=== PATIENT | male | born 1935 | race Caucasian/White ===

== ENCOUNTER 2018-10-13 04:53 | Emergency (ER) | payer OTHER, MEDICARE ==
[2018-10-13] MEDS: HYDROmorphone 2 MG/ML SDV IM ONE (05:12)
--- NOTE | 2018-10-13 05:25 | EDM.PDOC ---
ED HPI GENERAL MEDICAL PROBLEM - General Chief Complaint: General Stated Complaint: FALL Time Seen by Provider: 10/13/18 04:55 Source of Information: Reports: Patient History Limitations: Reports: No Limitations - History of Present Illness INITIAL COMMENTS - FREE TEXT/NARRATIVE: Patient is 83 year old male with PMH of Parkinson disease, HTN and gout. Patient has severe end stage Parkinson's disease. According to son he fell of his wheelchair yesterday night, while brushing his teeth and son put him to bed. He woke up today for his Parkinson's medication and was moaning. Son taught he was moaning from pain, hence called ambulance. Also about 1 wk ago fell and hurt his left arm and has developed a large bruise of the left arm. Pt is moaning in the ER, but is moving his left arm and left hip to verbal commands. Onset Date: 10/12/18 Location: Reports: Lower Extremity, Left Quality: Reports: Ache Improves with: Reports: None Worsens with: Reports: None Associated Symptoms: Denies: Confusion, Chest Pain, Cough, Diaphoresis, Fever/ Chills, Headaches, Nausea/Vomiting, Rash, Seizure, Shortness of Breath, Syncope , Weakness - Related Data Allergies Allergy/AdvReac Type Severity Reaction Status Date / Time gabapentin Allergy Nausea and Verified 10/13/18 05:35 Vomiting ibuprofen Allergy Nausea and Verified 10/13/18 05:35 Vomiting lisinopril Allergy Cough Verified 10/13/18 05:35 morphine Allergy Respiratory Verified 10/13/18 05:35 Depression naproxen Allergy Nausea and Verified 10/13/18 05:35 Vomiting oxycodone [Oxycodone] Allergy Respiratory Verified 10/13/18 05:35 Depression Home Meds: Home Meds Acetaminophen [Tylenol] 650 mg PO Q4HR PRN 11/29/12 [History] Allopurinol [Zyloprim] 100 mg PO DAILY 11/29/12 [History] Aspirin/Calcium Carbonate/Mag [Aspirin Buffered 325 mg Tab] 325 mg PO DAILY [History] Atenolol 25 mg PO DAILY 11/29/12 [History] Carbidopa/Levodopa [Carbidopa-Levodopa 25-250] 1.5 each PO TID 11/29/12 [History ] Carbidopa/Levodopa [Sinemet Cr 50-200 Tablet] 1 each PO BEDTIME 11/29/12 [ History] Losartan [Cozaar] 50 mg PO DAILY 11/29/12 [History] Multivitamin [Multi Vitamin Daily] 1 each PO DAILY 11/29/12 [History] Fishtail-3/DHA/Epa/Fish Oil [Fish Oil 1,000 mg Softgel] 1 each PO DAILY 11/29/12 [ History] Omeprazole 20 mg PO DAILY 11/29/12 [History] amLODIPine Besylate [Norvasc] 10 mg PO DAILY 11/29/12 [History] hydroCHLOROthiazide [Hydrochlorothiazide] 12.5 mg PO DAILY 11/29/12 [History] Past Medical History Cardiovascular History: Reports: Hypertension ED ROS GENERAL - Review of Systems Review Of Systems: Unable To Obtain (due to severe end stage parkinson's disease.) Constitutional: Reports: Fever ED EXAM, GENERAL - Physical Exam Exam: See Below Exam Limited By: Other (moans, has lost ability to speak secondary to Parkinson's disease and is bedridden, needs help with ADLs) General Appearance: Alert, WD/WN, Other (moaning in the bed and drooling form his mouth. ) Eye Exam: Bilateral Eye: EOMI, PERRL Ears: Normal External Exam, Normal Canal, Hearing Grossly Normal, Normal TMs Ear Exam: Bilateral Ear: Auricle Normal, Canal Normal, TM normal Nose: Normal Inspection, Normal Mucosa, No Blood Throat/Mouth: Normal Inspection, Normal Lips, Normal Teeth, Normal Gums, Normal Oropharynx, Normal Voice, No Airway Compromise Head: Atraumatic, Normocephalic Neck: Normal Inspection, Supple, Non-Tender, Full Range of Motion Respiratory/Chest: No Respiratory Distress, Lungs Clear, Normal Breath Sounds, No Accessory Muscle Use, Chest Non-Tender Cardiovascular: Normal Peripheral Pulses, Regular Rate, Rhythm, No Edema, No Gallop, No JVD, No Murmur, No Rub GI/Abdominal: Normal Bowel Sounds, Soft, Non-Tender, No Organomegaly, No Distention, No Abnormal Bruit, No Mass Extremities: Normal Inspection, Normal Range of Motion, No Pedal Edema, Normal Capillary Refill, Other (left lower extremity:There is shortening of the left limb and the foot is laterally rotated. No obvious swelling or bruising. He is moving his left foot , knee and hip to verbal commands. Tender over the lateral aspect of hip to deep palpation.) Skin Exam: Warm, Intact, Ecchymosis (Old bruising of the left arm large area. He is able to move the arm and shoulder well. Non tender.), Other (left leg: patient has a chronic wound over the left leg which has been slowly healing. ) Course - Vital Signs Text/Narrative:: 83 year old elderly male with end stage Parkinson's disease, apparently had had a fall from his bed last night. Moaning in the emergency room. He has old skin bruising over left arm, but able to move his arm and forearm without discomfort.He does have normal range of motion at his left hip, knee and ankle. No skin bruising noted over lower extremity. He is slightly tender over the left hip laterally. X-ray left hip and pelvis shows fracture of the intertrochanteric fracture. Pt did receive Dilaudid 1mg Im on arrival. Pt's family reassured that he has left hip intertrochanteric fracture of the neck left lower extremity. I did contact [facility] and discussed patient with Dr. Eng, Orthopedic surgeon contact lens edge buffer. Dr Eng agrees to consult with patient. I did contact Dr. Kunz, Hospitalist contact lens edge buffer and discuss patient with him. CBC, CMP and PT and INR and EKG ordered for pre-op labs. Pt has Peña catheter in place. Has peripheral IV inserted. Pt appears comfortable.Will keep him NPO until evaluated at [facility]. Pt's CBC shows elevated white count of 18.4K. He was given Ancef 1gm IV. Have ordered Chest Xray portable which appear stable, no consolidation noted and UA is negative for infection. Also his CMP is stable other then slightly elevated creat of 1.32 from 1.21 which is his baseline. As he has been NPO have started him on NS 125cc/hr. PT and INR normal. His EKG in Sinus rhythm. Pt will be transferred by Ambulance to [facility].Pt is hemodynamically stable at the time of transfer. Further care per Dr. Eng/Dr. Kunz. Last Recorded V/S: Last Vital Signs Temp 99 F 10/13/18 05:48 Pulse 89 10/13/18 05:48 Resp 20 10/13/18 05:48 BP 139/61 10/13/18 05:48 Pulse Ox 94 L 10/13/18 05:48 - Orders/Labs/Meds Orders: Active Orders 24 hr Category Date Time Status EKG Documentation Completion [RC] ASDIRECTED Care 10/13/18 06:17 Active Insert Peña Catheter [Insert Urinary Catheter] [OM.PC] Care 10/13/18 06:15 Ordered Q24H Urinary Catheter Assessment [RC] ASDIRECTED Care 10/13/18 06:09 Active Chest 1V Frontal [CR] Stat Exams 10/13/18 07:52 Ordered UA W/MICROSCOPIC [URIN] Stat Lab 10/13/18 08:00 Results Sodium Chloride 0.9% @ 125 MLS/HR (1000ml) Med 10/13/18 08:00 Ordered Sodium Chloride 0.9% [Normal Saline] 1,000 ml IV ASDIRECTED Sodium Chloride 0.9% [Saline Flush] Med 10/13/18 06:10 Active 10 ml FLUSH ASDIRECTED PRN Peripheral IV Insertion Adult [OM.PC] Routine Oth 10/13/18 06:10 Ordered EKG 12 Lead [EK] Routine Ther 10/13/18 06:17 Ordered Medication Orders Sodium Chloride (Normal Saline) 1,000 mls @ 125 mls/hr IV ASDIRECTED MIRTA Last Admin: 10/13/18 08:20 Dose: 125 mls/hr Sodium Chloride (Saline Flush) 10 ml FLUSH ASDIRECTED PRN PRN Reason: Keep Vein Open Last Admin: 10/13/18 06:38 Dose: 10 ml Labs: Laboratory Tests 10/13/18 10/13/18 10/13/18 Range/Units 06:15 06:15 06:15 WBC 18.4 H D (4.0-11.0) K/uL RBC 3.15 L (4.50-6.50) M/uL Hgb 10.7 L (13.0-18.0) g/dL Hct 32.0 L (40.0-54.0) % MCV 102 H (76-96) fL MCH 34.0 H (27.0-32.0) pg MCHC 33.4 (31.0-35.0) g/dL RDW 13.4 (11.0-16.0) % Plt Count 226 (150-400) K/uL MPV 10.9 H (6.0-10.0) fL Neut % (Auto) 86.7 H (45.0-70.0) % Lymph % (Auto) 4.4 L (20.0-40.0) % [place] % (Auto) 8.6 (3.0-10.0) % Eos % (Auto) 0.1 L (1.0-5.0) % Baso % (Auto) 0.2 (0.0-0.5) % Neut # (Auto) 15.93 H (2.00-7.50) K/uL Lymph # (Auto) 0.80 L (1.50-4.00) K/uL [place] # (Auto) 1.58 H (0.20-0.80) K/uL Eos # (Auto) 0.02 L (0.04-0.40) K/uL Baso # (Auto) 0.03 (0.02-0.10) K/uL PT 9.6 (9.0-11.5) sec INR 1.0 (1.0-3.5) APTT 23.5 L (24.4-33.2) SECONDS Sodium 143 (136-145) mmol/L Potassium 5.0 (3.5-5.1) mmol/L Chloride 108 H (98-107) mmol/L Carbon Dioxide 24.1 (21.0-32.0) mmol/L Anion Gap 15.9 H (5.0-15.0) mmol/L BUN 37 H (8-26) mg/dL Creatinine 1.32 H (0.70-1.30) mg/dL Est Cr Clr Drug Dosing TNP Estimated GFR (MDRD) 52 L (>60) MLS/MIN BUN/Creatinine Ratio 28.0 H (6-25) Glucose 105 H (74-100) mg/dL Calcium 9.1 (8.5-10.1) mg/dL Total Bilirubin 1.0 D (0.0-1.0) mg/dL AST 29 (15-37) U/L ALT 13 (12-78) U/L Alkaline Phosphatase 153 H (46-116) U/L Total Protein 7.2 (6.4-8.2) g/dL Albumin 3.8 (3.4-5.0) g/dL Globulin 3.4 (2.2-4.2) g/dL Albumin/Globulin Ratio 1.1 (0.8-2.0) Urine Color Urine Appearance (CLEAR) Urine pH (5.0-8.0) Ur Specific [place] (1.003-1.030) Urine Protein (NEGATIVE) mg/dL Urine Glucose (UA) (NEGATIVE) mg/dL Urine Ketones (NEGATIVE) mg/dL Urine Occult Blood (NEGATIVE) Urine Nitrite (NEGATIVE) Urine Bilirubin (NEGATIVE) Urine Urobilinogen (0.2-1.0) E.U./dL Ur Leukocyte Esterase (NEGATIVE) 10/13/18 Range/Units 08:00 WBC (4.0-11.0) K/uL RBC (4.50-6.50) M/uL Hgb (13.0-18.0) g/dL Hct (40.0-54.0) % MCV (76-96) fL MCH (27.0-32.0) pg MCHC (31.0-35.0) g/dL RDW (11.0-16.0) % Plt Count (150-400) K/uL MPV (6.0-10.0) fL Neut % (Auto) (45.0-70.0) % Lymph % (Auto) (20.0-40.0) % [place] % (Auto) (3.0-10.0) % Eos % (Auto) (1.0-5.0) % Baso % (Auto) (0.0-0.5) % Neut # (Auto) (2.00-7.50) K/uL Lymph # (Auto) (1.50-4.00) K/uL [place] # (Auto) (0.20-0.80) K/uL Eos # (Auto) (0.04-0.40) K/uL Baso # (Auto) (0.02-0.10) K/uL PT (9.0-11.5) sec INR (1.0-3.5) APTT (24.4-33.2) SECONDS Sodium (136-145) mmol/L Potassium (3.5-5.1) mmol/L Chloride (98-107) mmol/L Carbon Dioxide (21.0-32.0) mmol/L Anion Gap (5.0-15.0) mmol/L BUN (8-26) mg/dL Creatinine (0.70-1.30) mg/dL Est Cr Clr Drug Dosing Estimated GFR (MDRD) (>60) MLS/MIN BUN/Creatinine Ratio (6-25) Glucose (74-100) mg/dL Calcium (8.5-10.1) mg/dL Total Bilirubin (0.0-1.0) mg/dL AST (15-37) U/L ALT (12-78) U/L Alkaline Phosphatase (46-116) U/L Total Protein (6.4-8.2) g/dL Albumin (3.4-5.0) g/dL Globulin (2.2-4.2) g/dL Albumin/Globulin Ratio (0.8-2.0) Urine Color Yellow Urine Appearance Clear (CLEAR) Urine pH 5.0 (5.0-8.0) Ur Specific [place] 1.020 (1.003-1.030) Urine Protein 30 H (NEGATIVE) mg/dL Urine Glucose (UA) Negative (NEGATIVE) mg/dL Urine Ketones 15 H (NEGATIVE) mg/dL Urine Occult Blood Trace-intact H (NEGATIVE) Urine Nitrite Negative (NEGATIVE) Urine Bilirubin Small H (NEGATIVE) Urine Urobilinogen 0.2 (0.2-1.0) E.U./dL Ur Leukocyte Esterase Negative (NEGATIVE) Meds: Medications Generic Name Dose Route Start Last Admin Trade Name Freq PRN Reason Stop Dose Admin Sodium Chloride 1,000 mls @ 125 mls/hr 10/13/18 08:00 10/13/18 08:20 Normal Saline IV 125 mls/hr ASDIRECTED MIRTA Administration Sodium Chloride 10 ml 10/13/18 06:10 10/13/18 06:38 Saline Flush FLUSH 10 ml ASDIRECTED PRN Administration Keep Vein Open Discontinued Medications Generic Name Dose Route Start Last Admin Trade Name Freq PRN Reason Stop Dose Admin Hydromorphone HCl 1 mg 10/13/18 05:36 10/13/18 05:12 Dilaudid IM 10/13/18 05:37 1 mg ONETIME ONE Administration Hydromorphone HCl 0.5 mg 10/13/18 06:39 10/13/18 06:38 Dilaudid IVPUSH 10/13/18 06:40 0.5 mg ONETIME ONE Administration Cefazolin Sodium 1 gm/ Sodium 50 mls @ 200 mls/hr 10/13/18 07:53 10/13/18 08: 22 Chloride IV 10/13/18 08:07 200 mls/hr ONETIME ONE Administration Departure - Departure Time of Disposition: 08:30 Disposition: DC/Tfer to Acute Hospital 02 Condition: Fair Clinical Impression: Fracture, intertrochanteric, left femur, Leucocytosis - Discharge Information *PRESCRIPTION DRUG MONITORING PROGRAM REVIEWED*: Not Applicable *COPY OF PRESCRIPTION DRUG MONITORING REPORT IN PATIENT [place]ARREN: Not Applicable Referrals: PCP,None [Primary Care Provider] - Forms: ED Department Discharge - Problem List & Annotations (1) Fracture, intertrochanteric, left femur SNOMED Code(s): 448627669 Code(s): S72.142A - DISPLACED INTERTROCHANTERIC FRACTURE OF LEFT FEMUR, INIT Status: Acute Current Visit: No Qualifiers: Encounter type: initial encounter - Problem List Review Problem List Initiated/Reviewed/Updated: Yes - My Orders Last 24 Hours: My Active Orders 10/13/18 06:09 Urinary Catheter Assessment [RC] ASDIRECTED 10/13/18 06:10 Sodium Chloride 0.9% [Saline Flush] 10 ml FLUSH ASDIRECTED PRN Peripheral IV Insertion Adult [OM.PC] Routine 10/13/18 06:15 Insert Peña Catheter [Insert Urinary Catheter] [OM.PC] Q24H 10/13/18 06:17 EKG Documentation Completion [RC] ASDIRECTED EKG 12 Lead [EK] Routine 10/13/18 07:52 Chest 1V Frontal [CR] Stat 10/13/18 08:00 UA W/MICROSCOPIC [URIN] Stat Sodium Chloride 0.9% @ 125 MLS/HR (1000ml) Sodium Chloride 0.9% [Normal Saline] 1,000 ml IV ASDIRECTED - Assessment/Plan Last 24 Hours: My Active Orders 10/13/18 06:09 Urinary Catheter Assessment [RC] ASDIRECTED 10/13/18 06:10 Sodium Chloride 0.9% [Saline Flush] 10 ml FLUSH ASDIRECTED PRN Peripheral IV Insertion Adult [OM.PC] Routine 10/13/18 06:15 Insert Peña Catheter [Insert Urinary Catheter] [OM.PC] Q24H 10/13/18 06:17 EKG Documentation Completion [RC] ASDIRECTED EKG 12 Lead [EK] Routine 10/13/18 07:52 Chest 1V Frontal [CR] Stat 10/13/18 08:00 UA W/MICROSCOPIC [URIN] Stat Sodium Chloride 0.9% @ 125 MLS/HR (1000ml) Sodium Chloride 0.9% [Normal Saline] 1,000 ml IV ASDIRECTED Assessment:: Left hip intertrochanteric fracture leucocytosis Plan: 3 year old elderly male with end stage Parkinson's disease, apparently had had a fall from his bed last night. Moaning in the emergency room. He has old skin bruising over left arm, but able to move his arm and forearm without discomfort.He does have normal range of motion at his left hip, knee and ankle. No skin bruising noted over lower extremity. He is slightly tender over the left hip laterally. X-ray left hip and pelvis shows fracture of the intertrochanteric fracture. Pt did receive Dilaudid 1mg Im on arrival. Pt's family reassured that he has left hip intertrochanteric fracture of the neck left lower extremity. I did contact [facility] and discussed patient with Dr. Eng, Orthopedic surgeon contact lens edge buffer. Dr Eng agrees to consult with patient. I did contact Dr. Kunz, Hospitalist contact lens edge buffer and discuss patient with him. CBC, CMP and PT and INR and EKG ordered for pre-op labs. Pt has Peña catheter in place. Has peripheral IV inserted. Pt appears comfortable.Will keep him NPO until evaluated at [facility]. Pt's CBC shows elevated white count of 18.4K. He was given Ancef 1gm IV. Have ordered Chest Xray portable which appear stable, no consolidation noted and UA is negative for infection. Also his CMP is stable other then slightly elevated creat of 1.32 from 1.21 which is his baseline. As he has been NPO have started him on NS 125cc/hr. PT and INR normal. His EKG in Sinus rhythm. Pt will be transferred by Ambulance to [facility].Pt is hemodynamically stable at the time of transfer. Further care per Dr. Eng/Dr. Kunz.
[2018-10-13] MEDS: Sodium Chloride 0.9% 10 ML Syringe FLUSH PRN (06:38)
[2018-10-13] MEDS: HYDROmorphone 2 MG/ML Syringe IVPUSH ONE (06:38)
[2018-10-13 06:51] VITALS: BP 139/61
--- NOTE | 2018-10-13 07:53 | CR ---
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 No other acute abnormalities. IMPRESSION: Left hip fracture. [id number] [facility]
[2018-10-13] MEDS: Sodium Chloride 0.9% 1,000 ML IV SCH (08:20)
[2018-10-13] MEDS: ceFAZolin 1 GM in Sodium Chloride 0.9% 50 ML IV ONE (08:22)
[2018-10-13] MEDS ORDERED: HYDROmorphone 2 MG/ML SDV ONE (08:34)
--- NOTE | 2018-10-13 11:21 | CR ---
DATE OF SERVICE: 10/13/18 CLINICAL DATA: elevated white count AP CHEST: Comparison is made to a prior exam dated 10/13/13. The patient has taken a very poor inspiration. The heart size is normal. The aorta is ectatic. The pulmonary vasculature appears prominent. It is probably accentuated by the poor inspiration. The lungs are clear. No pneumothorax. No pleural effusions. [id number] [facility]
== END 2018-10-13 08:40 ==
LOC: LB.ED 04:53
DX: S72.142A Displaced intertrochanteric fracture of left femur, initial encounter for closed fracture (principal); D72.829 Elevated white blood cell count, unspecified; I10 Essential (primary) hypertension; M10.9 Gout, unspecified; G20 Parkinson's disease; Z88.8 Allergy status to other drugs, medicaments and biological substances; Z88.6 Allergy status to analgesic agent; W05.0XXA Fall from non-moving wheelchair, initial encounter
CPT/HCPCS: 36415; 51702; 71045; 73502; 80053; 81001; 85025; 85610; 85730; 93005; 96365; 96372; 96375; 99284; A0425; A0429; J0690; J1170; J7030; J7050; 99285

== ENCOUNTER 2018-11-12 06:47 | Observation (INO) | payer OTHER, MEDICARE ==
--- NOTE | 2018-11-12 07:37 | EDM.PDOC ---
ED HPI GENERAL MEDICAL PROBLEM - General Chief Complaint: Lower Extremity Injury/Pain Stated Complaint: pain Time Seen by Provider: 11/12/18 07:18 Source of Information: Reports: Family, RN History Limitations: Reports: Altered Mental Status - History of Present Illness INITIAL COMMENTS - FREE TEXT/NARRATIVE: 83 yr male presents with acute pain to left hip, recent surgery to left hip and had been in a LTCF, and returned home. and son are providing care. States the pain to the left hip has become severe with transfer and wanted to have him checked. He did come by ambulance. Will get an x-ray to left hip and to abdomen, pt hasn't had a BM since Thursday. Treatments [employer]: Reports: Other (see below) Other Treatments [employer]: tramadol at 0500 - Related Data Allergies Allergy/AdvReac Type Severity Reaction Status Date / Time ibuprofen Allergy Nausea and Verified 10/13/18 05:35 Vomiting lisinopril Allergy Cough Verified 11/12/18 09:10 morphine Allergy Respiratory Verified 10/13/18 05:35 Depression naproxen Allergy Nausea and Verified 10/13/18 05:35 Vomiting oxycodone [Oxycodone] Allergy Respiratory Verified 10/13/18 05:35 Depression Home Meds: Home Meds Allopurinol [Zyloprim] 100 mg PO DAILY PRN 11/29/12 [History] Atenolol 25 mg PO DAILY 11/29/12 [History] Carbidopa/Levodopa [Carbidopa-Levodopa 25-250] 1 each PO Q2HR 11/29/12 [History] Carbidopa/Levodopa [Sinemet Cr 50-200 Tablet] 1 each PO BEDTIME 11/29/12 [ History] Losartan [Cozaar] 50 mg PO DAILY 11/29/12 [History] Omeprazole 20 mg PO DAILY 11/29/12 [History] amLODIPine Besylate [Norvasc] 10 mg PO DAILY 11/29/12 [History] hydroCHLOROthiazide [Hydrochlorothiazide] 12.5 mg PO DAILY 11/29/12 [History] Acetaminophen [Acetaminophen Extra Strength] 1,000 mg PO Q6HR PRN 11/12/18 [ History] Aspirin [Halfprin] 81 mg PO DAILY 11/12/18 [History] Gabapentin [Neurontin] 100 mg PO BID 11/12/18 [History] Latanoprost/Pf [Latanoprost 0.005% Eye Drop] 7.5 ml EYELF BEDTIME 11/12/18 [ History] Melatonin 3 mg PO BEDTIME PRN 11/12/18 [History] Polyethylene Glycol 3350 [MiraLAX] 17 gm PO DAILY PRN 11/12/18 [History] traMADol [Ultram] 50 mg PO QID PRN 11/12/18 [History] Past Medical History Cardiovascular History: Reports: Hypertension Review of Systems - Review of Systems Review Of Systems: See Below Mouth/Throat: Reports: No Symptoms Respiratory: Reports: No Symptoms GI/Abdominal: Reports: Other (No BM since Thursday) Genitourinary: Reports: Incontinence Musculoskeletal: Reports: Other (family states left hip pain with transfer today , rate pain 8/10 per visual observation at home) Skin: Reports: Other (suture line is CDI to left hip) ED EXAM, GENERAL - Physical Exam Exam: See Below Exam Limited By: No Limitations General Appearance: Alert, No Apparent Distress Throat/Mouth: No Airway Compromise Head: Atraumatic, Normocephalic Neck: Normal Inspection, Supple, Non-Tender Respiratory/Chest: No Respiratory Distress, Lungs Clear, Normal Breath Sounds Cardiovascular: Normal Peripheral Pulses, Regular Rate, Rhythm, No Edema GI/Abdominal: Soft, Non-Tender Extremities: No Pedal Edema Skin Exam: Warm, Dry, Normal Color Course - Vital Signs Last Recorded V/S: Last Vital Signs Temp 99.0 F 11/12/18 07:32 Pulse 63 11/12/18 07:32 Resp BP 154/51 H 11/12/18 07:32 Pulse Ox 93 L 11/12/18 07:32 - Orders/Labs/Meds Orders: Active Orders 24 hr Category Date Time Status CULTURE BLOOD [BC] Stat Lab 11/12/18 09:10 Received Medication Orders Non-Formulary Medication (Acetaminophen [Acetaminophen Extra Strength]) 1,000 mg PO Q6HR PRN PRN Reason: Pain Non-Formulary Medication (Amlodipine Besylate [Norvasc]) 10 mg PO DAILY [facility] Non-Formulary Medication (Aspirin [Halfprin]) 81 mg PO DAILY [facility] Non-Formulary Medication (Atenolol [Atenolol]) 25 mg PO DAILY [facility] Non-Formulary Medication (Carbidopa/Levodopa [Sinemet Cr 50-200]) 1 each PO BEDTIME [facility] Non-Formulary Medication (Gabapentin [Neurontin]) 100 mg PO BID [facility] Non-Formulary Medication (Hydrochlorothiazide [Hydrochlorothiazide]) 12.5 mg PO DAILY [facility] Non-Formulary Medication (Latanoprost/Pf [Latanoprost 0.005% Eye Drop]) 7.5 ml EYELF BEDTIME [facility] Non-Formulary Medication (Losartan [Cozaar]) 50 mg PO DAILY [facility] Non-Formulary Medication (Melatonin [Melatonin]) 3 mg PO BEDTIME PRN PRN Reason: Sleep Non-Formulary Medication (Omeprazole [Omeprazole]) 20 mg PO DAILY [facility] Non-Formulary Medication (Polyethylene Glycol 3350 [Miralax]) 17 gm PO DAILY PRN PRN Reason: Constipation Non-Formulary Medication (Tramadol [Ultram]) 50 mg PO QID PRN PRN Reason: Pain Labs: Laboratory Tests 11/12/18 11/12/18 11/12/18 Range/Units 07:35 07:35 08:25 WBC 15.8 H (4.0-11.0) K/uL RBC 3.17 L (4.50-6.50) M/uL Hgb 10.4 L (13.0-18.0) g/dL Hct 31.7 L (40.0-54.0) % MCV 100 H (76-96) fL MCH 32.8 H (27.0-32.0) pg MCHC 32.8 (31.0-35.0) g/dL RDW 14.4 (11.0-16.0) % Plt Count 250 (150-400) K/uL MPV 9.5 (6.0-10.0) fL Neut % (Auto) 75.1 H (45.0-70.0) % Lymph % (Auto) 13.7 L (20.0-40.0) % [place] % (Auto) 9.5 (3.0-10.0) % Eos % (Auto) 1.5 (1.0-5.0) % Baso % (Auto) 0.2 (0.0-0.5) % Neut # (Auto) 11.91 H (2.00-7.50) K/uL Lymph # (Auto) 2.17 (1.50-4.00) K/uL [place] # (Auto) 1.50 H (0.20-0.80) K/uL Eos # (Auto) 0.23 (0.04-0.40) K/uL Baso # (Auto) 0.03 (0.02-0.10) K/uL Sodium 137 (136-145) mmol/L Potassium 4.4 (3.5-5.1) mmol/L Chloride 100 (98-107) mmol/L Carbon Dioxide 27.0 (21.0-32.0) mmol/L Anion Gap 14.4 (5.0-15.0) mmol/L BUN 33 H (8-26) mg/dL Creatinine 0.95 D (0.70-1.30) mg/dL Est Cr Clr Drug Dosing TNP Estimated GFR (MDRD) > 60 (>60) MLS/MIN BUN/Creatinine Ratio 34.7 H (6-25) Glucose 89 (74-100) mg/dL Lactic Acid 0.78 L (0.90-1.70) mmol/L Calcium 8.7 (8.5-10.1) mg/dL Urine Color Urine Appearance (CLEAR) Urine pH (5.0-8.0) Ur Specific [place] (1.003-1.030) Urine Protein (NEGATIVE) mg/dL Urine Glucose (UA) (NEGATIVE) mg/dL Urine Ketones (NEGATIVE) mg/dL Urine Occult Blood (NEGATIVE) Urine Nitrite (NEGATIVE) Urine Bilirubin (NEGATIVE) Urine Urobilinogen (0.2-1.0) E.U./dL Ur Leukocyte Esterase (NEGATIVE) 11/12/18 Range/Units 09:00 WBC (4.0-11.0) K/uL RBC (4.50-6.50) M/uL Hgb (13.0-18.0) g/dL Hct (40.0-54.0) % MCV (76-96) fL MCH (27.0-32.0) pg MCHC (31.0-35.0) g/dL RDW (11.0-16.0) % Plt Count (150-400) K/uL MPV (6.0-10.0) fL Neut % (Auto) (45.0-70.0) % Lymph % (Auto) (20.0-40.0) % [place] % (Auto) (3.0-10.0) % Eos % (Auto) (1.0-5.0) % Baso % (Auto) (0.0-0.5) % Neut # (Auto) (2.00-7.50) K/uL Lymph # (Auto) (1.50-4.00) K/uL [place] # (Auto) (0.20-0.80) K/uL Eos # (Auto) (0.04-0.40) K/uL Baso # (Auto) (0.02-0.10) K/uL Sodium (136-145) mmol/L Potassium (3.5-5.1) mmol/L Chloride (98-107) mmol/L Carbon Dioxide (21.0-32.0) mmol/L Anion Gap (5.0-15.0) mmol/L BUN (8-26) mg/dL Creatinine (0.70-1.30) mg/dL Est Cr Clr Drug Dosing Estimated GFR (MDRD) (>60) MLS/MIN BUN/Creatinine Ratio (6-25) Glucose (74-100) mg/dL Lactic Acid (0.90-1.70) mmol/L Calcium (8.5-10.1) mg/dL Urine Color Yellow Urine Appearance Clear (CLEAR) Urine pH 6.5 (5.0-8.0) Ur Specific [place] 1.015 (1.003-1.030) Urine Protein Negative (NEGATIVE) mg/dL Urine Glucose (UA) Negative (NEGATIVE) mg/dL Urine Ketones Trace H (NEGATIVE) mg/dL Urine Occult Blood Negative (NEGATIVE) Urine Nitrite Negative (NEGATIVE) Urine Bilirubin Negative (NEGATIVE) Urine Urobilinogen 0.2 (0.2-1.0) E.U./dL Ur Leukocyte Esterase Negative (NEGATIVE) Meds: Medications Generic Name Dose Route Start Last Admin Trade Name Freq PRN Reason Stop Dose Admin Non-Formulary Medication 1,000 mg 11/12/18 10:21 Acetaminophen [Acetaminophen Extra Strength] PO Q6HR PRN Pain Non-Formulary Medication 10 mg 11/12/18 10:30 Amlodipine Besylate [Norvasc] PO DAILY [facility] Non-Formulary Medication 81 mg 11/12/18 10:30 Aspirin [Halfprin] PO DAILY [facility] Non-Formulary Medication 25 mg 11/12/18 10:30 Atenolol [Atenolol] PO DAILY [facility] Non-Formulary Medication 1 each 11/12/18 20:00 Carbidopa/Levodopa [Sinemet Cr 50-200] PO BEDTIME [facility] Non-Formulary Medication 100 mg 11/12/18 10:30 Gabapentin [Neurontin] PO BID [facility] Non-Formulary Medication 12.5 mg 11/13/18 08:00 Hydrochlorothiazide [Hydrochlorothiazide] PO DAILY [facility] Non-Formulary Medication 7.5 ml 11/12/18 20:00 Latanoprost/Pf [Latanoprost 0.005% Eye Drop] EYELF BEDTIME [facility] Non-Formulary Medication 50 mg 11/12/18 10:30 Losartan [Cozaar] PO DAILY [facility] Non-Formulary Medication 3 mg 11/12/18 10:26 Melatonin [Melatonin] PO BEDTIME PRN Sleep Non-Formulary Medication 20 mg 11/12/18 20:00 Omeprazole [Omeprazole] PO DAILY [facility] Non-Formulary Medication 17 gm 11/12/18 10:26 Polyethylene Glycol 3350 [Miralax] PO DAILY PRN Constipation Non-Formulary Medication 50 mg 11/12/18 10:26 Tramadol [Ultram] PO QID PRN Pain Discontinued Medications Generic Name Dose Route Start Last Admin Trade Name Freq PRN Reason Stop Dose Admin Sodium Biphosphate/Sodium Phosphate 133 ml 11/12/18 09:14 Fleet Enema RECTAL 11/12/18 09:15 ONETIME ONE - Re-Assessments/Exams Free Text/Narrative Re-Assessment/Exam: 11/12/18 09:17 left hip pain and abdominal pain: S/P left hip replacement, hx of parkinson's. X-ray of left hip and abdomen. Excessive BM to abdomen. Radiology read of x-rays. No free air noted. Slight elevated WBC, U/A ordered , lactic acid and blood cultures. will place on observation and administer soap suds enema. Medication as at home. VS every 4 hour 0 Departure - Departure Time of Disposition: 09:40 Disposition: Refer to Observation Condition: Fair Clinical Impression: Abdominal pain, Left hip pain, Constipation - Discharge Information *PRESCRIPTION DRUG MONITORING PROGRAM REVIEWED*: Not Applicable *COPY OF PRESCRIPTION DRUG MONITORING REPORT IN PATIENT [place]ARREN: Not Applicable - My Orders Last 24 Hours: My Active Orders 11/12/18 09:10 CULTURE BLOOD [BC] Stat - Assessment/Plan Last 24 Hours: My Active Orders 11/12/18 09:10 CULTURE BLOOD [BC] Stat Plan: Left hip pain and abdominal pain, constipation: X-ray of left hip and abdomen. Excessive BM to abdomen. Radiology read of x- rays. No free air noted. Slight elevated WBC, U/A ordered, lactic acid and blood cultures. will place on observation and administer soap suds enema. Medication as at home. VS every 4 hour
--- NOTE | 2018-11-12 08:53 | CR ---
DATE OF SERVICE: 11/12/2018 CLINICAL DATA: Pain Supine Abdomen: No priors. There is a large amount of stool present throughout the colon consistent with constipation. There is some small bowel gas. No dilated loops of small bowel. 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 There are laminectomy defects at the L4 and L5 levels. There are vascular calcifications in the pelvis. MTDD
--- NOTE | 2018-11-12 08:56 | CR ---
DATE OF SERVICE: 11/12/2018 CLINICAL DATA: Pain Left Hip: Comparison is made to a prior exam dated 05 October 2018. The patient is status post internal fixation of a left intertrochanteric fracture. No evidence of acute fracture or dislocation. 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 There are vascular calcifications in the soft tissues. MTDD
[2018-11-12] MEDS ORDERED: Sodium Phosphate,Monobasic/Sodium Phosphate,Dibasic Enema 133 ML Bottle RECTAL ONE (09:14)
[2018-11-12] MEDS ORDERED: Non-Formulary Medication 1 Each (Melatonin [Melatonin] 3 MG) PO PRN (10:26)
[2018-11-12] MEDS ORDERED: ATENOLOL 25 MG PO SCH (10:30)
[2018-11-12] MEDS ORDERED: Non-Formulary Medication 1 Each (Aspirin [Halfprin] 81 MG) PO SCH (10:30)
[2018-11-12] MEDS ORDERED: Non-Formulary Medication 1 Each (Losartan [Cozaar] 50 MG) PO SCH (10:30)
[2018-11-12] MEDS: AMLODIPINE BESYLATE 10 MG PO SCH (10:55)
[2018-11-12] MEDS ORDERED: traMADol 50 MG Tab ONE (11:02)
[2018-11-12] MEDS: CARBIDOPA PO SCH ×5 (14:34→21:48)
[2018-11-12] MEDS: [UNRECOGNIZED DRUG - OTHER] PO SCH ×5 (14:34→21:48)
[2018-11-12] MEDS ORDERED: Polyethylene Glycol 3350 Powder 17 GM Packet ONE (14:44)
[2018-11-12] MEDS: OMEPRAZOLE 20 MG PO SCH (20:20)
[2018-11-12] MEDS: Non-Formulary Medication 1 Each (Latanoprost/Pf [Latanoprost 0.005% Eye Drop] 7.5 ML) EYELF SCH (20:29)
[2018-11-13] MEDS: [UNRECOGNIZED DRUG - OTHER] PO SCH ×5 (00:07→22:41)
[2018-11-13] MEDS: CARBIDOPA PO SCH ×5 (00:07→22:41)
[2018-11-13] MEDS: ACETAMINOPHEN 1000 MG PO PRN ×2 (03:00→04:09)
[2018-11-13] MEDS ORDERED: Acetaminophen 325 MG Tab ONE (03:51)
[2018-11-13] MEDS ORDERED: Acetaminophen 500 MG Tab ONE (04:08)
[2018-11-13] MEDS ORDERED: [UNRECOGNIZED DRUG - OTHER] PO SCH (08:00)
[2018-11-13] MEDS ORDERED: CARBIDOPA PO SCH (08:00)
[2018-11-13] MEDS ORDERED: Non-Formulary Medication 1 Each (Hydrochlorothiazide [Hydrochlorothiazide] 12.5 MG) PO SCH (08:00)
[2018-11-13] MEDS: AMLODIPINE BESYLATE 10 MG PO SCH (08:39)
[2018-11-13] MEDS: HYDROCHLOROTHIAZIDE 25 MG PO SCH (08:42)
[2018-11-13] MEDS: OMEPRAZOLE 20 MG PO SCH (08:45)
[2018-11-13] MEDS: Aspirin 81 MG Tab.EC PO SCH (11:30)
--- NOTE | 2018-11-13 11:42 | PCM.PN ---
- General Info Date of Service: 11/13/18 Admission Dx/Problem (Free Text): left hip pain, abdominal pain and constipation Subjective Update: No verbal response from pt. Hx of Parkinson. Staff report pt is continuing with pain and grimace with turning. No BM since Thursday per family. Small BM yesterday with soap suds enema Functional Status: Reports: Tolerating Diet, Urinating - Review of Systems Gastrointestinal: Reports: Constipation. 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) - Patient Data Vitals - Most Recent: Last Vital Signs Temp 98.3 F 11/13/18 08:00 Pulse 71 11/13/18 08:00 Resp 20 11/13/18 08:00 BP 145/66 H 11/13/18 08:00 Pulse Ox 96 11/13/18 08:00 Weight - Most Recent: 168 lb 9 oz Faheem Results Last 24 Hours: Microbiology 11/12/18 09:10 Aerobic Blood Culture - Preliminary Blood NO GROWTH AFTER 1 DAY Anaerobic Blood Culture - Preliminary NO GROWTH AFTER 1 DAY Med Orders - Current: Current Medications Acetaminophen (Tylenol Extra Strength) 1,000 mg PO Q6H PRN PRN Reason: PAIN Aspirin (Halfprin) 81 mg PO DAILY [facility] (Amlodipine Besylate [Norvasc] 10 Mg)*Pt Own Med* 10 mg PO DAILY [facility] Last Admin: 11/13/18 08:39 Dose: 10 mg (Carbidopa/Levodopa [Sinemet Cr 50-200] 1 Each)*Pt Own Med* 1 each PO BEDTIME [facility] Last Admin: 11/12/18 20:18 Dose: 1 each (Gabapentin [ Neurontin] 100 Mg)* Pt Own Med* 100 mg PO BID [facility] Last Admin: 11/13/18 08:41 Dose: 100 mg Non-Formulary Medication (Latanoprost/Pf [Latanoprost 0.005% Eye Drop]) 7.5 ml EYELF BEDTIME [facility] Last Admin: 11/12/18 20:29 Dose: Not Given Non-Formulary Medication (Melatonin [Melatonin]) 3 mg PO BEDTIME PRN PRN Reason: Sleep (Omeprazole [ Omeprazole] 20 Mg)* Pt Own Med* 20 mg PO DAILY [facility] Last Admin: 11/13/18 08:45 Dose: 20 mg (Tramadol [Ultram] (50 Mg)*Pt Own Med*) 50 mg PO QID PRN PRN Reason: Pain Last Admin: 11/13/18 04:03 Dose: 50 mg (Atenolol [Atenolol] 50 Mg Tab)*Pt Own Med* 0 mg PO DAILY [facility] Last Admin: 11/13/18 08:40 Dose: 25 mg (Hydrochlorothiazide [ Hydrochlorothiazide] 25 Mg Tab)*Pt Own Med* 0 mg PO DAILY [facility] Last Admin: 11/13/18 08:42 Dose: 12.5 mg (Losartan [Cozaar] 100 Mg Tab)*Pt Own Med* 0 mg PO DAILY [facility] Last Admin: 11/13/18 08:44 Dose: 50 mg Carbidopa 25mg/Levodopa 250mg Tablet*Pt Own Med* 1 each PO ASDIRECTED [facility] Polyethylene Glycol (Miralax) 17 gm PO DAILY PRN PRN Reason: Constipation Discontinued Medications Acetaminophen (Tylenol) Confirm Administered Dose 650 mg .ROUTE .STK-MED ONE Stop: 11/13/18 03:52 Last Admin: 11/13/18 04:05 Dose: Not Given Acetaminophen (Tylenol Extra Strength) Confirm Administered Dose 1,000 mg .ROUTE .STK-MED ONE Stop: 11/13/18 04:09 Last Admin: 11/13/18 07:13 Dose: Not Given Non-Formulary Medication (Acetaminophen [Acetaminophen Extra Strength]) 1,000 mg PO Q6HR PRN PRN Reason: Pain Last Admin: 11/13/18 04:09 Dose: 1,000 mg Non-Formulary Medication (Aspirin [Halfprin]) 81 mg PO DAILY [facility] Last Admin: 11/12/18 10:55 Dose: Not Given Non-Formulary Medication (Atenolol [Atenolol]) 25 mg PO DAILY [facility] Last Admin: 11/12/18 10:56 Dose: Not Given Non-Formulary Medication (Hydrochlorothiazide [Hydrochlorothiazide]) 12.5 mg PO DAILY [facility] Non-Formulary Medication (Losartan [Cozaar]) 50 mg PO DAILY [facility] Last Admin: 11/12/18 10:56 Dose: Not Given Non-Formulary Medication (Polyethylene Glycol 3350 [Miralax]) 17 gm PO DAILY PRN PRN Reason: Constipation Carbidopa 25mg/Levodopa 250mg Tablet*Pt Own Med* 1 each PO Q2H [facility] Last Admin: 11/13/18 06:17 Dose: 1 each Polyethylene Glycol (Miralax) Confirm Administered Dose 17 gm .ROUTE .STK-MED ONE Stop: 11/12/18 14:45 Last Admin: 11/12/18 14:51 Dose: 17 gm Sodium Biphosphate/Sodium Phosphate (Fleet Enema) 133 ml RECTAL ONETIME ONE Stop: 11/12/18 09:15 Last Admin: 11/12/18 09:50 Dose: 133 ml Tramadol HCl (Ultram) Confirm Administered Dose 50 mg .ROUTE .STK-MED ONE Stop: 11/12/18 11:03 Last Admin: 11/12/18 11:18 Dose: Not Given - Exam General: Cooperative, No Acute Distress, Other (Awakens for medications and meals) HEENT: Mucous Membr. Moist/[place] Neck: Supple, Trachea Midline, No JVD Lungs: Clear to Auscultation, Normal Respiratory Effort, Other (decreased to bases) Cardiovascular: Regular Rate, Regular Rhythm, No Murmurs GI/Abdominal Exam: Normal Bowel Sounds, Soft, Non-Tender, No Distention Extremities: No Pedal Edema, Normal Capillary Refill, Other (No pain during exam. Staff medicating with tramadol and tylenol, crushing medications, giving in soft foods and ensure or juice.) Skin: Other (chronic wound to left dixon, Allevyn to dixon changed daily. Family states before hip surgery, PT had assisted with wound care, much improved.) Psy/Mental Status: Other (Pt is nodes occasional, mostly nonverbal.) - Problem List & Annotations (1) Abdominal pain SNOMED Code(s): 82839775 Code(s): R10.9 - UNSPECIFIED ABDOMINAL PAIN Status: Acute Current Visit: Yes (2) Constipation SNOMED Code(s): 68131327 Code(s): K59.00 - CONSTIPATION, UNSPECIFIED Status: Acute Current Visit: Yes (3) Left hip pain SNOMED Code(s): 65597158 Code(s): M25.552 - PAIN IN LEFT HIP Status: Acute Current Visit: Yes - Problem List Review Problem List Initiated/Reviewed/Updated: Yes - My Orders Last 24 Hours: My Active Orders 11/12/18 14:50 Polyethylene Glycol 3350 [MiraLAX] 17 gm PO DAILY PRN 11/12/18 15:49 CULTURE MRSA SURVEY [RM] Routine 11/12/18 20:00 Carbidopa/Levodopa [Sinemet CR 50-200] 1 each PO BEDTIME Latanoprost/Pf [Latanoprost 0.005% Eye Drop] 7.5 ml EYELF BEDTIME Omeprazole [Omeprazole] 20 mg PO DAILY 11/12/18 Lunch Soft Diet [DIET] 11/13/18 08:00 Acetaminophen [Tylenol Extra Strength] 1,000 mg PO Q6H PRN Aspirin [Halfprin] 81 mg PO DAILY Atenolol [Atenolol] 0 mg PO DAILY Hydrochlorothiazide [Hydrochlorothiazide] 0 mg PO DAILY Losartan [Cozaar] 0 mg PO DAILY Non-Formulary Medication [NF Drug] 1 each PO ASDIRECTED - Plan Plan:: Pain: Continue to position change every 2 hour and prn. Medicate with Tylenol or Tramadol as needed. X-ray yesterday and no fracture and no displacement. Surgical scars intact. Constipation: Continue with miralax daily and prune juice with meals as tolerated. Leukocytosis: U/A without infection, lactic acid level low 0.78 and no acute respiratory concerns. Pt may have acute elevation of WBC with pain, constipation, and stress. Continue to monitor for any infections. Discharge planning: Will discharge tomorrow to family care. Son is staying with pt and his mom to assist with total cares of this pt at home. Family requesting another day of pain medication before pt discharge.
[2018-11-13] MEDS: Acetaminophen 500 MG Tab PO PRN ×2 (11:50→22:44)
[2018-11-13] MEDS: Carbidopa/Levodopa 25-100 MG Tab PO SCH ×5 (12:00→23:05)
[2018-11-13] MEDS: Polyethylene Glycol 3350 Powder 17 GM Packet PO PRN (12:07)
[2018-11-13] MEDS: Non-Formulary Medication 1 Each (Latanoprost/Pf [Latanoprost 0.005% Eye Drop] 7.5 ML) EYELF SCH (20:27)
[2018-11-14] MEDS: [UNRECOGNIZED DRUG - OTHER] PO SCH ×4 (06:10→12:15)
[2018-11-14] MEDS: CARBIDOPA PO SCH ×4 (06:10→12:15)
[2018-11-14] MEDS: AMLODIPINE BESYLATE 10 MG PO SCH (08:00)
[2018-11-14] MEDS: Aspirin 81 MG Tab.EC PO SCH (08:01)
[2018-11-14] MEDS: OMEPRAZOLE 20 MG PO SCH (08:02)
[2018-11-14] MEDS: HYDROCHLOROTHIAZIDE 25 MG PO SCH (08:03)
[2018-11-14] MEDS: Polyethylene Glycol 3350 Powder 17 GM Packet PO PRN (10:18)
[2018-11-14 11:20] VITALS: BP 146/63; PULSE 72
--- NOTE | 2018-11-14 13:09 | PCM.DCSUM1 ---
Discharge Summary - Hospital Course HPI Initial Comments: This 83 yr male presented to ER via ambulance with severe pain to left hip, abdomen and constipation. X-rays completed of hip and abdomen. No acute findings. Left hip placement is intact, from 10-13-18 fracture per radiology read of x-rays. Pt has history of hypertension, parkinsonism, unequal leg length, arthropathy, paralysis agitans, chronic wound of left dixon, S/P left intertrochanteris fracture and surgery with intramedullary nailing on 10-14-18. Leukocytosis noted in ER and has improved 11.5 today, no UTI noted, afebrile, no cough noted. Pt was admitted for observation for pain control and constipation. Pain has been controlled with Tramadol and Tylenol Constipation noted, enema given and Miralax and pt did have a moderate formed BM today. Will discharge today to family care with continuing home medications. Daily Miralax for regular BM Diagnosis: Stroke: No - Discharge Data Discharge Date: 11/14/18 Discharge Disposition: Home, Self-Care 01 Condition: Good - Referral to Home Health Date of Face to Face Encounter: 11/14/18 (No acute changes, parkinsons and s/p left hip surgery) Primary Care Physician: PCP None - Discharge Diagnosis/Problem(s) (1) Abdominal pain SNOMED Code(s): 43078257 ICD Code: R10.9 - UNSPECIFIED ABDOMINAL PAIN Status: Acute Current Visit : Yes (2) Constipation SNOMED Code(s): 31494894 ICD Code: K59.00 - CONSTIPATION, UNSPECIFIED Status: Acute Current Visit : Yes (3) Left hip pain SNOMED Code(s): 58773870 ICD Code: M25.552 - PAIN IN LEFT HIP Status: Acute Current Visit: Yes - Patient Instructions Diet: Mechanical Soft Activity: Partial Weight Bearing Notify Provider of: Increased Pain, Nausea and/or Vomiting - Discharge Plan *PRESCRIPTION DRUG MONITORING PROGRAM REVIEWED*: Not Applicable *COPY OF PRESCRIPTION DRUG MONITORING REPORT IN PATIENT WARREN: Not Applicable Home Medications: Home Meds Allopurinol [Zyloprim] 100 mg PO DAILY PRN 11/29/12 [History] Atenolol 25 mg PO DAILY 11/29/12 [History] Carbidopa/Levodopa [Carbidopa-Levodopa 25-250] 1 each PO Q2HR 11/29/12 [History] Carbidopa/Levodopa [Sinemet CR 50-200] 1 each PO BEDTIME 11/29/12 [History] Losartan [Cozaar] 50 mg PO DAILY 11/29/12 [History] Omeprazole 20 mg PO DAILY 11/29/12 [History] amLODIPine Besylate [Norvasc] 10 mg PO DAILY 11/29/12 [History] hydroCHLOROthiazide [Hydrochlorothiazide] 12.5 mg PO DAILY 11/29/12 [History] Acetaminophen [Acetaminophen Extra Strength] 1,000 mg PO Q6HR PRN 11/12/18 [ History] Aspirin [Halfprin] 81 mg PO DAILY 11/12/18 [History] Gabapentin [Neurontin] 100 mg PO BID 11/12/18 [History] Latanoprost/Pf [Latanoprost 0.005% Eye Drop] 7.5 ml EYELF BEDTIME 11/12/18 [ History] Melatonin 3 mg PO BEDTIME PRN 11/12/18 [History] Polyethylene Glycol 3350 [MiraLAX] 17 gm PO DAILY PRN 11/12/18 [History] traMADol [Ultram] 50 mg PO QID PRN 11/12/18 [History] Non-Formulary Medication [NF Drug] 1 each PO Q2HR each 11/14/18 [Rx] Patient Handouts: Constipation, Adult, [id number] Forms: ED Department Discharge Referrals: PCP,Unknown [Ordering Only Provider] - - Discharge Summary/Plan Comment DC Time >30 min.: No (No change in cares, Tramadol and Tylenol prn) Discharge Summary/Plan Comment: Discharge to home to care of family. Assist needed to get pt into home. Tramadol and Tylenol prn for relief of pain. Miralax daily to prevent constipation. May hold prn if diarrhea. F/U in clinic is prn. - General Info Date of Service: 11/14/18 Admission Dx/Problem (Free Text: left hip pain, abdominal pain and constipation Subjective Update: Pt is nonverbal. He is alert and moving arms well today and responding to nurse. RN reports pt had moderate stool today and pain has been controlled. Symptoms as noted per staff. Functional Status: Reports: Pain Controlled, Tolerating Diet, Urinating - Review of Systems General: Reports: No Symptoms. Denies: Fever Gastrointestinal: Reports: Other (constipation resolved). Denies: Vomiting Genitourinary: Reports: Other (voided on toilet today, wears attends) - Patient Data Vitals - Most Recent: Last Vital Signs Temp 98.1 F 11/14/18 11:19 Pulse 72 11/14/18 11:19 Resp 20 11/14/18 11:19 BP 146/63 H 11/14/18 11:19 Pulse Ox 97 11/14/18 11:19 Weight - Most Recent: 168 lb 9 oz Lab Results - Last 24 hrs: Laboratory Results - last 24 hr 11/14/18 Range/Units 12:25 WBC 11.5 H D (4.0-11.0) K/uL RBC 3.58 L (4.50-6.50) M/uL Hgb 11.7 L (13.0-18.0) g/dL Hct 35.2 L (40.0-54.0) % MCV 98 H (76-96) fL MCH 32.7 H (27.0-32.0) pg MCHC 33.2 (31.0-35.0) g/dL RDW 14.0 (11.0-16.0) % Plt Count 370 D (150-400) K/uL MPV 9.1 (6.0-10.0) fL Neut % (Auto) 76.6 H (45.0-70.0) % Lymph % (Auto) 11.9 L (20.0-40.0) % [place] % (Auto) 10.5 H (3.0-10.0) % Eos % (Auto) 0.7 L (1.0-5.0) % Baso % (Auto) 0.3 (0.0-0.5) % Neut # (Auto) 8.83 H (2.00-7.50) K/uL Lymph # (Auto) 1.37 L (1.50-4.00) K/uL [place] # (Auto) 1.21 H (0.20-0.80) K/uL Eos # (Auto) 0.08 (0.04-0.40) K/uL Baso # (Auto) 0.03 (0.02-0.10) K/uL ALIX Results - Last 24 hrs: Microbiology 11/12/18 09:10 Aerobic Blood Culture - Preliminary Blood NO GROWTH AFTER 2 DAYS Anaerobic Blood Culture - Preliminary NO GROWTH AFTER 2 DAYS Med Orders - Current: Current Medications Acetaminophen (Tylenol Extra Strength) 1,000 mg PO Q6H PRN PRN Reason: PAIN Last Admin: 11/13/18 22:44 Dose: 1,000 mg Aspirin (Halfprin) 81 mg PO DAILY [facility] Last Admin: 11/14/18 08:01 Dose: 81 mg (Amlodipine Besylate [Norvasc] 10 Mg)*Pt Own Med* 10 mg PO DAILY [facility] Last Admin: 11/14/18 08:00 Dose: 10 mg (Carbidopa/Levodopa [Sinemet Cr 50-200] 1 Each)*Pt Own Med* 1 each PO BEDTIME [facility] Last Admin: 11/13/18 20:27 Dose: 1 each (Gabapentin [ Neurontin] 100 Mg)* Pt Own Med* 100 mg PO BID [facility] Last Admin: 11/14/18 08:02 Dose: 100 mg Non-Formulary Medication (Latanoprost/Pf [Latanoprost 0.005% Eye Drop]) 7.5 ml EYELF BEDTIME [facility] Last Admin: 11/13/18 20:27 Dose: Not Given Non-Formulary Medication (Melatonin [Melatonin]) 3 mg PO BEDTIME PRN PRN Reason: Sleep (Omeprazole [ Omeprazole] 20 Mg)* Pt Own Med* 20 mg PO DAILY [facility] Last Admin: 11/14/18 08:02 Dose: 20 mg (Tramadol [Ultram] (50 Mg)*Pt Own Med*) 50 mg PO QID PRN PRN Reason: Pain Last Admin: 11/14/18 11:00 Dose: 50 mg (Atenolol [Atenolol] 50 Mg Tab)*Pt Own Med* 0 mg PO DAILY [facility] Last Admin: 11/14/18 08:02 Dose: 25 mg (Hydrochlorothiazide [ Hydrochlorothiazide] 25 Mg Tab)*Pt Own Med* 0 mg PO DAILY [facility] Last Admin: 11/14/18 08:03 Dose: 12.5 mg (Losartan [Cozaar] 100 Mg Tab)*Pt Own Med* 0 mg PO DAILY [facility] Last Admin: 11/14/18 08:03 Dose: 50 mg Carbidopa 25mg/Levodopa 250mg Tablet*Pt Own Med* 1 each PO Q2HR [facility] Last Admin: 11/14/18 12:15 Dose: 1 each Polyethylene Glycol (Miralax) 17 gm PO DAILY PRN PRN Reason: Constipation Last Admin: 11/14/18 10:18 Dose: 17 gm Discontinued Medications Acetaminophen (Tylenol) Confirm Administered Dose 650 mg .ROUTE .STK-MED ONE Stop: 11/13/18 03:52 Last Admin: 11/13/18 04:05 Dose: Not Given Acetaminophen (Tylenol Extra Strength) Confirm Administered Dose 1,000 mg .ROUTE .STK-MED ONE Stop: 11/13/18 04:09 Last Admin: 11/13/18 07:13 Dose: Not Given Carbidopa/Levodopa (Sinemet 25-100 Mg) 1 tab PO Q2HR [facility] Last Admin: 11/13/18 23:05 Dose: Not Given Non-Formulary Medication (Acetaminophen [Acetaminophen Extra Strength]) 1,000 mg PO Q6HR PRN PRN Reason: Pain Last Admin: 11/13/18 04:09 Dose: 1,000 mg Non-Formulary Medication (Aspirin [Halfprin]) 81 mg PO DAILY [facility] Last Admin: 11/12/18 10:55 Dose: Not Given Non-Formulary Medication (Atenolol [Atenolol]) 25 mg PO DAILY [facility] Last Admin: 11/12/18 10:56 Dose: Not Given Non-Formulary Medication (Hydrochlorothiazide [Hydrochlorothiazide]) 12.5 mg PO DAILY [facility] Non-Formulary Medication (Losartan [Cozaar]) 50 mg PO DAILY [facility] Last Admin: 11/12/18 10:56 Dose: Not Given Non-Formulary Medication (Polyethylene Glycol 3350 [Miralax]) 17 gm PO DAILY PRN PRN Reason: Constipation Carbidopa 25mg/Levodopa 250mg Tablet*Pt Own Med* 1 each PO Q2H [facility] Last Admin: 11/13/18 06:17 Dose: 1 each Carbidopa 25mg/Levodopa 250mg Tablet*Pt Own Med* 1 each PO ASDIRECTED [facility] Polyethylene Glycol (Miralax) Confirm Administered Dose 17 gm .ROUTE .STK-MED ONE Stop: 11/12/18 14:45 Last Admin: 11/12/18 14:51 Dose: 17 gm Sodium Biphosphate/Sodium Phosphate (Fleet Enema) 133 ml RECTAL ONETIME ONE Stop: 11/12/18 09:15 Last Admin: 11/12/18 09:50 Dose: 133 ml Tramadol HCl (Ultram) Confirm Administered Dose 50 mg .ROUTE .STK-MED ONE Stop: 11/12/18 11:03 Last Admin: 11/12/18 11:18 Dose: Not Given - Exam Quality Assessment: Denies: Supplemental Oxygen, Urine Catheter General: Reports: Alert, Cooperative, No Acute Distress HEENT: Reports: Pupils Equal, Mucous Membr. Moist/[place] Neck: Reports: Supple, Trachea Midline Lungs: Reports: Clear to Auscultation, Normal Respiratory Effort. Denies: Crackles, Wheezing Cardiovascular: Reports: Regular Rate, Regular Rhythm GI/Abdominal Exam: Normal Bowel Sounds, Soft, No Distention Extremities: No Pedal Edema, Normal Capillary Refill Skin: Reports: Warm, Dry Wound/Incisions: Reports: Healing Well (left dixon wound is dry and healing well. Allevy dressing to area and change daily) Neurological: Reports: No New Focal Deficit
== END 2018-11-14 13:26 | disposition home or self-care (01) ==
LOC: LB.ED 06:47 → LB.MS 09:12
PROVIDERS: ADMIT Nurse Practitioner Family; ATTEND Nurse Practitioner Family
DX: R10.9 Unspecified abdominal pain (principal); M25.552 Pain in left hip; K59.00 Constipation, unspecified; I10 Essential (primary) hypertension; G20 Parkinson's disease; M12.9 Arthropathy, unspecified; D72.829 Elevated white blood cell count, unspecified; Z88.6 Allergy status to analgesic agent; Z88.8 Allergy status to other drugs, medicaments and biological substances; Z88.5 Allergy status to narcotic agent; Z79.899 Other long term (current) drug therapy; Z96.642 Presence of left artificial hip joint
CPT/HCPCS: 36415; 73502-LT; 74018; 80048; 81003; 83605; 85025; 87040; 99284-25; A0425; A0429; A9270-GY; G0378

== ENCOUNTER → 2019-01-01 | Outpatient (CLI) | payer OTHER, MEDICARE ==
[~2019-01-01] MED LIST: cefTRIAXone 1 GM Vial IM ONE
[2019-01-01 18:11] VITALS: BP 134/59; PULSE 84
== END | disposition home or self-care (01) ==
LOC: LB.ACU 16:44
PROVIDERS: ATTEND Nurse Practitioner Family
DX: L97.921 Non-pressure chronic ulcer of unspecified part of left lower leg limited to breakdown of skin (principal)
CPT/HCPCS: 96372; J0696

== ENCOUNTER → 2019-01-02 | Outpatient (CLI) | payer OTHER, MEDICARE ==
[2019-01-02 16:43] VITALS: BP 129/58; PULSE 64
== END ==
LOC: LB.ACU 15:07
PROVIDERS: ATTEND Nurse Practitioner Family
DX: L97.921 Non-pressure chronic ulcer of unspecified part of left lower leg limited to breakdown of skin (principal)
CPT/HCPCS: 96372; J0696

== ENCOUNTER 2019-01-03 14:43 | Outpatient (CLI) | payer OTHER, MEDICARE ==
[2019-01-03] MEDS ORDERED: cefTRIAXone 1 GM Vial IM ONE (14:51)
[2019-01-03 19:46] VITALS: BP 118/51; PULSE 62
== END 2019-01-03 15:06 | disposition home or self-care (01) ==
LOC: LB.ACU 14:43
PROVIDERS: ATTEND Nurse Practitioner Family
DX: L97.921 Non-pressure chronic ulcer of unspecified part of left lower leg limited to breakdown of skin (principal)
CPT/HCPCS: 96372; J0696

== ENCOUNTER 2019-01-04 16:19 | Outpatient (CLI) | payer OTHER, MEDICARE ==
[2019-01-04] MEDS ORDERED: cefTRIAXone 1 GM Vial IM ONE (16:24)
[2019-01-04 16:47] VITALS: BP 160/66; PULSE 74
== END 2019-01-04 16:37 | disposition home or self-care (01) ==
LOC: LB.ACU 16:19
PROVIDERS: ATTEND Nurse Practitioner Family
DX: L97.921 Non-pressure chronic ulcer of unspecified part of left lower leg limited to breakdown of skin (principal)
CPT/HCPCS: 96372; J0696

== ENCOUNTER 2019-08-24 10:55 | Emergency (ER) | payer MEDICARE, OTHER | END 2019-08-24 11:10 | disposition other institution (70) | LOC: LB.ED 10:55 | DX: Z53.21 Procedure and treatment not carried out due to patient leaving prior to being seen by health care provider (principal) ==

== ENCOUNTER 2019-09-20 13:57 | Inpatient (IN) | payer MEDICARE, OTHER ==
[2019-09-20] MEDS ORDERED: Sodium Chloride 0.9% 10 ML Syringe FLUSH PRN (14:17)
[2019-09-20] MEDS ORDERED: Sodium Chloride 0.9% 1,000 ML IV ONE (14:19)
[2019-09-20] MEDS ORDERED: cefTRIAXone 1 GM in Sodium Chloride 0.9% 50 ML IV ONE (14:50)
--- NOTE | 2019-09-20 14:52 | CT ---
DATE OF SERVICE: 09/20/2019. CLINICAL DATA: Pain AP chest: Comparison is made to a prior exam dated 13 October 2018. There is breathing motion artifact. Heart size is normal. There is calcification of the aortic arch. There is increased density in the lower right lung base consistent with basilar atelectasis or infiltrate. There is also poorly defined infiltrates in the left perihilar region and left lower lobe. Pneumonia should be considered. There is mild soft tissue fullness in the region of the left hilum. This may be a prominent pulmonary artery. I cannot completely exclude a mass or adenopathy. No other significant findings. No pneumothorax. No pleural effusions. No displaced fractures. MTDD
[2019-09-20] MEDS ORDERED: cefTRIAXone 1 GM Vial ONE (15:00)
[2019-09-20] MEDS ORDERED: Sodium Chloride 0.9% 1,000 ML IV SCH (15:15)
--- NOTE | 2019-09-20 16:15 | EDM.PDOC ---
ED HPI GENERAL MEDICAL PROBLEM - General Chief Complaint: General Stated Complaint: FALL AT HOME 08/31/19 PAIN Time Seen by Provider: 09/20/19 14:45 - History of Present Illness Location: Reports: Chest - Related Data Allergies Allergy/AdvReac Type Severity Reaction Status Date / Time ibuprofen Allergy Nausea and Verified 09/20/19 14:29 Vomiting lisinopril Allergy Cough Verified 09/20/19 14:29 morphine Allergy Respiratory Verified 09/20/19 14:29 Depression naproxen Allergy Nausea and Verified 09/20/19 14:29 Vomiting oxycodone [Oxycodone] Allergy Respiratory Verified 09/20/19 14:29 Depression Home Meds: Home Meds Carbidopa/Levodopa [Carbidopa-Levodopa 25-250] 1 each PO Q2HR 11/29/12 [History] Carbidopa/Levodopa [Sinemet CR 50-200] 1 each PO BEDTIME 11/29/12 [History] Losartan [Cozaar] 50 mg PO DAILY 11/29/12 [History] Omeprazole 20 mg PO DAILY 11/29/12 [History] allopurinoL [Zyloprim] 100 mg PO DAILY PRN 11/29/12 [History] amLODIPine Besylate [Norvasc] 10 mg PO DAILY 11/29/12 [History] atenoloL [Atenolol] 25 mg PO DAILY 11/29/12 [History] hydroCHLOROthiazide [Hydrochlorothiazide] 12.5 mg PO DAILY 11/29/12 [History] Acetaminophen [Acetaminophen Extra Strength] 1,000 mg PO Q6HR PRN 11/12/18 [History] Aspirin [Halfprin] 81 mg PO DAILY 11/12/18 [History] Gabapentin [Neurontin] 100 mg PO BID 11/12/18 [History] Latanoprost/Pf [Latanoprost 0.005% Eye Drop] 7.5 ml EYELF BEDTIME 11/12/18 [History] Melatonin 3 mg PO BEDTIME PRN 11/12/18 [History] polyethylene glycoL 3350 [MiraLAX] 17 gm PO DAILY PRN 11/12/18 [History] traMADol [Ultram] 50 mg PO QID PRN 11/12/18 [History] Past Medical History HEENT History: Reports: Other (See Below) 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 ED EXAM, SEPSIS - Physical Exam Exam: See Below Exam Limited By: Altered Mental Status General Appearance: Obtunded Head: Atraumatic, Normocephalic Neck: Normal Inspection Respiratory/Chest: Decreased Breath Sounds, Crackles, Rales Cardiovascular: Normal Peripheral Pulses GI/Abdominal Exam: Normal Bowel Sounds (Male) Exam: Normal Inspection Back: Normal Inspection Extremities: Normal Inspection Neurological: Slow to Respond (Pt presented with weakness, non-communitive (Parkinson's hx) hypotensive, tachypneic O2 sat 84% on RA. After two liters of fluids given he had a remarkable improvement in VS and mentation. Will admit to the floor.) Course - Vital Signs Last Recorded V/S: Last Vital Signs Temp 97 F 09/21/19 06:00 Pulse 63 09/21/19 06:00 Resp 18 09/21/19 06:00 BP 107/67 09/21/19 06:00 Pulse Ox 96 09/21/19 06:00 - Orders/Labs/Meds Orders: Active Orders 24 hr Category Date Time Status EKG Documentation Completion [RC] ASDIRECTED Care 09/20/19 14:19 Active CULTURE BLOOD [BC] Stat Lab 09/20/19 14:58 Received CULTURE BLOOD [BC] Stat Lab 09/20/19 15:30 Received CULTURE URINE [RM] Stat Lab 09/20/19 15:00 Received Sodium Chloride 0.9% [Saline Flush] Med 09/20/19 14:17 Active 10 ml FLUSH ASDIRECTED PRN Peripheral IV Insertion Adult [OM.PC] Routine Oth 09/20/19 14:17 Ordered Medication Orders Acetaminophen (Tylenol) 650 mg PO Q4H PRN PRN Reason: Pain (Mild 1-3)/fever Albuterol/Ipratropium (Duoneb 3.0-0.5 Mg/3 Ml) 3 ml NEB Q4H PRN PRN Reason: sob Allopurinol (Zyloprim) 100 mg PO DAILY PRN PRN Reason: pain Aspirin (Halfprin) 81 mg PO DAILY [facility] Last Admin: 09/21/19 08:29 Dose: 81 mg Documented by: JOYCE Carbidopa/Levodopa (Sinemet Cr 50-200 Mg) 1 tab PO DAILY@2200 [facility] Last Admin: 09/20/19 22:57 Dose: 1 tab Documented by: ZONIA Ceftriaxone Sodium 1 gm/ (Sodium Chloride) 50 mls @ 100 mls/hr IV Q24H [facility] Azithromycin 250 mg/ Sodium (Chloride) 250 mls @ 250 mls/hr IV Q24H [facility] Dextrose/Sodium Chloride (Dextrose 5%-1/2 Ns) 1,000 mls @ 75 mls/hr IV ASDIRECTED [facility] Latanoprost (Xalatan 0.005% Ophth Soln) 0 ml EYELF BEDTIME [facility] Last Admin: 09/20/19 23:11 Dose: Not Given Documented by: ZONIA [Carbidopa-Levodopa (25-250] *Pt Own Med*) 1 each PO Q2HR [facility] Last Admin: 09/21/19 08:29 Dose: 1 each Documented by: Admin: 09/21/19 06:18 Dose: 1 each Documented by: Admin: 09/20/19 22:57 Dose: 1 each Documented by: Admin: 09/20/19 20:55 Dose: 1 each Documented by: ZONIA Omeprazole (Omeprazole) 20 mg PO ACBREAKFAST [facility] Last Admin: 09/21/19 06:20 Dose: 20 mg Documented by: ZONIA Polyethylene Glycol (Miralax) 17 gm PO DAILY PRN PRN Reason: Constipation Sodium Chloride (Saline Flush) 10 ml FLUSH ASDIRECTED PRN PRN Reason: Keep Vein Open Labs: Laboratory Tests 09/20/19 09/20/19 09/20/19 Range/Units 14:17 14:17 15:26 WBC 14.1 H D (4.0-11.0) K/uL RBC 3.03 L (4.50-6.50) M/uL Hgb 10.3 L (13.0-18.0) g/dL Hct 30.6 L (40.0-54.0) % MCV 101 H (76-96) fL MCH 34.0 H (27.0-32.0) pg MCHC 33.7 (31.0-35.0) g/dL RDW 13.5 (11.0-16.0) % Plt Count 368 (150-400) K/uL MPV 9.6 (6.0-10.0) fL Neut % (Auto) 87.8 H (45.0-70.0) % Lymph % (Auto) 2.6 L (20.0-40.0) % [place] % (Auto) 9.6 (3.0-10.0) % Eos % (Auto) 0.0 L (1.0-5.0) % Baso % (Auto) 0.0 (0.0-0.5) % Neut # (Auto) 12.34 H (2.00-7.50) K/uL Lymph # (Auto) 0.37 L (1.50-4.00) K/uL [place] # (Auto) 1.35 H (0.20-0.80) K/uL Eos # (Auto) 0.00 L (0.04-0.40) K/uL Baso # (Auto) 0.00 L (0.02-0.10) K/uL Sodium 140 (136-145) mmol/L Potassium 4.6 (3.5-5.1) mmol/L Chloride 104 (98-107) mmol/L Carbon Dioxide 19.5 L D (21.0-32.0) mmol/L Anion Gap 21.1 H (5.0-15.0) mmol/L BUN 61 H* D (8-26) mg/dL Creatinine 2.47 H D (0.70-1.30) mg/dL Est Cr Clr Drug Dosing TNP Estimated GFR (MDRD) 25 L (>60) MLS/MIN BUN/Creatinine Ratio 24.7 (6-25) Glucose 115 H (74-100) mg/dL Lactic Acid (0.4-2.0) mmol/L Calcium 8.9 (8.5-10.1) mg/dL Total Bilirubin 0.8 (0.0-1.0) mg/dL AST 18 (15-37) U/L ALT 10 L (12-78) U/L Alkaline Phosphatase 88 (46-116) U/L Total Protein 6.9 (6.4-8.2) g/dL Albumin 2.7 L (3.4-5.0) g/dL Globulin 4.2 (2.2-4.2) g/dL Albumin/Globulin Ratio 0.6 L (0.8-2.0) Urine Color Yellow Urine Appearance Cloudy (CLEAR) Urine pH 5.0 (5.0-8.0) Ur Specific [place] 1.020 (1.003-1.030) Urine Protein Negative (NEGATIVE) mg/dL Urine Glucose (UA) Negative (NEGATIVE) mg/dL Urine Ketones Trace H (NEGATIVE) mg/dL Urine Occult Blood Negative (NEGATIVE) Urine Nitrite Negative (NEGATIVE) Urine Bilirubin Negative (NEGATIVE) Urine Urobilinogen 0.2 (0.2-1.0) E.U./dL Ur Leukocyte Esterase Negative (NEGATIVE) COVID-19 (ETHAN) 09/20/19 09/20/19 Range/Units 15:30 15:35 WBC (4.0-11.0) K/uL RBC (4.50-6.50) M/uL Hgb (13.0-18.0) g/dL Hct (40.0-54.0) % MCV (76-96) fL MCH (27.0-32.0) pg MCHC (31.0-35.0) g/dL RDW (11.0-16.0) % Plt Count (150-400) K/uL MPV (6.0-10.0) fL Neut % (Auto) (45.0-70.0) % Lymph % (Auto) (20.0-40.0) % [place] % (Auto) (3.0-10.0) % Eos % (Auto) (1.0-5.0) % Baso % (Auto) (0.0-0.5) % Neut # (Auto) (2.00-7.50) K/uL Lymph # (Auto) (1.50-4.00) K/uL [place] # (Auto) (0.20-0.80) K/uL Eos # (Auto) (0.04-0.40) K/uL Baso # (Auto) (0.02-0.10) K/uL Sodium (136-145) mmol/L Potassium (3.5-5.1) mmol/L Chloride (98-107) mmol/L Carbon Dioxide (21.0-32.0) mmol/L Anion Gap (5.0-15.0) mmol/L BUN (8-26) mg/dL Creatinine (0.70-1.30) mg/dL Est Cr Clr Drug Dosing Estimated GFR (MDRD) (>60) MLS/MIN BUN/Creatinine Ratio (6-25) Glucose (74-100) mg/dL Lactic Acid 1.8 (0.4-2.0) mmol/L Calcium (8.5-10.1) mg/dL Total Bilirubin (0.0-1.0) mg/dL AST (15-37) U/L ALT (12-78) U/L Alkaline Phosphatase (46-116) U/L Total Protein (6.4-8.2) g/dL Albumin (3.4-5.0) g/dL Globulin (2.2-4.2) g/dL Albumin/Globulin Ratio (0.8-2.0) Urine Color Urine Appearance (CLEAR) Urine pH (5.0-8.0) Ur Specific [place] (1.003-1.030) Urine Protein (NEGATIVE) mg/dL Urine Glucose (UA) (NEGATIVE) mg/dL Urine Ketones (NEGATIVE) mg/dL Urine Occult Blood (NEGATIVE) Urine Nitrite (NEGATIVE) Urine Bilirubin (NEGATIVE) Urine Urobilinogen (0.2-1.0) E.U./dL Ur Leukocyte Esterase (NEGATIVE) COVID-19 (ETHAN) Negative Meds: Medications Generic Name Dose Route Start Last Admin Trade Name Freq PRN Reason Stop Dose Admin Acetaminophen 650 mg 09/20/19 18:51 Tylenol PO Q4H PRN Pain (Mild 1-3)/fever Albuterol/Ipratropium 3 ml 09/20/19 18:57 Duoneb 3.0-0.5 Mg/3 Ml NEB Q4H PRN sob Allopurinol 100 mg 09/20/19 19:00 Zyloprim PO DAILY PRN pain Aspirin 81 mg 09/21/19 08:00 09/21/19 08:29 Halfprin PO 81 mg DAILY [facility] Administration Carbidopa/Levodopa 1 tab 09/20/19 22:00 09/20/19 22:57 Sinemet Cr 50-200 Mg PO 1 tab DAILY@2200 [facility] Administration Ceftriaxone Sodium 1 gm/ 50 mls @ 100 mls/hr 09/21/19 15:00 Sodium Chloride IV Q24H [facility] Azithromycin 250 mg/ Sodium 250 mls @ 250 mls/hr 09/21/19 18:00 Chloride IV Q24H [facility] Dextrose/Sodium Chloride 1,000 mls @ 75 mls/hr 09/21/19 08:45 Dextrose 5%-1/2 Ns IV ASDIRECTED [facility] Latanoprost 0 ml 09/20/19 20:00 09/20/19 23:11 Xalatan 0.005% Ophth Soln EYELF Not Given BEDTIME [facility] [Carbidopa-Levodopa 1 each 09/20/19 20:00 09/21/19 08:29 25-250] *Pt Own Med* PO 1 each Q2HR [facility] Administration Omeprazole 20 mg 09/21/19 07:00 09/21/19 06:20 Omeprazole PO 20 mg ACBREAKFAST [facility] Administration Polyethylene Glycol 17 gm 09/20/19 19:00 Miralax PO DAILY PRN Constipation Sodium Chloride 10 ml 09/20/19 14:17 Saline Flush FLUSH ASDIRECTED PRN Keep Vein Open Discontinued Medications Generic Name Dose Route Start Last Admin Trade Name Freq PRN Reason Stop Dose Admin Carbidopa/Levodopa 1 tab 09/20/19 20:00 Sinemet Cr 50-200 Mg PO BEDTIME [facility] Ceftriaxone Sodium Confirm 09/20/19 15:00 09/20/19 14:54 Rocephin Administered 09/20/19 15:01 Not Given Dose 1 gm .ROUTE .STK-MED ONE Gabapentin 100 mg 09/20/19 20:00 Neurontin PO BID MRITA Sodium Chloride 1,000 mls @ 999 mls/hr 09/20/19 14:19 09/20/19 14:20 Normal Saline IV 09/20/19 15:19 999 mls/hr .BOLUS ONE Administration Ceftriaxone Sodium 1 gm/ 50 mls @ 100 mls/hr 09/20/19 14:50 09/20/19 15:15 Sodium Chloride IV 09/20/19 15:19 100 mls/hr ONETIME ONE Administration Sodium Chloride 1,000 mls @ 75 mls/hr 09/20/19 15:15 09/20/19 15:24 Normal Saline IV 999 mls/hr ASDIRECTED [facility] Administration Azithromycin 500 mg/ Sodium 250 mls @ 250 mls/hr 09/20/19 18:08 09/20/19 18:25 Chloride IV 09/20/19 19:07 250 mls/hr ONETIME ONE Administration Departure - Departure Time of Disposition: 16:30 Disposition: Admitted As Inpatient 64 Clinical Impression: Pneumonia - Discharge Information Sepsis Event Note (ED) - Evaluation Sepsis Screening Result: No Definite Risk - My Orders Last 24 Hours: My Active Orders 09/20/19 14:17 Sodium Chloride 0.9% [Saline Flush] 10 ml FLUSH ASDIRECTED PRN Peripheral IV Insertion Adult [OM.PC] Routine 09/20/19 14:19 EKG Documentation Completion [RC] ASDIRECTED 09/20/19 14:58 CULTURE BLOOD [BC] Stat 09/20/19 15:00 CULTURE URINE [RM] Stat 09/20/19 15:30 CULTURE BLOOD [BC] Stat - Assessment/Plan Last 24 Hours: My Active Orders 09/20/19 14:17 Sodium Chloride 0.9% [Saline Flush] 10 ml FLUSH ASDIRECTED PRN Peripheral IV Insertion Adult [OM.PC] Routine 09/20/19 14:19 EKG Documentation Completion [RC] ASDIRECTED 09/20/19 14:58 CULTURE BLOOD [BC] Stat 09/20/19 15:00 CULTURE URINE [RM] Stat 09/20/19 15:30 CULTURE BLOOD [BC] Stat
[2019-09-20] MEDS ORDERED: Azithromycin 500 MG in Sodium Chloride 0.9% 250 ML IV ONE (18:08)
[2019-09-20] MEDS ORDERED: Acetaminophen 325 MG Tab PO PRN (18:51)
--- NOTE | 2019-09-20 18:51 | PCM.PN ---
- General Info Date of Service: 09/20/19 - Patient Data Vitals - Most Recent: Last Vital Signs Temp 36.2 C 09/20/19 17:45 Pulse 64 09/20/19 17:45 Resp 20 09/20/19 17:45 BP 119/42 L 09/20/19 17:45 Pulse Ox 92 L 09/20/19 17:45 Weight - Most Recent: 63.82 kg Lab Results Last 24 Hours: Laboratory Results - last 24 hr 09/20/19 09/20/19 09/20/19 Range/Units 14:17 14:17 15:26 WBC 14.1 H D (4.0-11.0) K/uL RBC 3.03 L (4.50-6.50) M/uL Hgb 10.3 L (13.0-18.0) g/dL Hct 30.6 L (40.0-54.0) % MCV 101 H (76-96) fL MCH 34.0 H (27.0-32.0) pg MCHC 33.7 (31.0-35.0) g/dL RDW 13.5 (11.0-16.0) % Plt Count 368 (150-400) K/uL MPV 9.6 (6.0-10.0) fL Neut % (Auto) 87.8 H (45.0-70.0) % Lymph % (Auto) 2.6 L (20.0-40.0) % [place] % (Auto) 9.6 (3.0-10.0) % Eos % (Auto) 0.0 L (1.0-5.0) % Baso % (Auto) 0.0 (0.0-0.5) % Neut # (Auto) 12.34 H (2.00-7.50) K/uL Lymph # (Auto) 0.37 L (1.50-4.00) K/uL [place] # (Auto) 1.35 H (0.20-0.80) K/uL Eos # (Auto) 0.00 L (0.04-0.40) K/uL Baso # (Auto) 0.00 L (0.02-0.10) K/uL Sodium 140 (136-145) mmol/L Potassium 4.6 (3.5-5.1) mmol/L Chloride 104 (98-107) mmol/L Carbon Dioxide 19.5 L D (21.0-32.0) mmol/L Anion Gap 21.1 H (5.0-15.0) mmol/L BUN 61 H* D (8-26) mg/dL Creatinine 2.47 H D (0.70-1.30) mg/dL Est Cr Clr Drug Dosing TNP Estimated GFR (MDRD) 25 L (>60) MLS/MIN BUN/Creatinine Ratio 24.7 (6-25) Glucose 115 H (74-100) mg/dL Lactic Acid (0.4-2.0) mmol/L Calcium 8.9 (8.5-10.1) mg/dL Total Bilirubin 0.8 (0.0-1.0) mg/dL AST 18 (15-37) U/L ALT 10 L (12-78) U/L Alkaline Phosphatase 88 (46-116) U/L Total Protein 6.9 (6.4-8.2) g/dL Albumin 2.7 L (3.4-5.0) g/dL Globulin 4.2 (2.2-4.2) g/dL Albumin/Globulin Ratio 0.6 L (0.8-2.0) Urine Color Yellow Urine Appearance Cloudy (CLEAR) Urine pH 5.0 (5.0-8.0) Ur Specific [place] 1.020 (1.003-1.030) Urine Protein Negative (NEGATIVE) mg/dL Urine Glucose (UA) Negative (NEGATIVE) mg/dL Urine Ketones Trace H (NEGATIVE) mg/dL Urine Occult Blood Negative (NEGATIVE) Urine Nitrite Negative (NEGATIVE) Urine Bilirubin Negative (NEGATIVE) Urine Urobilinogen 0.2 (0.2-1.0) E.U./dL Ur Leukocyte Esterase Negative (NEGATIVE) COVID-19 (ETHAN) 09/20/19 09/20/19 Range/Units 15:30 15:35 WBC (4.0-11.0) K/uL RBC (4.50-6.50) M/uL Hgb (13.0-18.0) g/dL Hct (40.0-54.0) % MCV (76-96) fL MCH (27.0-32.0) pg MCHC (31.0-35.0) g/dL RDW (11.0-16.0) % Plt Count (150-400) K/uL MPV (6.0-10.0) fL Neut % (Auto) (45.0-70.0) % Lymph % (Auto) (20.0-40.0) % [place] % (Auto) (3.0-10.0) % Eos % (Auto) (1.0-5.0) % Baso % (Auto) (0.0-0.5) % Neut # (Auto) (2.00-7.50) K/uL Lymph # (Auto) (1.50-4.00) K/uL [place] # (Auto) (0.20-0.80) K/uL Eos # (Auto) (0.04-0.40) K/uL Baso # (Auto) (0.02-0.10) K/uL Sodium (136-145) mmol/L Potassium (3.5-5.1) mmol/L Chloride (98-107) mmol/L Carbon Dioxide (21.0-32.0) mmol/L Anion Gap (5.0-15.0) mmol/L BUN (8-26) mg/dL Creatinine (0.70-1.30) mg/dL Est Cr Clr Drug Dosing Estimated GFR (MDRD) (>60) MLS/MIN BUN/Creatinine Ratio (6-25) Glucose (74-100) mg/dL Lactic Acid 1.8 (0.4-2.0) mmol/L Calcium (8.5-10.1) mg/dL Total Bilirubin (0.0-1.0) mg/dL AST (15-37) U/L ALT (12-78) U/L Alkaline Phosphatase (46-116) U/L Total Protein (6.4-8.2) g/dL Albumin (3.4-5.0) g/dL Globulin (2.2-4.2) g/dL Albumin/Globulin Ratio (0.8-2.0) Urine Color Urine Appearance (CLEAR) Urine pH (5.0-8.0) Ur Specific [place] (1.003-1.030) Urine Protein (NEGATIVE) mg/dL Urine Glucose (UA) (NEGATIVE) mg/dL Urine Ketones (NEGATIVE) mg/dL Urine Occult Blood (NEGATIVE) Urine Nitrite (NEGATIVE) Urine Bilirubin (NEGATIVE) Urine Urobilinogen (0.2-1.0) E.U./dL Ur Leukocyte Esterase (NEGATIVE) COVID-19 (ETHAN) Negative Med Orders - Current: Current Medications Sodium Chloride (Normal Saline) 1,000 mls @ 999 mls/hr IV ASDIRECTED [facility]IRTA Last Admin: 09/20/19 15:24 Dose: 999 mls/hr Documented by: Azithromycin 500 mg/ Sodium (Chloride) 250 mls @ 250 mls/hr IV ONETIME ONE Stop: 09/20/19 19:07 Last Admin: 09/20/19 18:25 Dose: 250 mls/hr Documented by: Sodium Chloride (Saline Flush) 10 ml FLUSH ASDIRECTED PRN PRN Reason: Keep Vein Open Discontinued Medications Ceftriaxone Sodium (Rocephin) Confirm Administered Dose 1 gm .ROUTE .STK-MED ONE Stop: 09/20/19 15:01 Last Admin: 09/20/19 14:54 Dose: Not Given Documented by: Sodium Chloride (Normal Saline) 1,000 mls @ 999 mls/hr IV .BOLUS ONE Stop: 09/20/19 15:19 Last Admin: 09/20/19 14:20 Dose: 999 mls/hr Documented by: Ceftriaxone Sodium 1 gm/ (Sodium Chloride) 50 mls @ 100 mls/hr IV ONETIME ONE Stop: 09/20/19 15:19 Last Admin: 09/20/19 15:15 Dose: 100 mls/hr Documented by: Sepsis Event Note - Evaluation Sepsis Screening Result: Severe Sepsis Risk - Focused Exam Vital Signs: Vital Signs Temp Pulse Resp BP Pulse Ox 09/20/19 17:45 36.2 C 64 20 119/42 L 92 L 09/20/19 15:52 36.6 C 67 28 H 116/55 L 92 L 09/20/19 15:33 64 28 H 113/51 L 93 L 09/20/19 15:17 36.4 C 64 16 109/50 L 89 L 09/20/19 14:52 65 112/45 L 92 L 09/20/19 14:27 68 18 68/38 L 93 L 09/20/19 13:57 37.0 C 69 18 68/38 L 89 L Date Exam was Performed: 09/20/19 Time Exam was Performed: 19:09 - Problem List Review Problem List Initiated/Reviewed/Updated: Yes - Assessment Assessment:: See plan - Plan Plan:: Ehospitalist collaboration: 84-year-old male admitted to the emergency room for left lower lobe pneumonia, hypotension, dehydration/volume depletion. Patient presented to the ED initially unresponsive, genearlized weakness, let hargy, and hypotension with blood pressure 71/39. Patient has past medical history of Parkinson's, hypertension, chronic pain. He is also nonverbal at baseline. He lives at home with his and his son. He was found to have leukocytosis of 14. Lactic acid was 1.8. Chest x-ray left lower lobe pneumonia. COVID negative. Initial respiratory rate was 28 and he had acute hypoxic respiratory failure with O2 sat 84% on room air. Since receiving 2 L of IV fluid blood pressure is improved to 119/42. Heart rate 69. Respiratory rate 16. O2 sat 95% on 2 L nasal cannula. He has been given 1 g of Rocephin, also is receiving azithromycin. On telemedicine camera evaluation, at this time the controls for stethoscope are not working. But, I was still able to evaluate the patient over camera, no respiratory distress via video view, he was lying in bed, he is nonverbal at baseline. He appeared calm. He was cooperative. He does have a right lower leg dixon wound that has been following with wound care outpatient. We will continue Vaseline and gauze and follow-up with physical therapy wound care tomorrow. No signs of surrounding cellulitis. Abd soft for nursing palpation. Assessment and plan: Hypotension related to pneumonia, volume depletion/dehydration. Responded well to IV fluids and now resolved with blood pressure 119/42, hold his antihypertensive medications tonite, reassess tomorrow. Continue IV fluids normal saline at 75 mL/h. Had decreased mentation on arrival to ED, but is better, now, hold Melatonin and tramadol for now. Held Gabapentin with his renal function, reassess in the am to resume to avoid withdrawal. Community-acquired pneumonia, left lower lobe,acute hypoxic resp failure: Continue Rocephin and Azithromycin. R. leg wound: continue wound care, no signs of cellulitis. Parkinson's: continue home meds. LONA on CKD, baseline cr 1.3, today 2.47, he is making urine. Avoid hypotension or nephrotoxic meds. Monitor uop and repeat renal function in the AM. K was not elevated. Please call E hospitalist with any questions.
[2019-09-20] MEDS ORDERED: Albuterol/Ipratropium 3.0-0.5 MG/3 ML Neb Soln NEB PRN (18:57)
[2019-09-20] MEDS ORDERED: Allopurinol 100 MG Tab PO PRN (19:00)
[2019-09-20] MEDS ORDERED: Polyethylene Glycol 3350 Powder 17 GM Packet PO PRN (19:00)
[2019-09-20] MEDS ORDERED: Gabapentin 100 MG Cap PO SCH (20:00)
[2019-09-20] MEDS ORDERED: Carbidopa/Levodopa 50-200 MG Tab.ER PO SCH (20:00)
[2019-09-20] MEDS: CARBIDOPA LEVODOPA PO SCH ×2 (20:55→22:57)
[2019-09-20] MEDS: Carbidopa/Levodopa 50-200 MG Tab.ER PO SCH (22:57)
[2019-09-20] MEDS: Latanoprost 0.005% Ophth Soln 2.5 ML Bottle EYELF SCH (23:11)
[2019-09-21] MEDS: CARBIDOPA LEVODOPA PO SCH ×9 (06:18→22:44)
[2019-09-21] MEDS: Omeprazole 20 MG Cap.CR PO SCH (06:20)
[2019-09-21] MEDS: Aspirin 81 MG Tab.EC PO SCH (08:29)
[2019-09-21] MEDS ORDERED: Dextrose 5%-0.45% NaCl 1,000 ML IV SCH (08:45)
--- NOTE | 2019-09-21 09:31 | PCM.PN ---
- General Info Date of Service: 09/21/19 - Review of Systems General: Reports: Weakness - Patient Data Vitals - Most Recent: Last Vital Signs Temp 97 F 09/21/19 06:00 Pulse 63 09/21/19 06:00 Resp 18 09/21/19 06:00 BP 107/67 09/21/19 06:00 Pulse Ox 96 09/21/19 06:00 Weight - Most Recent: 140 lb 11.2 oz I&O - Last 24 Hours: Intake & Output 09/20/19 09/21/19 09/21/19 22:59 06:59 14:59 Intake Total 40 Output Total 150 300 Balance -150 -260 Lab Results Last 24 Hours: Laboratory Results - last 24 hr 09/20/19 09/20/19 09/20/19 Range/Units 14:17 14:17 15:26 WBC 14.1 H D (4.0-11.0) K/uL RBC 3.03 L (4.50-6.50) M/uL Hgb 10.3 L (13.0-18.0) g/dL Hct 30.6 L (40.0-54.0) % MCV 101 H (76-96) fL MCH 34.0 H (27.0-32.0) pg MCHC 33.7 (31.0-35.0) g/dL RDW 13.5 (11.0-16.0) % Plt Count 368 (150-400) K/uL MPV 9.6 (6.0-10.0) fL Neut % (Auto) 87.8 H (45.0-70.0) % Lymph % (Auto) 2.6 L (20.0-40.0) % [place] % (Auto) 9.6 (3.0-10.0) % Eos % (Auto) 0.0 L (1.0-5.0) % Baso % (Auto) 0.0 (0.0-0.5) % Neut # (Auto) 12.34 H (2.00-7.50) K/uL Lymph # (Auto) 0.37 L (1.50-4.00) K/uL [place] # (Auto) 1.35 H (0.20-0.80) K/uL Eos # (Auto) 0.00 L (0.04-0.40) K/uL Baso # (Auto) 0.00 L (0.02-0.10) K/uL Sodium 140 (136-145) mmol/L Potassium 4.6 (3.5-5.1) mmol/L Chloride 104 (98-107) mmol/L Carbon Dioxide 19.5 L D (21.0-32.0) mmol/L Anion Gap 21.1 H (5.0-15.0) mmol/L BUN 61 H* D (8-26) mg/dL Creatinine 2.47 H D (0.70-1.30) mg/dL Est Cr Clr Drug Dosing TNP Estimated GFR (MDRD) 25 L (>60) MLS/MIN BUN/Creatinine Ratio 24.7 (6-25) Glucose 115 H (74-100) mg/dL Lactic Acid (0.4-2.0) mmol/L Calcium 8.9 (8.5-10.1) mg/dL Total Bilirubin 0.8 (0.0-1.0) mg/dL AST 18 (15-37) U/L ALT 10 L (12-78) U/L Alkaline Phosphatase 88 (46-116) U/L Total Protein 6.9 (6.4-8.2) g/dL Albumin 2.7 L (3.4-5.0) g/dL Globulin 4.2 (2.2-4.2) g/dL Albumin/Globulin Ratio 0.6 L (0.8-2.0) Urine Color Yellow Urine Appearance Cloudy (CLEAR) Urine pH 5.0 (5.0-8.0) Ur Specific [place] 1.020 (1.003-1.030) Urine Protein Negative (NEGATIVE) mg/dL Urine Glucose (UA) Negative (NEGATIVE) mg/dL Urine Ketones Trace H (NEGATIVE) mg/dL Urine Occult Blood Negative (NEGATIVE) Urine Nitrite Negative (NEGATIVE) Urine Bilirubin Negative (NEGATIVE) Urine Urobilinogen 0.2 (0.2-1.0) E.U./dL Ur Leukocyte Esterase Negative (NEGATIVE) COVID-19 ([facility]AN) 09/20/19 09/20/19 09/21/19 Range/Units 15:30 15:35 07:40 WBC (4.0-11.0) K/uL RBC (4.50-6.50) M/uL Hgb (13.0-18.0) g/dL Hct (40.0-54.0) % MCV (76-96) fL MCH (27.0-32.0) pg MCHC (31.0-35.0) g/dL RDW (11.0-16.0) % Plt Count (150-400) K/uL MPV (6.0-10.0) fL Neut % (Auto) (45.0-70.0) % Lymph % (Auto) (20.0-40.0) % [place] % (Auto) (3.0-10.0) % Eos % (Auto) (1.0-5.0) % Baso % (Auto) (0.0-0.5) % Neut # (Auto) (2.00-7.50) K/uL Lymph # (Auto) (1.50-4.00) K/uL [place] # (Auto) (0.20-0.80) K/uL Eos # (Auto) (0.04-0.40) K/uL Baso # (Auto) (0.02-0.10) K/uL Sodium 144 (136-145) mmol/L Potassium 3.8 (3.5-5.1) mmol/L Chloride 111 H (98-107) mmol/L Carbon Dioxide 19.1 L (21.0-32.0) mmol/L Anion Gap 17.7 H (5.0-15.0) mmol/L BUN 54 H* (8-26) mg/dL Creatinine 1.65 H D (0.70-1.30) mg/dL Est Cr Clr Drug Dosing 29.01 Estimated GFR (MDRD) 40 L (>60) MLS/MIN BUN/Creatinine Ratio 32.7 H (6-25) Glucose 84 (74-100) mg/dL Lactic Acid 1.8 (0.4-2.0) mmol/L Calcium 8.0 L (8.5-10.1) mg/dL Total Bilirubin 0.5 D (0.0-1.0) mg/dL AST 22 (15-37) U/L ALT 7 L (12-78) U/L Alkaline Phosphatase 73 (46-116) U/L Total Protein 5.8 L (6.4-8.2) g/dL Albumin 2.1 L (3.4-5.0) g/dL Globulin 3.7 (2.2-4.2) g/dL Albumin/Globulin Ratio 0.6 L (0.8-2.0) Urine Color Urine Appearance (CLEAR) Urine pH (5.0-8.0) Ur Specific [place] (1.003-1.030) Urine Protein (NEGATIVE) mg/dL Urine Glucose (UA) (NEGATIVE) mg/dL Urine Ketones (NEGATIVE) mg/dL Urine Occult Blood (NEGATIVE) Urine Nitrite (NEGATIVE) Urine Bilirubin (NEGATIVE) Urine Urobilinogen (0.2-1.0) E.U./dL Ur Leukocyte Esterase (NEGATIVE) COVID-19 (ETHAN) Negative 09/21/19 Range/Units 07:51 WBC 14.9 H (4.0-11.0) K/uL RBC 2.71 L (4.50-6.50) M/uL Hgb 9.2 L (13.0-18.0) g/dL Hct 27.5 L (40.0-54.0) % MCV 102 H (76-96) fL MCH 33.9 H (27.0-32.0) pg MCHC 33.5 (31.0-35.0) g/dL RDW 13.7 (11.0-16.0) % Plt Count 322 (150-400) K/uL MPV 10.1 H (6.0-10.0) fL Neut % (Auto) 86.4 H (45.0-70.0) % Lymph % (Auto) 6.9 L (20.0-40.0) % [place] % (Auto) 6.6 (3.0-10.0) % Eos % (Auto) 0.0 L (1.0-5.0) % Baso % (Auto) 0.1 (0.0-0.5) % Neut # (Auto) 12.88 H (2.00-7.50) K/uL Lymph # (Auto) 1.03 L (1.50-4.00) K/uL [place] # (Auto) 0.99 H (0.20-0.80) K/uL Eos # (Auto) 0.00 L (0.04-0.40) K/uL Baso # (Auto) 0.01 L (0.02-0.10) K/uL Sodium (136-145) mmol/L Potassium (3.5-5.1) mmol/L Chloride (98-107) mmol/L Carbon Dioxide (21.0-32.0) mmol/L Anion Gap (5.0-15.0) mmol/L BUN (8-26) mg/dL Creatinine (0.70-1.30) mg/dL Est Cr Clr Drug Dosing Estimated GFR (MDRD) (>60) MLS/MIN BUN/Creatinine Ratio (6-25) Glucose (74-100) mg/dL Lactic Acid (0.4-2.0) mmol/L Calcium (8.5-10.1) mg/dL Total Bilirubin (0.0-1.0) mg/dL AST (15-37) U/L ALT (12-78) U/L Alkaline Phosphatase (46-116) U/L Total Protein (6.4-8.2) g/dL Albumin (3.4-5.0) g/dL Globulin (2.2-4.2) g/dL Albumin/Globulin Ratio (0.8-2.0) Urine Color Urine Appearance (CLEAR) Urine pH (5.0-8.0) Ur Specific [place] (1.003-1.030) Urine Protein (NEGATIVE) mg/dL Urine Glucose (UA) (NEGATIVE) mg/dL Urine Ketones (NEGATIVE) mg/dL Urine Occult Blood (NEGATIVE) Urine Nitrite (NEGATIVE) Urine Bilirubin (NEGATIVE) Urine Urobilinogen (0.2-1.0) E.U./dL Ur Leukocyte Esterase (NEGATIVE) COVID-19 (ETHAN) Med Orders - Current: Current Medications Acetaminophen (Tylenol) 650 mg PO Q4H PRN PRN Reason: Pain (Mild 1-3)/fever Albuterol/Ipratropium (Duoneb 3.0-0.5 Mg/3 Ml) 3 ml NEB Q4H PRN PRN Reason: sob Allopurinol (Zyloprim) 100 mg PO DAILY PRN PRN Reason: pain Aspirin (Halfprin) 81 mg PO DAILY [facility]IRTA Last Admin: 09/21/19 08:29 Dose: 81 mg Documented by: Carbidopa/Levodopa (Sinemet Cr 50-200 Mg) 1 tab PO DAILY@2200 [facility] Last Admin: 09/20/19 22:57 Dose: 1 tab Documented by: Ceftriaxone Sodium 1 gm/ (Sodium Chloride) 50 mls @ 100 mls/hr IV Q24H [facility] Azithromycin 250 mg/ Sodium (Chloride) 250 mls @ 250 mls/hr IV Q24H [facility] Dextrose/Sodium Chloride (Dextrose 5%-1/2 Ns) 1,000 mls @ 75 mls/hr IV ASDIRECTED [facility] Latanoprost (Xalatan 0.005% Ophth Soln) 0 ml EYELF BEDTIME [facility] Last Admin: 09/20/19 23:11 Dose: Not Given Documented by: [Carbidopa-Levodopa (25-250] *Pt Own Med*) 1 each PO Q2HR [facility] Last Admin: 09/21/19 08:29 Dose: 1 each Documented by: Omeprazole (Omeprazole) 20 mg PO ACBREAKFAST [facility] Last Admin: 09/21/19 06:20 Dose: 20 mg Documented by: Polyethylene Glycol (Miralax) 17 gm PO DAILY PRN PRN Reason: Constipation Sodium Chloride (Saline Flush) 10 ml FLUSH ASDIRECTED PRN PRN Reason: Keep Vein Open Discontinued Medications Carbidopa/Levodopa (Sinemet Cr 50-200 Mg) 1 tab PO BEDTIME [facility] Ceftriaxone Sodium (Rocephin) Confirm Administered Dose 1 gm .ROUTE .STK-MED ONE Stop: 09/20/19 15:01 Last Admin: 09/20/19 14:54 Dose: Not Given Documented by: Gabapentin (Neurontin) 100 mg PO BID [facility] Sodium Chloride (Normal Saline) 1,000 mls @ 999 mls/hr IV .BOLUS ONE Stop: 09/20/19 15:19 Last Admin: 09/20/19 14:20 Dose: 999 mls/hr Documented by: Ceftriaxone Sodium 1 gm/ (Sodium Chloride) 50 mls @ 100 mls/hr IV ONETIME ONE Stop: 09/20/19 15:19 Last Admin: 09/20/19 15:15 Dose: 100 mls/hr Documented by: Sodium Chloride (Normal Saline) 1,000 mls @ 75 mls/hr IV ASDIRECTED [facility]IRTA Last Admin: 09/20/19 15:24 Dose: 999 mls/hr Documented by: Azithromycin 500 mg/ Sodium (Chloride) 250 mls @ 250 mls/hr IV ONETIME ONE Stop: 09/20/19 19:07 Last Admin: 09/20/19 18:25 Dose: 250 mls/hr Documented by: Sepsis Event Note - Evaluation Sepsis Screening Result: No Definite Risk - Focused Exam Vital Signs: Vital Signs Temp Pulse Resp BP Pulse Ox 09/21/19 06:00 97 F 63 18 107/67 96 09/21/19 02:00 97.4 F 60 18 111/70 98 09/20/19 22:52 97 F 65 18 112/39 L 95 Date Exam was Performed: 09/21/19 Time Exam was Performed: 09:23 - Problem List Review Problem List Initiated/Reviewed/Updated: Yes - My Orders Last 24 Hours: My Active Orders 09/20/19 14:17 Sodium Chloride 0.9% [Saline Flush] 10 ml FLUSH ASDIRECTED PRN Peripheral IV Insertion Adult [OM.PC] Routine 09/20/19 14:19 EKG Documentation Completion [RC] ASDIRECTED 09/20/19 14:35 Insert Peña Catheter [Insert Urinary Catheter] [OM.PC] Q24H 09/20/19 14:58 CULTURE BLOOD [BC] Stat 09/20/19 15:00 CULTURE URINE [RM] Stat 09/20/19 15:30 CULTURE BLOOD [BC] Stat 09/20/19 17:10 Urinary Catheter Assessment [RC] 09/20/19 19:01 CULTURE MRSA SURVEY [RM] Routine 09/21/19 08:45 Dextrose 5%-0.45% NaCl [Dextrose 5%-1/2 NS] 1,000 ml IV ASDIRECTED 09/21/19 09:11 LACTIC ACID [CHEM] Routine 09/21/19 09:12 URINALYSIS W/MICROSCOPIC [UA W/MICROSCOPIC] [URIN] Routine 09/21/19 16:00 CBC WITH AUTO DIFF [HEME] Routine COMPREHENSIVE METABOLIC PN,CMP [CHEM] Routine - Assessment Assessment:: See plan - Plan Plan:: Ehospitalist collaboration: 84-year-old male admitted to the emergency room for left lower lobe pneumonia, hypotension, dehydration/volume depletion. Patient presented to the ED initially unresponsive, genearlized weakness, lethargy, and hypotension with blood pressure 71/39. Patient has past medical history of Parkinson's, hypertension, chronic pain. He is also nonverbal at baseline. He lives at home with his and his son. He was found to have leukocytosis of 14. Lactic acid was 1.8. Chest x-ray left lower lobe pneumonia. COVID negative. Initial respiratory rate was 28 and he had acute hypoxic respiratory failure with O2 sat 84% on room air. Since receiving 2 L of IV fluid blood pressure is improved to 119/42. Heart rate 69. Respiratory rate 16. O2 sat 95% on 2 L nasal cannula. He has been given 1 g of Rocephin, also is receiving azithromycin. On telemedicine camera evaluation, at this time the controls for stethoscope are not working. But, I was still able to evaluate the patient over camera, no respiratory distress via video view, he was lying in bed, he is nonverbal at baseline. He appeared calm. He was cooperative. He does have a right lower leg dixno wound that has been following with wound care outpatient. We will continue Vaseline and gauze and follow-up with physical therapy wound care tomorrow. No signs of surrounding cellulitis. Abd soft for nursing palpation. Assessment and plan: Hypotension related to pneumonia, volume depletion/dehydration. Responded well to IV fluids and now resolved with blood pressure 119/42, hold his antihypertensive medications tonite, reassess tomorrow. Continue IV fluids normal saline at 75 mL/h. Had decreased mentation on arrival to ED, but is better, now, hold Melatonin and tramadol for now. Held Gabapentin with his renal function, reassess in the am to resume to avoid withdrawal. Community-acquired pneumonia, left lower lobe,acute hypoxic resp failure: Continue Rocephin and Azithromycin. R. leg wound: continue wound care, no signs of cellulitis. Parkinson's: continue home meds. LONA on CKD, baseline cr 1.3, today 2.47, he is making urine. Avoid hypotension or nephrotoxic meds. Monitor uop and repeat renal function in the AM. K was not elevated. Please call E hospitalist with any questions.
[2019-09-21] MEDS: cefTRIAXone 1 GM in Sodium Chloride 0.9% 50 ML IV SCH (15:22)
[2019-09-21] MEDS: LORazepam 2 MG/ML SDV IVPUSH PRN (15:58)
[2019-09-21] MEDS ORDERED: fentaNYL 100 MCG/2 ML SDV IVPUSH ONE (16:25)
[2019-09-21] MEDS: Azithromycin 250 MG in Sodium Chloride 0.9% 250 ML IV SCH (18:00)
[2019-09-21] MEDS ORDERED: Haloperidol Lactate 5 MG/ML SDV ONE (20:14)
[2019-09-21] MEDS: diphenhydrAMINE 50 MG/ML SDV IVPUSH PRN (20:14)
[2019-09-21] MEDS: diphenhydrAMINE 50 MG/ML SDV ONE (20:14)
[2019-09-21] MEDS ORDERED: Haloperidol Lactate 5 MG/ML SDV IM ONE (20:34)
[2019-09-21] MEDS: Carbidopa/Levodopa 50-200 MG Tab.ER PO SCH (22:45)
[2019-09-22] MEDS: CARBIDOPA LEVODOPA PO SCH ×8 (06:33→22:36)
[2019-09-22] MEDS: Latanoprost 0.005% Ophth Soln 2.5 ML Bottle EYELF SCH ×2 (06:33→22:36)
[2019-09-22] MEDS: Omeprazole 20 MG Cap.CR PO SCH (06:34)
[2019-09-22] MEDS: diphenhydrAMINE 50 MG/ML SDV ONE (06:38)
[2019-09-22] MEDS: Aspirin 81 MG Tab.EC PO SCH (08:00)
[2019-09-22] MEDS: LORazepam 2 MG/ML SDV IVPUSH PRN (11:13)
--- NOTE | 2019-09-22 12:01 | PCM.PN ---
- General Info Date of Service: 09/22/19 Subjective Update: Patient appears to have improved to baseline. Family do not note any deficiencies or concerns, however, patient is very restless and family reassure that is his usual when at home. Patient does pick at his skin and has had multiple skin sores due to this habit. Functional Status: Reports: Pain Controlled, Other (does not communicate well and does not follow commands; difficult to obtain full ROS) - Review of Systems General: Reports: Weakness HEENT: Reports: No Symptoms Pulmonary: Reports: No Symptoms Cardiovascular: Reports: No Symptoms Skin: Reports: Other (multiple open sores on admission of the sacrum, and legs) Neurological: Reports: Confusion, Weakness Psychiatric: Reports: Confusion - Patient Data Vitals - Most Recent: Last Vital Signs Temp 36.6 C 09/22/19 09:00 Pulse 64 09/22/19 09:00 Resp 16 09/22/19 09:00 BP 118/64 09/22/19 09:00 Pulse Ox 98 09/22/19 09:00 Weight - Most Recent: 63.82 kg I&O - Last 24 Hours: Intake & Output 09/21/19 09/22/19 09/22/19 22:59 06:59 14:59 Intake Total 2658 30 Output Total 400 650 Balance 2258 -620 Lab Results Last 24 Hours: Laboratory Results - last 24 hr 09/21/19 09/21/19 09/21/19 Range/Units 13:00 16:14 16:14 WBC 13.1 H (4.0-11.0) K/uL RBC 2.57 L (4.50-6.50) M/uL Hgb 8.7 L (13.0-18.0) g/dL Hct 26.0 L (40.0-54.0) % MCV 101 H (76-96) fL MCH 33.9 H (27.0-32.0) pg MCHC 33.5 (31.0-35.0) g/dL RDW 13.6 (11.0-16.0) % Plt Count 353 (150-400) K/uL MPV 9.3 (6.0-10.0) fL Neut % (Auto) 81.4 H (45.0-70.0) % Lymph % (Auto) 10.9 L (20.0-40.0) % [place] % (Auto) 7.5 (3.0-10.0) % Eos % (Auto) 0.1 L (1.0-5.0) % Baso % (Auto) 0.1 (0.0-0.5) % Neut # (Auto) 10.65 H (2.00-7.50) K/uL Lymph # (Auto) 1.42 L (1.50-4.00) K/uL [place] # (Auto) 0.98 H (0.20-0.80) K/uL Eos # (Auto) 0.01 L (0.04-0.40) K/uL Baso # (Auto) 0.01 L (0.02-0.10) K/uL Sodium 143 (136-145) mmol/L Potassium 3.3 L (3.5-5.1) mmol/L Chloride 110 H (98-107) mmol/L Carbon Dioxide 21.1 (21.0-32.0) mmol/L Anion Gap 15.2 H (5.0-15.0) mmol/L BUN 45 H (8-26) mg/dL Creatinine 1.36 H (0.70-1.30) mg/dL Est Cr Clr Drug Dosing 35.20 mL/min Estimated GFR (MDRD) 50 L (>60) MLS/MIN BUN/Creatinine Ratio 33.1 H (6-25) Glucose 105 H (74-100) mg/dL Calcium 7.9 L (8.5-10.1) mg/dL Total Bilirubin 0.4 (0.0-1.0) mg/dL AST 24 (15-37) U/L ALT 6 L (12-78) U/L Alkaline Phosphatase 68 (46-116) U/L Total Protein 5.6 L (6.4-8.2) g/dL Albumin 2.0 L (3.4-5.0) g/dL Globulin 3.6 (2.2-4.2) g/dL Albumin/Globulin Ratio 0.6 L (0.8-2.0) Urine Color Yellow Urine Appearance Clear (CLEAR) Urine pH 5.0 (5.0-8.0) Ur Specific [place] 1.020 (1.003-1.030) Urine Protein 30 H (NEGATIVE) mg/dL Urine Glucose (UA) Negative (NEGATIVE) mg/dL Urine Ketones Trace H (NEGATIVE) mg/dL Urine Occult Blood Negative (NEGATIVE) Urine Nitrite Negative (NEGATIVE) Urine Bilirubin Negative (NEGATIVE) Urine Urobilinogen 1.0 (0.2-1.0) E.U./dL Ur Leukocyte Esterase Trace H (NEGATIVE) Urine RBC Not Reportable Urine WBC 10-20 H /HPF Urine Bacteria Few /HPF Coarse Granular Casts Few H /HPF 09/22/19 Range/Units 07:10 WBC 11.4 H (4.0-11.0) K/uL RBC 2.60 L (4.50-6.50) M/uL Hgb 8.8 L (13.0-18.0) g/dL Hct 26.3 L (40.0-54.0) % MCV 101 H (76-96) fL MCH 33.8 H (27.0-32.0) pg MCHC 33.5 (31.0-35.0) g/dL RDW 13.5 (11.0-16.0) % Plt Count 349 (150-400) K/uL MPV 9.2 (6.0-10.0) fL Neut % (Auto) 84.3 H (45.0-70.0) % Lymph % (Auto) 8.9 L (20.0-40.0) % [place] % (Auto) 6.4 (3.0-10.0) % Eos % (Auto) 0.3 L (1.0-5.0) % Baso % (Auto) 0.1 (0.0-0.5) % Neut # (Auto) 9.63 H (2.00-7.50) K/uL Lymph # (Auto) 1.02 L (1.50-4.00) K/uL [place] # (Auto) 0.73 (0.20-0.80) K/uL Eos # (Auto) 0.04 (0.04-0.40) K/uL Baso # (Auto) 0.01 L (0.02-0.10) K/uL Sodium (136-145) mmol/L Potassium (3.5-5.1) mmol/L Chloride (98-107) mmol/L Carbon Dioxide (21.0-32.0) mmol/L Anion Gap (5.0-15.0) mmol/L BUN (8-26) mg/dL Creatinine (0.70-1.30) mg/dL Est Cr Clr Drug Dosing mL/min Estimated GFR (MDRD) (>60) MLS/MIN BUN/Creatinine Ratio (6-25) Glucose (74-100) mg/dL Calcium (8.5-10.1) mg/dL Total Bilirubin (0.0-1.0) mg/dL AST (15-37) U/L ALT (12-78) U/L Alkaline Phosphatase (46-116) U/L Total Protein (6.4-8.2) g/dL Albumin (3.4-5.0) g/dL Globulin (2.2-4.2) g/dL Albumin/Globulin Ratio (0.8-2.0) Urine Color Urine Appearance (CLEAR) Urine pH (5.0-8.0) Ur Specific [place] (1.003-1.030) Urine Protein (NEGATIVE) mg/dL Urine Glucose (UA) (NEGATIVE) mg/dL Urine Ketones (NEGATIVE) mg/dL Urine Occult Blood (NEGATIVE) Urine Nitrite (NEGATIVE) Urine Bilirubin (NEGATIVE) Urine Urobilinogen (0.2-1.0) E.U./dL Ur Leukocyte Esterase (NEGATIVE) Urine RBC Urine WBC /HPF Urine Bacteria /HPF Coarse Granular Casts /HPF Faheem Results Last 24 Hours: Microbiology 09/20/19 15:00 Urine Culture - Preliminary Urine, Catheterized NO GROWTH AFTER 1 DAY 09/20/19 19:01 MRSA Surveillance Culture - Final Nares, Left NO MRSA ISOLATED 09/20/19 14:58 Aerobic Blood Culture - Preliminary Blood NO GROWTH AFTER 1 DAY Anaerobic Blood Culture - Preliminary NO GROWTH AFTER 1 DAY 09/20/19 15:30 Aerobic Blood Culture - Preliminary Blood NO GROWTH AFTER 1 DAY Anaerobic Blood Culture - Preliminary NO GROWTH AFTER 1 DAY Med Orders - Current: Current Medications Acetaminophen (Tylenol) 650 mg PO Q4H PRN PRN Reason: Pain (Mild 1-3)/fever Albuterol/Ipratropium (Duoneb 3.0-0.5 Mg/3 Ml) 3 ml NEB Q4H PRN PRN Reason: sob Allopurinol (Zyloprim) 100 mg PO DAILY PRN PRN Reason: pain Aspirin (Halfprin) 81 mg PO DAILY [facility] Last Admin: 09/22/19 08:00 Dose: 81 mg Documented by: Carbidopa/Levodopa (Sinemet Cr 50-200 Mg) 1 tab PO DAILY@2200 [facility] Last Admin: 09/21/19 22:45 Dose: 1 tab Documented by: Diphenhydramine HCl (Benadryl) 25 mg IVPUSH BEDTIME PRN PRN Reason: Anxiety Last Admin: 09/21/19 20:14 Dose: 25 mg Documented by: Ceftriaxone Sodium 1 gm/ (Sodium Chloride) 50 mls @ 100 mls/hr IV Q24H [facility] Last Admin: 09/21/19 15:22 Dose: 100 mls/hr Documented by: Azithromycin 250 mg/ Sodium (Chloride) 250 mls @ 250 mls/hr IV Q24H [facility] Last Admin: 09/21/19 18:00 Dose: 250 mls/hr Documented by: Dextrose/Sodium Chloride (Dextrose 5%-1/2 Ns) 1,000 mls @ 75 mls/hr IV ASDIRECTED [facility] Last Admin: 09/21/19 11:00 Dose: 75 mls/hr Documented by: Latanoprost (Xalatan 0.005% Ophth Soln) 0 ml EYELF BEDTIME [facility] Last Admin: 09/22/19 06:33 Dose: Not Given Documented by: Lorazepam (Ativan) 1 mg IVPUSH Q4H PRN PRN Reason: Agitation Last Admin: 09/22/19 11:13 Dose: 1 mg Documented by: [Carbidopa-Levodopa (25-250] *Pt Own Med*) 1 each PO Q2HR [facility] Last Admin: 09/22/19 11:13 Dose: Not Given Documented by: Omeprazole (Omeprazole) 20 mg PO ACBREAKFAST [facility] Last Admin: 09/22/19 06:34 Dose: 20 mg Documented by: Polyethylene Glycol (Miralax) 17 gm PO DAILY PRN PRN Reason: Constipation Sodium Chloride (Saline Flush) 10 ml FLUSH ASDIRECTED PRN PRN Reason: Keep Vein Open Discontinued Medications Carbidopa/Levodopa (Sinemet Cr 50-200 Mg) 1 tab PO BEDTIME [facility] Ceftriaxone Sodium (Rocephin) Confirm Administered Dose 1 gm .ROUTE .STK-MED ONE Stop: 09/20/19 15:01 Last Admin: 09/20/19 14:54 Dose: Not Given Documented by: Diphenhydramine HCl (Benadryl) Confirm Administered Dose 50 mg .ROUTE .STK-MED ONE Stop: 09/21/19 20:15 Last Admin: 09/22/19 06:38 Dose: Not Given Documented by: Fentanyl (Sublimaze) 25 mcg IVPUSH ONETIME ONE Stop: 09/21/19 16:26 Last Admin: 09/21/19 16:26 Dose: 25 mcg Documented by: Gabapentin (Neurontin) 100 mg PO BID [facility] Haloperidol Lactate (Haldol) Confirm Administered Dose 5 mg .ROUTE .STK-MED ONE Stop: 09/21/19 20:15 Last Admin: 09/22/19 06:36 Dose: Not Given Documented by: Haloperidol Lactate (Haldol) 5 mg IM ONETIME ONE Stop: 09/21/19 20:35 Last Admin: 09/21/19 20:34 Dose: 5 mg Documented by: Sodium Chloride (Normal Saline) 1,000 mls @ 999 mls/hr IV .BOLUS ONE Stop: 09/20/19 15:19 Last Admin: 09/20/19 14:20 Dose: 999 mls/hr Documented by: Ceftriaxone Sodium 1 gm/ (Sodium Chloride) 50 mls @ 100 mls/hr IV ONETIME ONE Stop: 09/20/19 15:19 Last Admin: 09/20/19 15:15 Dose: 100 mls/hr Documented by: Sodium Chloride (Normal Saline) 1,000 mls @ 75 mls/hr IV ASDIRECTED [facility] Last Admin: 09/20/19 15:24 Dose: 999 mls/hr Documented by: Azithromycin 500 mg/ Sodium (Chloride) 250 mls @ 250 mls/hr IV ONETIME ONE Stop: 09/20/19 19:07 Last Admin: 09/20/19 18:25 Dose: 250 mls/hr Documented by: - Exam General: No Acute Distress HEENT: Pupils Equal, Pupils Reactive, EOMI Neck: Supple Lungs: Decreased Breath Sounds (left side) Cardiovascular: Regular Rate, Regular Rhythm GI/Abdominal Exam: Normal Bowel Sounds, Soft, Non-Tender Back Exam: Normal Inspection Extremities: Other (slight mottling of legs but per family this has been present for years) Peripheral Pulses: 2+: Dorsalis Pedis (L), Dorsalis Pedis (R) Skin: Other (sacral decubitus lesions in various forms of healing with granulation tissue ranging from 2mm excoriations to 1.2cm sores (10 lesions in all on b/l buttocks)) Sepsis Event Note - Evaluation Sepsis Screening Result: No Definite Risk - Focused Exam Vital Signs: Vital Signs Temp Pulse Resp BP Pulse Ox 09/22/19 09:00 36.6 C 64 16 118/64 98 09/22/19 05:32 36.1 C 72 20 116/78 98 09/22/19 03:00 36.4 C 60 20 114/70 96 Date Exam was Performed: 09/23/19 Time Exam was Performed: 08:35 - Problem List & Annotations (1) Severe muscle deconditioning SNOMED Code(s): 075297412 Code(s): R29.898 - OTH SYMPTOMS AND SIGNS INVOLVING THE MUSCULOSKELETAL SYSTEM Status: Acute Current Visit: Yes (2) Decubitus skin ulcer SNOMED Code(s): 063028771 Code(s): L89.90 - PRESSURE ULCER OF UNSPECIFIED SITE, UNSPECIFIED STAGE Status: Acute Current Visit: Yes (3) Pneumonia SNOMED Code(s): 253894949 Code(s): J18.9 - PNEUMONIA, UNSPECIFIED ORGANISM Status: Acute Current Visit: Yes - Problem List Review Problem List Initiated/Reviewed/Updated: Yes - Assessment Assessment:: See plan - Plan Plan:: Ehospitalist collaboration: 84-year-old male admitted to the emergency room for left lower lobe pneumonia, hypotension, dehydration/volume depletion. Patient presented to the ED initially unresponsive, genearlized weakness, lethargy, and hypotension with blood pressure 71/39. Patient has past medical history of Parkinson's, hypertension, chronic pain. He is also nonverbal at baseline. He lives at home with his and his son. He was found to have leukocytosis of 14. Lactic acid was 1.8. Chest x-ray left lower lobe pneumonia. COVID negative. Initial respiratory rate was 28 and he had acute hypoxic respiratory failure with O2 sat 84% on room air. Since receiving 2 L of IV fluid blood pressure is improved to 119/42. Heart rate 69. Respiratory rate 16. O2 sat 95% on 2 L nasal cannula. He has been given 1 g of Rocephin, also is receiving azithromycin. On telemedicine camera evaluation, at this time the controls for stethoscope are not working. But, I was still able to evaluate the patient over camera, no respiratory distress via video view, he was lying in bed, he is nonverbal at baseline. He appeared calm. He was cooperative. He does have a right lower leg dixon wound that has been following with wound care outpatient. We will continue Vaseline and gauze and follow-up with physical therapy wound care tomorrow. No signs of surrounding cellulitis. Abd soft for nursing palpation. Assessment and plan: Hypotension related to pneumonia, volume depletion/dehydration. Responded well to IV fluids and now resolved with blood pressure 119/42, hold his antihypertensive medications tonite, reassess tomorrow. Continue IV fluids normal saline at 75 mL/h. Had decreased mentation on arrival to ED, but is better, now, hold Melatonin and tramadol for now. Held Gabapentin with his renal function, reassess in the am to resume to avoid withdrawal. Community-acquired pneumonia, left lower lobe,acute hypoxic resp failure: Continue Rocephin and Azithromycin. R. leg wound: continue wound care, no signs of cellulitis. Parkinson's: continue home meds. LONA on CKD, baseline cr 1.3, today 2.47, he is making urine. Avoid hypotension or nephrotoxic meds. Monitor uop and repeat renal function in the AM. K was not elevated. Please call E hospitalist with any questions.
[2019-09-22] MEDS ORDERED: LORazepam 2 MG/ML SDV IVPUSH ONE (13:54)
[2019-09-22] MEDS ORDERED: Dextrose 5%-0.45% NaCl 1,000 ML IV SCH (14:45)
[2019-09-22] MEDS: cefTRIAXone 1 GM in Sodium Chloride 0.9% 50 ML IV SCH (16:00)
[2019-09-22] MEDS: QUEtiapine 25 MG Tab PO SCH ×2 (17:12→19:36)
[2019-09-22] MEDS: Azithromycin 250 MG in Sodium Chloride 0.9% 250 ML IV SCH (17:39)
[2019-09-22] MEDS: Haloperidol Lactate 5 MG/ML SDV IM PRN (19:42)
[2019-09-22] MEDS: Carbidopa/Levodopa 50-200 MG Tab.ER PO SCH (22:36)
[2019-09-23] MEDS: CARBIDOPA LEVODOPA PO SCH ×9 (05:22→22:20)
[2019-09-23] MEDS: Omeprazole 20 MG Cap.CR PO SCH ×2 (05:22→06:17)
--- NOTE | 2019-09-23 09:18 | PCM.DCSUM1 ---
Discharge Summary - Discharge Data Discharge Date: 09/23/19 Discharge Disposition: DC/Tfer W/I Hosp To Swing 61 Condition: Serious - Referral to Home Health Primary Care Physician: PCP None - Discharge Diagnosis/Problem(s) (1) Severe muscle deconditioning SNOMED Code(s): 767152743 ICD Code: R29.898 - OTH SYMPTOMS AND SIGNS INVOLVING THE MUSCULOSKELETAL SYSTEM Status: Acute Current Visit: Yes (2) Decubitus skin ulcer SNOMED Code(s): 454943904 ICD Code: L89.90 - PRESSURE ULCER OF UNSPECIFIED SITE, UNSPECIFIED STAGE Status: Acute Current Visit: Yes (3) Pneumonia SNOMED Code(s): 265717921 ICD Code: J18.9 - PNEUMONIA, UNSPECIFIED ORGANISM Status: Acute Current Visit: Yes - Patient Summary/Data Consults: Consultations 09/21/19 09:57 Consult to Speech Language Pathology [OUTREACH LIBRARIAN Evaluation and Treatment] [CONS] Routine Please Evaluate and Treat OUTREACH LIBRARIAN Reason for Consult: Swallow This query below is only for informational purposes and is not editable. Admission Diagnosis/Problem: Pneumonia 09/21/19 14:19 PT Evaluation and Treatment [CONS] Routine Please Evaluate and Treat. PT Reason for Consult: Wound Care This query below is only for informational purposes and is not editable. Admission Diagnosis/Problem: Pneumonia - Discharge Plan Home Medications: Home Meds Carbidopa/Levodopa [Carbidopa-Levodopa 25-250] 1 each PO Q2HR 11/29/12 [History] Carbidopa/Levodopa [Sinemet CR 50-200] 1 each PO BEDTIME 11/29/12 [History] Losartan [Cozaar] 50 mg PO DAILY 11/29/12 [History] Omeprazole 20 mg PO DAILY 11/29/12 [History] allopurinoL [Zyloprim] 100 mg PO DAILY PRN 11/29/12 [History] amLODIPine Besylate [Norvasc] 10 mg PO DAILY 11/29/12 [History] atenoloL [Atenolol] 25 mg PO DAILY 11/29/12 [History] hydroCHLOROthiazide [Hydrochlorothiazide] 12.5 mg PO DAILY 11/29/12 [History] Acetaminophen [Acetaminophen Extra Strength] 1,000 mg PO Q6HR PRN 11/12/18 [History] Aspirin [Halfprin] 81 mg PO DAILY 11/12/18 [History] Gabapentin [Neurontin] 100 mg PO BID 11/12/18 [History] Latanoprost/Pf [Latanoprost 0.005% Eye Drop] 7.5 ml EYELF BEDTIME 11/12/18 [History] Melatonin 3 mg PO BEDTIME PRN 11/12/18 [History] polyethylene glycoL 3350 [MiraLAX] 17 gm PO DAILY PRN 11/12/18 [History] traMADol [Ultram] 50 mg PO QID PRN 11/12/18 [History] Forms: ED Department Discharge Referrals: PCP,None [Primary Care Provider] - - Discharge Summary/Plan Comment DC Time >30 min.: Yes Discharge Summary/Plan Comment: Patient plan for subacute rehabilitation and then discharge home in care of family. Discussed care center and other possibilities and family will consider all options. Continuation of rehabilitation and wound care in sub acute rehab. We will monitor electrolytes and continue management. F/u dietary and speech for swallow evaluation. - General Info Date of Service: 09/23/19 Functional Status: Reports: Pain Controlled, Other (unable to obtain full ROS) - Review of Systems General: Reports: Weakness - Patient Data Vitals - Most Recent: Last Vital Signs Temp 36.1 C 09/23/19 08:29 Pulse 53 L 09/23/19 08:29 Resp 24 H 09/23/19 08:29 BP 114/44 L 09/23/19 08:29 Pulse Ox 98 09/23/19 08:29 Weight - Most Recent: 63.82 kg I&O - Last 24 hours: Intake & Output 09/22/19 09/23/19 09/23/19 22:59 06:59 14:59 Intake Total 0 25 Output Total 350 Balance -350 25 Lab Results - Last 24 hrs: Laboratory Results - last 24 hr 09/23/19 09/23/19 Range/Units 07:25 07:25 WBC 10.5 (4.0-11.0) K/uL RBC 2.58 L (4.50-6.50) M/uL Hgb 8.8 L (13.0-18.0) g/dL Hct 26.2 L (40.0-54.0) % MCV 102 H (76-96) fL MCH 34.1 H (27.0-32.0) pg MCHC 33.6 (31.0-35.0) g/dL RDW 13.8 (11.0-16.0) % Plt Count 343 (150-400) K/uL MPV 10.4 H (6.0-10.0) fL Neut % (Auto) 75.3 H (45.0-70.0) % Lymph % (Auto) 15.8 L (20.0-40.0) % [place] % (Auto) 8.4 (3.0-10.0) % Eos % (Auto) 0.5 L (1.0-5.0) % Baso % (Auto) 0.0 (0.0-0.5) % Neut # (Auto) 7.89 H (2.00-7.50) K/uL Lymph # (Auto) 1.65 (1.50-4.00) K/uL [place] # (Auto) 0.88 H (0.20-0.80) K/uL Eos # (Auto) 0.05 (0.04-0.40) K/uL Baso # (Auto) 0.00 L (0.02-0.10) K/uL Sodium 148 H (136-145) mmol/L Potassium 3.2 L (3.5-5.1) mmol/L Chloride 113 H (98-107) mmol/L Carbon Dioxide 22.8 (21.0-32.0) mmol/L Anion Gap 15.4 H (5.0-15.0) mmol/L BUN 23 D (8-26) mg/dL Creatinine 0.72 D (0.70-1.30) mg/dL Est Cr Clr Drug Dosing 66.48 mL/min Estimated GFR (MDRD) > 60 (>60) MLS/MIN BUN/Creatinine Ratio 31.9 H (6-25) Glucose 81 (74-100) mg/dL Calcium 7.9 L (8.5-10.1) mg/dL Total Bilirubin 0.4 (0.0-1.0) mg/dL AST 24 (15-37) U/L ALT 7 L (12-78) U/L Alkaline Phosphatase 64 (46-116) U/L Total Protein 5.6 L (6.4-8.2) g/dL Albumin 1.9 L (3.4-5.0) g/dL Globulin 3.7 (2.2-4.2) g/dL Albumin/Globulin Ratio 0.5 L (0.8-2.0) TSH, Ultra Sensitive 5.004 H D (0.358-3.740) uIU/mL ALIX Results - Last 24 hrs: Microbiology 09/20/19 15:30 Aerobic Blood Culture - Preliminary Blood NO GROWTH AFTER 2 DAYS Anaerobic Blood Culture - Preliminary NO GROWTH AFTER 2 DAYS 09/20/19 14:58 Aerobic Blood Culture - Preliminary Blood NO GROWTH AFTER 2 DAYS Anaerobic Blood Culture - Preliminary NO GROWTH AFTER 2 DAYS 09/20/19 15:00 Urine Culture - Preliminary Urine, Catheterized NO GROWTH AFTER 1 DAY 09/20/19 19:01 MRSA Surveillance Culture - Final Nares, Left NO MRSA ISOLATED Med Orders - Current: Current Medications Acetaminophen (Tylenol) 650 mg PO Q4H PRN PRN Reason: Pain (Mild 1-3)/fever Albuterol/Ipratropium (Duoneb 3.0-0.5 Mg/3 Ml) 3 ml NEB Q4H PRN PRN Reason: sob Allopurinol (Zyloprim) 100 mg PO DAILY PRN PRN Reason: pain Aspirin (Halfprin) 81 mg PO DAILY [facility] Last Admin: 09/22/19 08:00 Dose: 81 mg Documented by: Carbidopa/Levodopa (Sinemet Cr 50-200 Mg) 1 tab PO DAILY@2200 [facility] Last Admin: 09/22/19 22:36 Dose: Not Given Documented by: Diphenhydramine HCl (Benadryl) 25 mg IVPUSH BEDTIME PRN PRN Reason: Anxiety Last Admin: 09/21/19 20:14 Dose: 25 mg Documented by: Haloperidol Lactate (Haldol) 5 mg IM Q4H PRN PRN Reason: Agitation Last Admin: 09/22/19 19:42 Dose: 5 mg Documented by: Ceftriaxone Sodium 1 gm/ (Sodium Chloride) 50 mls @ 100 mls/hr IV Q24H [facility] Last Admin: 09/22/19 16:00 Dose: 100 mls/hr Documented by: Azithromycin 250 mg/ Sodium (Chloride) 250 mls @ 250 mls/hr IV Q24H [facility] Last Admin: 09/22/19 17:39 Dose: 250 mls/hr Documented by: Potassium Chloride/Sodium Chloride (1/2 Ns With 20 Meq Kcl) 1,000 mls @ 100 mls/hr IV ASDIRECTED [facility] Latanoprost (Xalatan 0.005% Ophth Soln) 0 ml EYELF BEDTIME [facility] Last Admin: 09/22/19 22:36 Dose: Not Given Documented by: Lorazepam (Ativan) 1 mg SUBCUT Q4H PRN PRN Reason: Agitation [Carbidopa-Levodopa (25-250] *Pt Own Med*) 1 each PO Q2HR [facility] Last Admin: 09/23/19 05:22 Dose: 1 each Documented by: Omeprazole (Omeprazole) 20 mg PO ACBREAKFAST [facility] Last Admin: 09/23/19 06:17 Dose: Not Given Documented by: Polyethylene Glycol (Miralax) 17 gm PO DAILY PRN PRN Reason: Constipation Quetiapine Fumarate (Seroquel) 25 mg PO DAILY [facility] Last Admin: 09/22/19 19:36 Dose: 25 mg Documented by: Sodium Chloride (Saline Flush) 10 ml FLUSH ASDIRECTED PRN PRN Reason: Keep Vein Open Discontinued Medications Carbidopa/Levodopa (Sinemet Cr 50-200 Mg) 1 tab PO BEDTIME [facility] Ceftriaxone Sodium (Rocephin) Confirm Administered Dose 1 gm .ROUTE .STK-MED ONE Stop: 09/20/19 15:01 Last Admin: 09/20/19 14:54 Dose: Not Given Documented by: Diphenhydramine HCl (Benadryl) Confirm Administered Dose 50 mg .ROUTE .STK-MED ONE Stop: 09/21/19 20:15 Last Admin: 09/22/19 06:38 Dose: Not Given Documented by: Fentanyl (Sublimaze) 25 mcg IVPUSH ONETIME ONE Stop: 09/21/19 16:26 Last Admin: 09/21/19 16:26 Dose: 25 mcg Documented by: Gabapentin (Neurontin) 100 mg PO BID [facility] Haloperidol Lactate (Haldol) Confirm Administered Dose 5 mg .ROUTE .STK-MED ONE Stop: 09/21/19 20:15 Last Admin: 09/22/19 06:36 Dose: Not Given Documented by: Haloperidol Lactate (Haldol) 5 mg IM ONETIME ONE Stop: 09/21/19 20:35 Last Admin: 09/21/19 20:34 Dose: 5 mg Documented by: Sodium Chloride (Normal Saline) 1,000 mls @ 999 mls/hr IV .BOLUS ONE Stop: 09/20/19 15:19 Last Admin: 09/20/19 14:20 Dose: 999 mls/hr Documented by: Ceftriaxone Sodium 1 gm/ (Sodium Chloride) 50 mls @ 100 mls/hr IV ONETIME ONE Stop: 09/20/19 15:19 Last Admin: 09/20/19 15:15 Dose: 100 mls/hr Documented by: Sodium Chloride (Normal Saline) 1,000 mls @ 75 mls/hr IV ASDIRECTED [facility] Last Admin: 09/20/19 15:24 Dose: 999 mls/hr Documented by: Azithromycin 500 mg/ Sodium (Chloride) 250 mls @ 250 mls/hr IV ONETIME ONE Stop: 09/20/19 19:07 Last Admin: 09/20/19 18:25 Dose: 250 mls/hr Documented by: Dextrose/Sodium Chloride (Dextrose 5%-1/2 Ns) 1,000 mls @ 75 mls/hr IV ASDIRECTED [facility] Last Admin: 09/21/19 11:00 Dose: 75 mls/hr Documented by: Dextrose/Sodium Chloride (Dextrose 5%-1/2 Ns) 1,000 mls @ 125 mls/hr IV ASDIRECTED [facility] Last Admin: 09/22/19 11:15 Dose: 125 mls/hr Documented by: Lorazepam (Ativan) 1 mg IVPUSH Q4H PRN PRN Reason: Agitation Last Admin: 09/22/19 11:13 Dose: 1 mg Documented by: Lorazepam (Ativan) 1 mg IVPUSH ONETIME ONE Stop: 09/22/19 13:55 Last Admin: 09/22/19 15:15 Dose: 1 mg Documented by: - Exam General: Reports: No Acute Distress HEENT: Reports: Pupils Equal, Pupils Reactive, EOMI Neck: Reports: Supple Lungs: Reports: Decreased Breath Sounds (left lower lobe) Cardiovascular: Reports: Regular Rate, Regular Rhythm GI/Abdominal Exam: Normal Bowel Sounds, Soft, Non-Tender Back Exam: Reports: Normal Inspection Extremities: Normal Inspection Skin: Reports: Other (no changes to decubitus ulcers) Neurological: Reports: No New Focal Deficit *Q Meaningful Use (DIS) - VTE *Q VTE Mechanical Contraindications *Q: Bilat Sensory Neuropathy
[2019-09-23] MEDS: Sodium Chloride 0.45% with KCl 1,000 ML IV SCH (09:44)
[2019-09-23] MEDS: QUEtiapine 25 MG Tab PO SCH (11:46)
[2019-09-23] MEDS: Aspirin 81 MG Tab.EC PO SCH (11:46)
[2019-09-23] MEDS: Haloperidol Lactate 5 MG/ML SDV IM PRN ×2 (13:03→19:34)
[2019-09-23] MEDS: cefTRIAXone 1 GM in Sodium Chloride 0.9% 50 ML IV SCH (15:28)
[2019-09-23] MEDS ORDERED: Bisacodyl 10 MG Supp RECTAL ONE (16:28)
[2019-09-23] MEDS: Azithromycin 250 MG in Sodium Chloride 0.9% 250 ML IV SCH (17:04)
[2019-09-23] MEDS: LORazepam 2 MG/ML SDV SUBCUT PRN (22:19)
[2019-09-23] MEDS: diphenhydrAMINE 50 MG/ML SDV IVPUSH PRN (22:19)
[2019-09-24] MEDS: Carbidopa/Levodopa 50-200 MG Tab.ER PO SCH ×2 (01:03→22:15)
[2019-09-24] MEDS: Haloperidol Lactate 5 MG/ML SDV IM PRN (01:19)
[2019-09-24] MEDS: CARBIDOPA LEVODOPA PO SCH ×9 (06:15→22:16)
[2019-09-24] MEDS: QUEtiapine 25 MG Tab PO SCH (07:45)
[2019-09-24] MEDS: Omeprazole 20 MG Cap.CR PO SCH (07:45)
[2019-09-24] MEDS: Aspirin 81 MG Tab.EC PO SCH (07:45)
[2019-09-24] MEDS: cefTRIAXone 1 GM in Sodium Chloride 0.9% 50 ML IV SCH (14:07)
[2019-09-24] MEDS: Azithromycin 250 MG in Sodium Chloride 0.9% 250 ML IV SCH (17:45)
[2019-09-24] MEDS: LORazepam 2 MG/ML SDV SUBCUT PRN (22:14)
[2019-09-24] MEDS: diphenhydrAMINE 50 MG/ML SDV IVPUSH PRN (22:15)
[2019-09-25] MEDS: CARBIDOPA LEVODOPA PO SCH ×7 (06:34→23:54)
[2019-09-25] MEDS: QUEtiapine 25 MG Tab PO SCH (08:40)
[2019-09-25] MEDS: Omeprazole 20 MG Cap.CR PO SCH (08:40)
[2019-09-25] MEDS: Aspirin 81 MG Tab.EC PO SCH (08:40)
--- NOTE | 2019-09-25 16:25 | PCM.PN ---
- General Info Date of Service: 09/24/19 Subjective Update: Patient appears to have declined from baseline. He has not taken in food or fluids in 4 days. Pt not taking medications or swallowing at this time. received IV antibiotics this AM but pulled IV out in the evening. Functional Status: Reports: Other (patient lying in bed, not eating or drinking) - Review of Systems General: Reports: Fever Psychiatric: Reports: Confusion, Anxiety (fever for 2 hours, then resolved without intervention), Agitation - Patient Data Vitals - Most Recent: Last Vital Signs Temp 98.9 F 09/25/19 08:31 Pulse 77 09/25/19 08:31 Resp 20 09/25/19 08:31 BP 155/50 H 09/25/19 08:31 Pulse Ox 93 L 09/25/19 08:31 Weight - Most Recent: 140 lb 11.2 oz Faheem Results Last 24 Hours: Microbiology 09/20/19 15:30 Aerobic Blood Culture - Final Blood NO GROWTH AFTER 5 DAYS Anaerobic Blood Culture - Final NO GROWTH AFTER 5 DAYS 09/20/19 14:58 Aerobic Blood Culture - Final Blood NO GROWTH AFTER 5 DAYS Anaerobic Blood Culture - Final NO GROWTH AFTER 5 DAYS Med Orders - Current: Current Medications Acetaminophen (Tylenol) 650 mg PO Q4H PRN PRN Reason: Pain (Mild 1-3)/fever Albuterol/Ipratropium (Duoneb 3.0-0.5 Mg/3 Ml) 3 ml NEB Q4H PRN PRN Reason: sob Allopurinol (Zyloprim) 100 mg PO DAILY PRN PRN Reason: pain Aspirin (Halfprin) 81 mg PO DAILY [facility] Last Admin: 09/25/19 08:40 Dose: Not Given Documented by: Carbidopa/Levodopa (Sinemet Cr 50-200 Mg) 1 tab PO DAILY@2200 [facility] Last Admin: 09/24/19 22:15 Dose: 1 tab Documented by: Diphenhydramine HCl (Benadryl) 25 mg IVPUSH BEDTIME PRN PRN Reason: Anxiety Last Admin: 09/24/19 22:15 Dose: 25 mg Documented by: Haloperidol Lactate (Haldol) 5 mg IM Q4H PRN PRN Reason: Agitation Last Admin: 09/24/19 01:19 Dose: 5 mg Documented by: Ceftriaxone Sodium 1 gm/ (Sodium Chloride) 50 mls @ 100 mls/hr IV Q24H [facility] Last Admin: 09/24/19 14:07 Dose: 100 mls/hr Documented by: Azithromycin 250 mg/ Sodium (Chloride) 250 mls @ 250 mls/hr IV Q24H [facility] Last Admin: 09/24/19 17:45 Dose: 250 mls/hr Documented by: Potassium Chloride/Sodium Chloride (1/2 Ns With 20 Meq Kcl) 1,000 mls @ 100 mls/hr IV ASDIRECTED [facility] Last Admin: 09/23/19 09:44 Dose: 100 mls/hr Documented by: Lorazepam (Ativan) 1 mg SUBCUT Q4H PRN PRN Reason: Agitation Last Admin: 09/24/19 22:14 Dose: 1 mg Documented by: [Carbidopa-Levodopa (25-250] *Pt Own Med*) 1 each PO Q2HR [facility] Last Admin: 09/25/19 14:07 Dose: Not Given Documented by: Omeprazole (Omeprazole) 20 mg PO ACBREAKFAST [facility] Last Admin: 09/25/19 08:40 Dose: Not Given Documented by: Polyethylene Glycol (Miralax) 17 gm PO DAILY PRN PRN Reason: Constipation Last Admin: 09/23/19 16:58 Dose: 17 gm Documented by: Quetiapine Fumarate (Seroquel) 25 mg PO DAILY [facility] Last Admin: 09/25/19 08:40 Dose: Not Given Documented by: Sodium Chloride (Saline Flush) 10 ml FLUSH ASDIRECTED PRN PRN Reason: Keep Vein Open Discontinued Medications Bisacodyl (Dulcolax) 10 mg RECTAL ONETIME ONE Stop: 09/23/19 16:29 Last Admin: 09/23/19 16:59 Dose: 10 mg Documented by: Carbidopa/Levodopa (Sinemet Cr 50-200 Mg) 1 tab PO BEDTIME [facility] Ceftriaxone Sodium (Rocephin) Confirm Administered Dose 1 gm .ROUTE .STK-MED ONE Stop: 09/20/19 15:01 Last Admin: 09/20/19 14:54 Dose: Not Given Documented by: Diphenhydramine HCl (Benadryl) Confirm Administered Dose 50 mg .ROUTE .STK-MED ONE Stop: 09/21/19 20:15 Last Admin: 09/22/19 06:38 Dose: Not Given Documented by: Fentanyl (Sublimaze) 25 mcg IVPUSH ONETIME ONE Stop: 09/21/19 16:26 Last Admin: 09/21/19 16:26 Dose: 25 mcg Documented by: Gabapentin (Neurontin) 100 mg PO BID [facility] Haloperidol Lactate (Haldol) Confirm Administered Dose 5 mg .ROUTE .STK-MED ONE Stop: 09/21/19 20:15 Last Admin: 09/22/19 06:36 Dose: Not Given Documented by: Haloperidol Lactate (Haldol) 5 mg IM ONETIME ONE Stop: 09/21/19 20:35 Last Admin: 09/21/19 20:34 Dose: 5 mg Documented by: Sodium Chloride (Normal Saline) 1,000 mls @ 999 mls/hr IV .BOLUS ONE Stop: 09/20/19 15:19 Last Admin: 09/20/19 14:20 Dose: 999 mls/hr Documented by: Ceftriaxone Sodium 1 gm/ (Sodium Chloride) 50 mls @ 100 mls/hr IV ONETIME ONE Stop: 09/20/19 15:19 Last Admin: 09/20/19 15:15 Dose: 100 mls/hr Documented by: Sodium Chloride (Normal Saline) 1,000 mls @ 75 mls/hr IV ASDIRECTED [facility] Last Admin: 09/20/19 15:24 Dose: 999 mls/hr Documented by: Azithromycin 500 mg/ Sodium (Chloride) 250 mls @ 250 mls/hr IV ONETIME ONE Stop: 09/20/19 19:07 Last Admin: 09/20/19 18:25 Dose: 250 mls/hr Documented by: Dextrose/Sodium Chloride (Dextrose 5%-1/2 Ns) 1,000 mls @ 75 mls/hr IV ASDIRECTED [facility] Last Admin: 09/21/19 11:00 Dose: 75 mls/hr Documented by: Dextrose/Sodium Chloride (Dextrose 5%-1/2 Ns) 1,000 mls @ 125 mls/hr IV ASDIRECTED [facility] Last Admin: 09/22/19 11:15 Dose: 125 mls/hr Documented by: Latanoprost (Xalatan 0.005% Ophth Soln) 0 ml EYELF BEDTIME [facility] Last Admin: 09/22/19 22:36 Dose: Not Given Documented by: Lorazepam (Ativan) 1 mg IVPUSH Q4H PRN PRN Reason: Agitation Last Admin: 09/22/19 11:13 Dose: 1 mg Documented by: Lorazepam (Ativan) 1 mg IVPUSH ONETIME ONE Stop: 09/22/19 13:55 Last Admin: 09/22/19 15:15 Dose: 1 mg Documented by: - Exam Quality Assessment: Skin Breakdown General: Lethargic Skin: Cool (mottling noted on LE by RN), Other Wound/Incisions: Decubitis Psy/Mental Status: Anxious, Agitated Sepsis Event Note - Evaluation Sepsis Screening Result: No Definite Risk - Focused Exam Vital Signs: Vital Signs Temp Pulse Pulse Resp BP Pulse Ox 09/25/19 08:31 98.9 F 77 20 155/50 H 93 L 09/25/19 06:02 98.3 F 72 18 120/45 L 97 Date Exam was Performed: 09/25/19 Time Exam was Performed: 16:26 - Problem List Review Problem List Initiated/Reviewed/Updated: Yes - Assessment Assessment:: See plan - Plan Plan:: Ehospitalist collaboration: 84-year-old male admitted to the emergency room for left lower lobe pneumonia, hypotension, dehydration/volume depletion. Patient presented to the ED initially unresponsive, genearlized weakness, lethargy, and hypotension with blood pressure 71/39. Patient has past medical history of Parkinson's, hypertension, chronic pain. He is also nonverbal at baseline. He lives at home with his and his son. He was found to have leukocytosis of 14. Lactic acid was 1.8. Chest x-ray left lower lobe pneumonia. COVID negative. Initial respiratory rate was 28 and he had acute hypoxic respiratory failure with O2 sat 84% on room air. Since receiving 2 L of IV fluid blood pressure is improved to 119/42. Heart rate 69. Respiratory rate 16. O2 sat 95% on 2 L nasal cannula. He has been given 1 g of Rocephin, also is receiving azithromycin. On telemedicine camera evaluation, at this time the controls for stethoscope are not working. But, I was still able to evaluate the patient over camera, no respiratory distress via video view, he was lying in bed, he is nonverbal at baseline. He appeared calm. He was cooperative. He does have a right lower leg dixon wound that has been following with wound care outpatient. We will continue Vaseline and gauze and follow-up with physical therapy wound care tomorrow. No signs of surrounding cellulitis. Abd soft for nursing palpation. Assessment and plan: Hypotension related to pneumonia, volume depletion/dehydration. Responded well to IV fluids and now resolved with blood pressure 119/42, hold his antihyperten sive medications tonite, reassess tomorrow. Continue IV fluids normal saline at 75 mL/h. Had decreased mentation on arrival to ED, but is better, now, hold Melatonin and tramadol for now. Held Gabapentin with his renal function, reassess in the am to resume to avoid withdrawal. Community-acquired pneumonia, left lower lobe,acute hypoxic resp failure: Continue Rocephin and Azithromycin. R. leg wound: continue wound care, no signs of cellulitis. Parkinson's: continue home meds. LONA on CKD, baseline cr 1.3, today 2.47, he is making urine. Avoid hypotension or nephrotoxic meds. Monitor uop and repeat renal function in the AM. K was not elevated. Please call E hospitalist with any questions.
--- NOTE | 2019-09-25 16:57 | PCM.PN ---
- General Info Date of Service: 09/25/19 Subjective Update: Patient continues to decline, has not taken meds again today and no IV antibiotics. Additional family arrived, Gabriela DAMON gave family comfort care paperwork they will reviewand discuss with Primary MD tomorrow. I called son Edilia, we discussed whether or not to replace the IV for continued antibiotics, he states he will discuss with family and call the nursing station. Patient will not swallow, family aware. Wounds continue to be dressed and assessed, gregg ssings on buttock changed today, they remain stage 2 with right measuring 1.2 x1 and 0.5 x 1.7. Left buttock has 7 open areas partial slough partial granulated, 1.5 x 1, 1.3 x 2.1, 0.3x 0.3, 1.4 x 1.5, 2x0.4, 0.2x0.4, 0.2 x 0.2 per nursing Gabriela DAMON verbal report. - Patient Data Vitals - Most Recent: Last Vital Signs Temp 98.9 F 09/25/19 08:31 Pulse 77 09/25/19 08:31 Resp 20 09/25/19 08:31 BP 155/50 H 09/25/19 08:31 Pulse Ox 93 L 09/25/19 08:31 Weight - Most Recent: 140 lb 11.2 oz Faheem Results Last 24 Hours: Microbiology 09/20/19 15:30 Aerobic Blood Culture - Final Blood NO GROWTH AFTER 5 DAYS Anaerobic Blood Culture - Final NO GROWTH AFTER 5 DAYS 09/20/19 14:58 Aerobic Blood Culture - Final Blood NO GROWTH AFTER 5 DAYS Anaerobic Blood Culture - Final NO GROWTH AFTER 5 DAYS Med Orders - Current: Current Medications Acetaminophen (Tylenol) 650 mg PO Q4H PRN PRN Reason: Pain (Mild 1-3)/fever Albuterol/Ipratropium (Duoneb 3.0-0.5 Mg/3 Ml) 3 ml NEB Q4H PRN PRN Reason: sob Allopurinol (Zyloprim) 100 mg PO DAILY PRN PRN Reason: pain Aspirin (Halfprin) 81 mg PO DAILY [facility] Last Admin: 09/25/19 08:40 Dose: Not Given Documented by: Carbidopa/Levodopa (Sinemet Cr 50-200 Mg) 1 tab PO DAILY@2200 [facility] Last Admin: 09/24/19 22:15 Dose: 1 tab Documented by: Diphenhydramine HCl (Benadryl) 25 mg IVPUSH BEDTIME PRN PRN Reason: Anxiety Last Admin: 09/24/19 22:15 Dose: 25 mg Documented by: Haloperidol Lactate (Haldol) 5 mg IM Q4H PRN PRN Reason: Agitation Last Admin: 09/24/19 01:19 Dose: 5 mg Documented by: Ceftriaxone Sodium 1 gm/ (Sodium Chloride) 50 mls @ 100 mls/hr IV Q24H [facility] Last Admin: 09/24/19 14:07 Dose: 100 mls/hr Documented by: Azithromycin 250 mg/ Sodium (Chloride) 250 mls @ 250 mls/hr IV Q24H [facility] Last Admin: 09/24/19 17:45 Dose: 250 mls/hr Documented by: Potassium Chloride/Sodium Chloride (1/2 Ns With 20 Meq Kcl) 1,000 mls @ 100 mls/hr IV ASDIRECTED [facility] Last Admin: 09/23/19 09:44 Dose: 100 mls/hr Documented by: Lorazepam (Ativan) 1 mg SUBCUT Q4H PRN PRN Reason: Agitation Last Admin: 09/24/19 22:14 Dose: 1 mg Documented by: [Carbidopa-Levodopa (25-250] *Pt Own Med*) 1 each PO Q2HR [facility] Last Admin: 09/25/19 14:07 Dose: Not Given Documented by: Omeprazole (Omeprazole) 20 mg PO ACBREAKFAST [facility] Last Admin: 09/25/19 08:40 Dose: Not Given Documented by: Polyethylene Glycol (Miralax) 17 gm PO DAILY PRN PRN Reason: Constipation Last Admin: 09/23/19 16:58 Dose: 17 gm Documented by: Quetiapine Fumarate (Seroquel) 25 mg PO DAILY [facility] Last Admin: 09/25/19 08:40 Dose: Not Given Documented by: Sodium Chloride (Saline Flush) 10 ml FLUSH ASDIRECTED PRN PRN Reason: Keep Vein Open Discontinued Medications Bisacodyl (Dulcolax) 10 mg RECTAL ONETIME ONE Stop: 09/23/19 16:29 Last Admin: 09/23/19 16:59 Dose: 10 mg Documented by: Carbidopa/Levodopa (Sinemet Cr 50-200 Mg) 1 tab PO BEDTIME [facility] Ceftriaxone Sodium (Rocephin) Confirm Administered Dose 1 gm .ROUTE .STK-MED ONE Stop: 09/20/19 15:01 Last Admin: 09/20/19 14:54 Dose: Not Given Documented by: Diphenhydramine HCl (Benadryl) Confirm Administered Dose 50 mg .ROUTE .STK-MED ONE Stop: 09/21/19 20:15 Last Admin: 09/22/19 06:38 Dose: Not Given Documented by: Fentanyl (Sublimaze) 25 mcg IVPUSH ONETIME ONE Stop: 09/21/19 16:26 Last Admin: 09/21/19 16:26 Dose: 25 mcg Documented by: Gabapentin (Neurontin) 100 mg PO BID [facility] Haloperidol Lactate (Haldol) Confirm Administered Dose 5 mg .ROUTE .STK-MED ONE Stop: 09/21/19 20:15 Last Admin: 09/22/19 06:36 Dose: Not Given Documented by: Haloperidol Lactate (Haldol) 5 mg IM ONETIME ONE Stop: 09/21/19 20:35 Last Admin: 09/21/19 20:34 Dose: 5 mg Documented by: Sodium Chloride (Normal Saline) 1,000 mls @ 999 mls/hr IV .BOLUS ONE Stop: 09/20/19 15:19 Last Admin: 09/20/19 14:20 Dose: 999 mls/hr Documented by: Ceftriaxone Sodium 1 gm/ (Sodium Chloride) 50 mls @ 100 mls/hr IV ONETIME ONE Stop: 09/20/19 15:19 Last Admin: 09/20/19 15:15 Dose: 100 mls/hr Documented by: Sodium Chloride (Normal Saline) 1,000 mls @ 75 mls/hr IV ASDIRECTED [facility] Last Admin: 09/20/19 15:24 Dose: 999 mls/hr Documented by: Azithromycin 500 mg/ Sodium (Chloride) 250 mls @ 250 mls/hr IV ONETIME ONE Stop: 09/20/19 19:07 Last Admin: 09/20/19 18:25 Dose: 250 mls/hr Documented by: Dextrose/Sodium Chloride (Dextrose 5%-1/2 Ns) 1,000 mls @ 75 mls/hr IV ASDIRECTED [facility] Last Admin: 09/21/19 11:00 Dose: 75 mls/hr Documented by: Dextrose/Sodium Chloride (Dextrose 5%-1/2 Ns) 1,000 mls @ 125 mls/hr IV ASDIRECTED [facility] Last Admin: 09/22/19 11:15 Dose: 125 mls/hr Documented by: Latanoprost (Xalatan 0.005% Ophth Soln) 0 ml EYELF BEDTIME [facility] Last Admin: 09/22/19 22:36 Dose: Not Given Documented by: Lorazepam (Ativan) 1 mg IVPUSH Q4H PRN PRN Reason: Agitation Last Admin: 09/22/19 11:13 Dose: 1 mg Documented by: Lorazepam (Ativan) 1 mg IVPUSH ONETIME ONE Stop: 09/22/19 13:55 Last Admin: 09/22/19 15:15 Dose: 1 mg Documented by: Sepsis Event Note - Evaluation Sepsis Screening Result: No Definite Risk - Focused Exam Vital Signs: Vital Signs Temp Pulse Pulse Resp BP Pulse Ox 09/25/19 08:31 98.9 F 77 20 155/50 H 93 L 09/25/19 06:02 98.3 F 72 18 120/45 L 97 Date Exam was Performed: 09/25/19 Time Exam was Performed: 16:31 - Problem List Review Problem List Initiated/Reviewed/Updated: Yes - Assessment Assessment:: See plan - Plan Plan:: Ehospitalist collaboration: 84-year-old male admitted to the emergency room for left lower lobe pneumonia, hypotension, dehydration/volume depletion. Patient presented to the ED initially unresponsive, genearlized weakness, lethargy, and hypotension with blood pressure 71/39. Patient has past medical history of Parkinson's, hypertension, chronic pain. He is also nonverbal at baseline. He lives at home with his and his son. He was found to have leukocytosis of 14. Lactic acid was 1.8. Chest x-ray left lower lobe pneumonia. COVID negative. Initial respiratory rate was 28 and he had acute hypoxic respiratory failure with O2 sat 84% on room air. Since receiving 2 L of IV fluid blood pressure is improved to 119/42. Heart rate 69. Respiratory rate 16. O2 sat 95% on 2 L nasal cannula. He has been given 1 g of Rocephin, also is receiving azithromycin. On telemedicine camera evaluation, at this time the controls for stethoscope are not working. But, I was still able to evaluate the patient over camera, no respiratory distress via video view, he was lying in bed, he is nonverbal at baseline. He appeared calm. He was cooperative. He does have a right lower leg dixon wound that has been following with wound care outpatient. We will continue Vaseline and gauze and follow-up with physical therapy wound care tomorrow. No signs of surrounding cellulitis. Abd soft for nursing palpation. Assessment and plan: Hypotension related to pneumonia, volume depletion/dehydration. Responded well to IV fluids and now resolved with blood pressure 119/42, hold his antihypertensive medications tonite, reassess tomorrow. Continue IV fluids normal saline at 75 mL/h. Had decreased mentation on arrival to ED, but is better, now, hold Melatonin and tramadol for now. Held Gabapentin with his renal function, reassess in the am to resume to avoid withdrawal. Community-acquired pneumonia, left lower lobe,acute hypoxic resp failure: Continue Rocephin and Azithromycin. R. leg wound: continue wound care, no signs of cellulitis. Parkinson's: continue home meds. LONA on CKD, baseline cr 1.3, today 2.47, he is making urine. Avoid hypotension or nephrotoxic meds. Monitor uop and repeat renal function in the AM. K was not elevated. Please call E hospitalist with any questions.
[2019-09-25] MEDS: Sodium Chloride 0.45% with KCl 1,000 ML IV SCH (20:20)
[2019-09-25] MEDS: Azithromycin 250 MG in Sodium Chloride 0.9% 250 ML IV SCH (20:21)
[2019-09-25] MEDS: cefTRIAXone 1 GM in Sodium Chloride 0.9% 50 ML IV SCH (20:21)
[2019-09-25] MEDS: Carbidopa/Levodopa 50-200 MG Tab.ER PO SCH (23:54)
[2019-09-26] MEDS: diphenhydrAMINE 50 MG/ML SDV IVPUSH PRN (02:52)
[2019-09-26] MEDS: QUEtiapine 25 MG Tab PO SCH (07:48)
[2019-09-26] MEDS: CARBIDOPA LEVODOPA PO SCH ×7 (07:48→23:10)
[2019-09-26] MEDS: Aspirin 81 MG Tab.EC PO SCH (07:48)
[2019-09-26] MEDS: Omeprazole 20 MG Cap.CR PO SCH (07:48)
--- NOTE | 2019-09-26 09:25 | PCM.PN ---
- General Info Date of Service: 09/26/19 Subjective Update: Patient has decreased responsiveness. He has not been eating and is not alert. He has been deteriorating since Thursday. We will discuss with family regarding comfort cares and management when they are available. He was changed to DNR/DNI this weekend. Functional Status: Reports: Pain Controlled. Denies: Tolerating Diet - Review of Systems General: Reports: Weakness, Other (unable to obtain ROS due to patient non- verbal and non-communicative) - Patient Data Vitals - Most Recent: Last Vital Signs Temp 36.3 C 09/26/19 08:00 Pulse 76 09/26/19 08:00 Resp 24 H 09/26/19 08:00 BP 141/63 H 09/26/19 08:00 Pulse Ox 95 09/26/19 08:00 Weight - Most Recent: 63.82 kg I&O - Last 24 Hours: Intake & Output 09/25/19 09/26/19 09/26/19 22:59 06:59 14:59 Intake Total 0 627 Balance 0 627 Faheem Results Last 24 Hours: Microbiology 09/20/19 15:30 Aerobic Blood Culture - Final Blood NO GROWTH AFTER 5 DAYS Anaerobic Blood Culture - Final NO GROWTH AFTER 5 DAYS 09/20/19 14:58 Aerobic Blood Culture - Final Blood NO GROWTH AFTER 5 DAYS Anaerobic Blood Culture - Final NO GROWTH AFTER 5 DAYS Med Orders - Current: Current Medications Acetaminophen (Tylenol) 650 mg PO Q4H PRN PRN Reason: Pain (Mild 1-3)/fever Albuterol/Ipratropium (Duoneb 3.0-0.5 Mg/3 Ml) 3 ml NEB Q4H PRN PRN Reason: sob Allopurinol (Zyloprim) 100 mg PO DAILY PRN PRN Reason: pain Aspirin (Halfprin) 81 mg PO DAILY [facility] Last Admin: 09/26/19 07:48 Dose: Not Given Documented by: Carbidopa/Levodopa (Sinemet Cr 50-200 Mg) 1 tab PO DAILY@2200 [facility] Last Admin: 09/25/19 23:54 Dose: Not Given Documented by: Diphenhydramine HCl (Benadryl) 25 mg IVPUSH BEDTIME PRN PRN Reason: Anxiety Last Admin: 09/26/19 02:52 Dose: 25 mg Documented by: Haloperidol Lactate (Haldol) 5 mg IM Q4H PRN PRN Reason: Agitation Last Admin: 09/24/19 01:19 Dose: 5 mg Documented by: Ceftriaxone Sodium 1 gm/ (Sodium Chloride) 50 mls @ 100 mls/hr IV Q24H [facility] Last Admin: 09/25/19 20:21 Dose: 100 mls/hr Documented by: Azithromycin 250 mg/ Sodium (Chloride) 250 mls @ 250 mls/hr IV Q24H [facility] Last Admin: 09/25/19 20:21 Dose: 250 mls/hr Documented by: Potassium Chloride/Sodium Chloride (1/2 Ns With 20 Meq Kcl) 1,000 mls @ 100 mls/hr IV ASDIRECTED [facility] Last Admin: 09/25/19 20:20 Dose: 100 mls/hr Documented by: Lorazepam (Ativan) 1 mg SUBCUT Q4H PRN PRN Reason: Agitation Last Admin: 09/24/19 22:14 Dose: 1 mg Documented by: [Carbidopa-Levodopa (25-250] *Pt Own Med*) 1 each PO Q2HR [facility] Last Admin: 09/26/19 07:49 Dose: Not Given Documented by: Omeprazole (Omeprazole) 20 mg PO ACBREAKFAST [facility] Last Admin: 09/26/19 07:48 Dose: Not Given Documented by: Polyethylene Glycol (Miralax) 17 gm PO DAILY PRN PRN Reason: Constipation Last Admin: 09/23/19 16:58 Dose: 17 gm Documented by: Quetiapine Fumarate (Seroquel) 25 mg PO DAILY [facility] Last Admin: 09/26/19 07:48 Dose: Not Given Documented by: Sodium Chloride (Saline Flush) 10 ml FLUSH ASDIRECTED PRN PRN Reason: Keep Vein Open Discontinued Medications Bisacodyl (Dulcolax) 10 mg RECTAL ONETIME ONE Stop: 09/23/19 16:29 Last Admin: 09/23/19 16:59 Dose: 10 mg Documented by: Carbidopa/Levodopa (Sinemet Cr 50-200 Mg) 1 tab PO BEDTIME [facility] Ceftriaxone Sodium (Rocephin) Confirm Administered Dose 1 gm .ROUTE .STK-MED ONE Stop: 09/20/19 15:01 Last Admin: 09/20/19 14:54 Dose: Not Given Documented by: Diphenhydramine HCl (Benadryl) Confirm Administered Dose 50 mg .ROUTE .STK-MED ONE Stop: 09/21/19 20:15 Last Admin: 09/22/19 06:38 Dose: Not Given Documented by: Fentanyl (Sublimaze) 25 mcg IVPUSH ONETIME ONE Stop: 09/21/19 16:26 Last Admin: 09/21/19 16:26 Dose: 25 mcg Documented by: Gabapentin (Neurontin) 100 mg PO BID [facility] Haloperidol Lactate (Haldol) Confirm Administered Dose 5 mg .ROUTE .STK-MED ONE Stop: 09/21/19 20:15 Last Admin: 09/22/19 06:36 Dose: Not Given Documented by: Haloperidol Lactate (Haldol) 5 mg IM ONETIME ONE Stop: 09/21/19 20:35 Last Admin: 09/21/19 20:34 Dose: 5 mg Documented by: Sodium Chloride (Normal Saline) 1,000 mls @ 999 mls/hr IV .BOLUS ONE Stop: 09/20/19 15:19 Last Admin: 09/20/19 14:20 Dose: 999 mls/hr Documented by: Ceftriaxone Sodium 1 gm/ (Sodium Chloride) 50 mls @ 100 mls/hr IV ONETIME ONE Stop: 09/20/19 15:19 Last Admin: 09/20/19 15:15 Dose: 100 mls/hr Documented by: Sodium Chloride (Normal Saline) 1,000 mls @ 75 mls/hr IV ASDIRECTED [facility] Last Admin: 09/20/19 15:24 Dose: 999 mls/hr Documented by: Azithromycin 500 mg/ Sodium (Chloride) 250 mls @ 250 mls/hr IV ONETIME ONE Stop: 09/20/19 19:07 Last Admin: 09/20/19 18:25 Dose: 250 mls/hr Documented by: Dextrose/Sodium Chloride (Dextrose 5%-1/2 Ns) 1,000 mls @ 75 mls/hr IV ASDIRECTED [facility] Last Admin: 09/21/19 11:00 Dose: 75 mls/hr Documented by: Dextrose/Sodium Chloride (Dextrose 5%-1/2 Ns) 1,000 mls @ 125 mls/hr IV ASDIRECTED [facility] Last Admin: 09/22/19 11:15 Dose: 125 mls/hr Documented by: Latanoprost (Xalatan 0.005% Ophth Soln) 0 ml EYELF BEDTIME [facility] Last Admin: 09/22/19 22:36 Dose: Not Given Documented by: Lorazepam (Ativan) 1 mg IVPUSH Q4H PRN PRN Reason: Agitation Last Admin: 09/22/19 11:13 Dose: 1 mg Documented by: Lorazepam (Ativan) 1 mg IVPUSH ONETIME ONE Stop: 09/22/19 13:55 Last Admin: 09/22/19 15:15 Dose: 1 mg Documented by: - Exam General: Obtunded HEENT: Pupils Equal, Pupils Reactive Neck: Supple Lungs: Decreased Breath Sounds, Rales Cardiovascular: Regular Rate, Regular Rhythm GI/Abdominal Exam: Normal Bowel Sounds, Soft, Non-Tender Extremities: Mottled Peripheral Pulses: 1+: Dorsalis Pedis (L), Dorsalis Pedis (R) Skin: Warm, Dry, Intact Wound/Incisions: Dressing Dry and Intact, Decubitis Neurological: No New Focal Deficit Sepsis Event Note - Evaluation Sepsis Screening Result: No Definite Risk - Focused Exam Vital Signs: Vital Signs Temp Pulse Resp BP Pulse Ox 09/26/19 08:00 36.3 C 76 24 H 141/63 H 95 09/26/19 04:00 36.5 C 66 16 145/48 H 95 09/26/19 00:00 36.7 C 61 18 147/51 H 96 Date Exam was Performed: 09/26/19 Time Exam was Performed: 09:19 - Problem List & Annotations (1) Severe muscle deconditioning SNOMED Code(s): 965316486 Code(s): R29.898 - OTH SYMPTOMS AND SIGNS INVOLVING THE MUSCULOSKELETAL SYSTEM Status: Acute Current Visit: Yes (2) Decubitus skin ulcer SNOMED Code(s): 882671187 Code(s): L89.90 - PRESSURE ULCER OF UNSPECIFIED SITE, UNSPECIFIED STAGE Status: Acute Current Visit: Yes (3) Pneumonia SNOMED Code(s): 922862743 Code(s): J18.9 - PNEUMONIA, UNSPECIFIED ORGANISM Status: Acute Current Visit: Yes - Problem List Review Problem List Initiated/Reviewed/Updated: Yes - My Orders Last 24 Hours: My Active Orders 09/25/19 20:44 Resuscitation Status Routine 09/26/19 08:16 CBC WITH AUTO DIFF [HEME] Routine COMPREHENSIVE METABOLIC PN,CMP [CHEM] Routine - Assessment Assessment:: See plan - Plan Plan:: Ehospitalist collaboration: 84-year-old male admitted to the emergency room for left lower lobe pneumonia, hypotension, dehydration/volume depletion. Patient presented to the ED initially unresponsive, genearlized weakness, lethargy, and hypotension with blood pressure 71/39. Patient has past medical history of Parkinson's, hypertension, chronic pain. He is also nonverbal at baseline. He lives at home with his and his son. He was found to have leukocytosis of 14. Lactic acid was 1.8. Chest x-ray left lower lobe pneumonia. COVID negative. Initial respiratory rate was 28 and he had acute hypoxic respiratory failure with O2 sat 84% on room air. Since receiving 2 L of IV fluid blood pressure is improved to 119/42. Heart rate 69. Respiratory rate 16. O2 sat 95% on 2 L nasal cannula. He has been given 1 g of Rocephin, also is receiving azithromycin. On telemedicine camera evaluation, at this time the controls for stethoscope are not working. But, I was still able to evaluate the patient over camera, no respiratory distress via video view, he was lying in bed, he is nonverbal at baseline. He appeared calm. He was cooperative. He does have a right lower leg dixon wound that has been following with wound care outpatient. We will continue Vaseline and gauze and follow-up with physical therapy wound care tomorrow. No signs of surrounding cellulitis. Abd soft for nursing palpation. Assessment and plan: Hypotension related to pneumonia, volume depletion/dehydration. Responded well to IV fluids and now resolved with blood pressure 119/42, hold his antihypertensive medications tonite, reassess tomorrow. Continue IV fluids normal saline at 75 mL/h. Had decreased mentation on arrival to ED, but is better, now, hold Melatonin and tramadol for now. Held Gabapentin with his renal function, reassess in the am to resume to avoid withdrawal. Community-acquired pneumonia, left lower lobe,acute hypoxic resp failure: Continue Rocephin and Azithromycin. R. leg wound: continue wound care, no signs of cellulitis. Parkinson's: continue home meds. LONA on CKD, baseline cr 1.3, today 2.47, he is making urine. Avoid hypotension or nephrotoxic meds. Monitor uop and repeat renal function in the AM. K was not elevated. Please call E hospitalist with any questions. 09/26/19 Decubitus ulcerations - Continue wound care and management. Dressing to be changed daily and as needed. Parkinsons - medications as tolerated - continue management if able to ingest meds. Leg wound - continue wound care and dressings. Pneumonia - finish course of IV antibiotics - resolving. Delirium - patient remains obtunded at this time. Plan of care to be discussed with family when they arrive today. May discuss comfort cares as patient was changed to DNR/DNI this weekend by provider and family. Follow up labs today for management plan.
[2019-09-26] MEDS ORDERED: Sodium Chloride 0.45% with KCl 1,000 ML IV SCH (19:15)
[2019-09-26] MEDS: cefTRIAXone 1 GM in Sodium Chloride 0.9% 50 ML IV SCH (19:42)
[2019-09-26] MEDS: Azithromycin 250 MG in Sodium Chloride 0.9% 250 ML IV SCH (20:53)
[2019-09-26] MEDS: Carbidopa/Levodopa 50-200 MG Tab.ER PO SCH (23:10)
[2019-09-27] MEDS: CARBIDOPA LEVODOPA PO SCH ×3 (06:17→23:15)
[2019-09-27] MEDS: Aspirin 81 MG Tab.EC PO SCH (07:57)
[2019-09-27] MEDS: QUEtiapine 25 MG Tab PO SCH (07:57)
[2019-09-27] MEDS: Omeprazole 20 MG Cap.CR PO SCH (07:57)
--- NOTE | 2019-09-27 17:41 | PCM.PN ---
- General Info Date of Service: 09/27/19 Subjective Update: Patient does not communicate but will open eyes and look at family or persons close and in front of him. He does react at times to family members but does not try to say anything. He does not move much but will just stare when awake. He rests most of the day but does get restless. He is turned by staff. He has not eaten for 4 days per staff and we have continued to try feeding as able to and if patient willing. Family all present today. Functional Status: Reports: Other (unable to obtain ROS) - Review of Systems General: Reports: Weakness - Patient Data Vitals - Most Recent: Last Vital Signs Temp 37.1 C 09/27/19 12:00 Pulse 58 L 09/27/19 12:00 Resp 20 09/27/19 12:00 BP 165/46 H 09/27/19 12:00 Pulse Ox 92 L 09/27/19 12:00 Weight - Most Recent: 63.503 kg I&O - Last 24 Hours: Intake & Output 09/27/19 09/27/19 09/27/19 06:59 14:59 22:59 Intake Total 1202 Balance 1202 Lab Results Last 24 Hours: Laboratory Results - last 24 hr 09/23/19 09/27/19 09/27/19 Range/Units 07:25 10:15 10:15 WBC 13.6 H D (4.0-11.0) K/uL RBC 2.92 L (4.50-6.50) M/uL Hgb 9.7 L (13.0-18.0) g/dL Hct 30.2 L (40.0-54.0) % MCV 103 H (76-96) fL MCH 33.2 H (27.0-32.0) pg MCHC 32.1 (31.0-35.0) g/dL RDW 14.0 (11.0-16.0) % Plt Count 360 (150-400) K/uL MPV 8.8 (6.0-10.0) fL Neut % (Auto) 84.4 H (45.0-70.0) % Lymph % (Auto) 10.0 L (20.0-40.0) % [place] % (Auto) 5.2 (3.0-10.0) % Eos % (Auto) 0.3 L (1.0-5.0) % Baso % (Auto) 0.1 (0.0-0.5) % Neut # (Auto) 11.47 H (2.00-7.50) K/uL Lymph # (Auto) 1.36 L (1.50-4.00) K/uL [place] # (Auto) 0.71 (0.20-0.80) K/uL Eos # (Auto) 0.04 (0.04-0.40) K/uL Baso # (Auto) 0.02 (0.02-0.10) K/uL Sodium 153 H (136-145) mmol/L Potassium 3.9 (3.5-5.1) mmol/L Chloride 117 H (98-107) mmol/L Carbon Dioxide 22.6 (21.0-32.0) mmol/L Anion Gap 17.3 H (5.0-15.0) mmol/L BUN 21 (8-26) mg/dL Creatinine 0.79 (0.70-1.30) mg/dL Est Cr Clr Drug Dosing 60.29 mL/min Estimated GFR (MDRD) > 60 (>60) MLS/MIN BUN/Creatinine Ratio 26.6 H (6-25) Glucose 85 (74-100) mg/dL Calcium 8.3 L (8.5-10.1) mg/dL Free T4 Direct 1.26 (0.82-1.77) ng/dL Med Orders - Current: Current Medications Diphenhydramine HCl (Benadryl) 25 mg IVPUSH BEDTIME PRN PRN Reason: Anxiety Last Admin: 09/26/19 02:52 Dose: 25 mg Documented by: Haloperidol Lactate (Haldol) 5 mg IM Q4H PRN PRN Reason: Agitation Last Admin: 09/24/19 01:19 Dose: 5 mg Documented by: Lorazepam (Ativan) 1 mg SUBCUT Q4H PRN PRN Reason: Agitation Last Admin: 09/24/19 22:14 Dose: 1 mg Documented by: Sodium Chloride (Saline Flush) 10 ml FLUSH BID [facility] Discontinued Medications Acetaminophen (Tylenol) 650 mg PO Q4H PRN PRN Reason: Pain (Mild 1-3)/fever Albuterol/Ipratropium (Duoneb 3.0-0.5 Mg/3 Ml) 3 ml NEB Q4H PRN PRN Reason: sob Allopurinol (Zyloprim) 100 mg PO DAILY PRN PRN Reason: pain Aspirin (Halfprin) 81 mg PO DAILY [facility] Last Admin: 09/27/19 07:57 Dose: Not Given Documented by: Bisacodyl (Dulcolax) 10 mg RECTAL ONETIME ONE Stop: 09/23/19 16:29 Last Admin: 09/23/19 16:59 Dose: 10 mg Documented by: Carbidopa/Levodopa (Sinemet Cr 50-200 Mg) 1 tab PO BEDTIME [facility] Carbidopa/Levodopa (Sinemet Cr 50-200 Mg) 1 tab PO DAILY@2200 [facility] Last Admin: 09/26/19 23:10 Dose: Not Given Documented by: Ceftriaxone Sodium (Rocephin) Confirm Administered Dose 1 gm .ROUTE .STK-MED ONE Stop: 09/20/19 15:01 Last Admin: 09/20/19 14:54 Dose: Not Given Documented by: Diphenhydramine HCl (Benadryl) Confirm Administered Dose 50 mg .ROUTE .STK-MED ONE Stop: 09/21/19 20:15 Last Admin: 09/22/19 06:38 Dose: Not Given Documented by: Fentanyl (Sublimaze) 25 mcg IVPUSH ONETIME ONE Stop: 09/21/19 16:26 Last Admin: 09/21/19 16:26 Dose: 25 mcg Documented by: Gabapentin (Neurontin) 100 mg PO BID [facility] Haloperidol Lactate (Haldol) Confirm Administered Dose 5 mg .ROUTE .STK-MED ONE Stop: 09/21/19 20:15 Last Admin: 09/22/19 06:36 Dose: Not Given Documented by: Haloperidol Lactate (Haldol) 5 mg IM ONETIME ONE Stop: 09/21/19 20:35 Last Admin: 09/21/19 20:34 Dose: 5 mg Documented by: Sodium Chloride (Normal Saline) 1,000 mls @ 999 mls/hr IV .BOLUS ONE Stop: 09/20/19 15:19 Last Admin: 09/20/19 14:20 Dose: 999 mls/hr Documented by: Ceftriaxone Sodium 1 gm/ (Sodium Chloride) 50 mls @ 100 mls/hr IV ONETIME ONE Stop: 09/20/19 15:19 Last Admin: 09/20/19 15:15 Dose: 100 mls/hr Documented by: Sodium Chloride (Normal Saline) 1,000 mls @ 75 mls/hr IV ASDIRECTED [facility] Last Admin: 09/20/19 15:24 Dose: 999 mls/hr Documented by: Azithromycin 500 mg/ Sodium (Chloride) 250 mls @ 250 mls/hr IV ONETIME ONE Stop: 09/20/19 19:07 Last Admin: 09/20/19 18:25 Dose: 250 mls/hr Documented by: Ceftriaxone Sodium 1 gm/ (Sodium Chloride) 50 mls @ 100 mls/hr IV Q24H [facility] Last Admin: 09/26/19 19:42 Dose: 100 mls/hr Documented by: Azithromycin 250 mg/ Sodium (Chloride) 250 mls @ 250 mls/hr IV Q24H [facility] Last Admin: 09/26/19 20:53 Dose: 250 mls/hr Documented by: Dextrose/Sodium Chloride (Dextrose 5%-1/2 Ns) 1,000 mls @ 75 mls/hr IV ASDIRECTED [facility] Last Admin: 09/21/19 11:00 Dose: 75 mls/hr Documented by: Dextrose/Sodium Chloride (Dextrose 5%-1/2 Ns) 1,000 mls @ 125 mls/hr IV ASDIRECTED [facility] Last Admin: 09/22/19 11:15 Dose: 125 mls/hr Documented by: Potassium Chloride/Sodium Chloride (1/2 Ns With 20 Meq Kcl) 1,000 mls @ 100 mls/hr IV ASDIRECTED [facility] Last Admin: 09/25/19 20:20 Dose: 100 mls/hr Documented by: Potassium Chloride/Sodium Chloride (1/2 Ns With 20 Meq Kcl) 1,000 mls @ 75 mls/hr IV ASDIRECTED [facility] Last Admin: 09/26/19 18:30 Dose: 75 mls/hr Documented by: Latanoprost (Xalatan 0.005% Oph Soln) 0 ml EYELF BEDTIME [facility] Last Admin: 09/22/19 22:36 Dose: Not Given Documented by: Lorazepam (Ativan) 1 mg IVPUSH Q4H PRN PRN Reason: Agitation Last Admin: 09/22/19 11:13 Dose: 1 mg Documented by: Lorazepam (Ativan) 1 mg IVPUSH ONETIME ONE Stop: 09/22/19 13:55 Last Admin: 09/22/19 15:15 Dose: 1 mg Documented by: [Carbidopa-Levodopa (25-250] *Pt Own Med*) 1 each PO Q2HR [facility] Last Admin: 09/27/19 07:57 Dose: Not Given Documented by: Omeprazole (Omeprazole) 20 mg PO ACBREAKFAST [facility] Last Admin: 09/27/19 07:57 Dose: Not Given Documented by: Polyethylene Glycol (Miralax) 17 gm PO DAILY PRN PRN Reason: Constipation Last Admin: 09/23/19 16:58 Dose: 17 gm Documented by: Quetiapine Fumarate (Seroquel) 25 mg PO DAILY [facility] Last Admin: 09/27/19 07:57 Dose: Not Given Documented by: Sodium Chloride (Saline Flush) 10 ml FLUSH ASDIRECTED PRN PRN Reason: Keep Vein Open Last Admin: 09/26/19 18:33 Dose: 10 ml Documented by: - Exam General: Obtunded HEENT: Pupils Equal, Pupils Reactive, EOMI Neck: Supple Lungs: Decreased Breath Sounds, Rales Cardiovascular: Regular Rate, Regular Rhythm GI/Abdominal Exam: Soft, Non-Tender, Abnormal Bowel Sounds (decreased Bowel sounds) Back Exam: Normal Inspection Extremities: Mottled Sepsis Event Note - Evaluation Sepsis Screening Result: No Definite Risk - Focused Exam Vital Signs: Vital Signs Temp Pulse Resp BP Pulse Ox 09/27/19 12:00 37.1 C 58 L 20 165/46 H 92 L 09/27/19 07:39 37.1 C 67 20 170/76 H 92 L - Problem List & Annotations (1) Severe muscle deconditioning SNOMED Code(s): 361007369 Code(s): R29.898 - OTH SYMPTOMS AND SIGNS INVOLVING THE MUSCULOSKELETAL SYSTEM Status: Acute Current Visit: Yes (2) Decubitus skin ulcer SNOMED Code(s): 636906148 Code(s): L89.90 - PRESSURE ULCER OF UNSPECIFIED SITE, UNSPECIFIED STAGE Status: Acute Current Visit: Yes (3) Pneumonia SNOMED Code(s): 784533881 Code(s): J18.9 - PNEUMONIA, UNSPECIFIED ORGANISM Status: Acute Current Visit: Yes (4) Comfort measures only status SNOMED Code(s): 02892513935470 Code(s): Z51.5 - ENCOUNTER FOR PALLIATIVE CARE Status: Acute Current Visit: Yes - Problem List Review Problem List Initiated/Reviewed/Updated: Yes - My Orders Last 24 Hours: My Active Orders 09/27/19 20:00 Sodium Chloride 0.9% [Saline Flush] 10 ml FLUSH BID - Assessment Assessment:: See plan - Plan Plan:: Ehospitalist collaboration: 84-year-old male admitted to the emergency room for left lower lobe pneumonia, hypotension, dehydration/volume depletion. Patient presented to the ED initially unresponsive, genearlized weakness, lethargy, and hypotension with blood pressure 71/39. Patient has past medical history of Parkinson's, hypertension, chronic pain. He is also nonverbal at baseline. He lives at home with his and his son. He was found to have leukocytosis of 14. Lactic acid was 1.8. Chest x-ray left lower lobe pneumonia. COVID negative. Initial respiratory rate was 28 and he had acute hypoxic respiratory failure with O2 sat 84% on room air. Since receiving 2 L of IV fluid blood pressure is improved to 119/42. Heart rate 69. Respiratory rate 16. O2 sat 95% on 2 L nasal cannula. He has been given 1 g of Rocephin, also is receiving azithromycin. On telemedicine camera evaluation, at this time the controls for stethoscope are not working. But, I was still able to evaluate the patient over camera, no respiratory distress via video view, he was lying in bed, he is nonverbal at baseline. He appeared calm. He was cooperative. He does have a right lower leg dixon wound that has been following with wound care outpatient. We will con tinue Vaseline and gauze and follow-up with physical therapy wound care tomorrow. No signs of surrounding cellulitis. Abd soft for nursing palpation. Assessment and plan: Hypotension related to pneumonia, volume depletion/dehydration. Responded well to IV fluids and now resolved with blood pressure 119/42, hold his antihypertensive medications tonite, reassess tomorrow. Continue IV fluids norm al saline at 75 mL/h. Had decreased mentation on arrival to ED, but is better, now, hold Melatonin and tramadol for now. Held Gabapentin with his renal function, reassess in the am to resume to avoid withdrawal. Community-acquired pneumonia, left lower lobe,acute hypoxic resp failure: Continue Rocephin and Azithromycin. R. leg wound: continue wound care, no signs of cellulitis. Parkinson's: continue home meds. LONA on CKD, baseline cr 1.3, today 2.47, he is making urine. Avoid hypotension or nephrotoxic meds. Monitor uop and repeat renal function in the AM. K was not elevated. Please call E hospitalist with any questions. 09/26/19 Decubitus ulcerations - Continue wound care and management. Dressing to be changed daily and as needed. Parkinsons - medications as tolerated - continue management if able to ingest meds. Leg wound - continue wound care and dressings. Pneumonia - finish course of IV antibiotics - resolving. Delirium - patient remains obtunded at this time. Plan of care to be discussed with family when they arrive today. May discuss comfort cares as patient was changed to DNR/DNI this weekend by provider and family. Follow up labs today for management plan. 09/27/19 - Patient placed into comfort cares. Discussed with family regarding plan of care and all are present and in agreement with comfort cares. DC all oral meds. We can initiate hospice medications as needed. Family to be present per protocols.
[2019-09-27] MEDS ORDERED: Sodium Chloride 0.9% 10 ML Syringe FLUSH SCH (20:00)
--- NOTE | 2019-09-28 15:11 | PCM.PN ---
- General Info Date of Service: 09/28/19 Subjective Update: Patient resting comfortably with family at bedside. He is not in any distress and breathing normally with eyes open and awake. No issues over night. Functional Status: Reports: Other (unable to obtain ROS) - Review of Systems General: Reports: Weakness, Fatigue HEENT: Reports: No Symptoms - Patient Data Vitals - Most Recent: Last Vital Signs Temp 36.8 C 09/28/19 08:00 Pulse 65 09/28/19 08:00 Resp 20 09/28/19 08:00 BP 156/52 H 09/28/19 08:00 Pulse Ox 98 09/28/19 08:00 Weight - Most Recent: 63.503 kg Med Orders - Current: Current Medications Diphenhydramine HCl (Benadryl) 25 mg IVPUSH BEDTIME PRN PRN Reason: Anxiety Last Admin: 09/26/19 02:52 Dose: 25 mg Documented by: Haloperidol Lactate (Haldol) 5 mg IM Q4H PRN PRN Reason: Agitation Last Admin: 09/24/19 01:19 Dose: 5 mg Documented by: Lorazepam (Ativan) 1 mg SUBCUT Q4H PRN PRN Reason: Agitation Last Admin: 09/24/19 22:14 Dose: 1 mg Documented by: Discontinued Medications Acetaminophen (Tylenol) 650 mg PO Q4H PRN PRN Reason: Pain (Mild 1-3)/fever Albuterol/Ipratropium (Duoneb 3.0-0.5 Mg/3 Ml) 3 ml NEB Q4H PRN PRN Reason: sob Allopurinol (Zyloprim) 100 mg PO DAILY PRN PRN Reason: pain Aspirin (Halfprin) 81 mg PO DAILY [facility] Last Admin: 09/27/19 07:57 Dose: Not Given Documented by: Bisacodyl (Dulcolax) 10 mg RECTAL ONETIME ONE Stop: 09/23/19 16:29 Last Admin: 09/23/19 16:59 Dose: 10 mg Documented by: Carbidopa/Levodopa (Sinemet Cr 50-200 Mg) 1 tab PO BEDTIME [facility] Carbidopa/Levodopa (Sinemet Cr 50-200 Mg) 1 tab PO DAILY@2200 [facility] Last Admin: 09/26/19 23:10 Dose: Not Given Documented by: Ceftriaxone Sodium (Rocephin) Confirm Administered Dose 1 gm .ROUTE .STK-MED ONE Stop: 09/20/19 15:01 Last Admin: 09/20/19 14:54 Dose: Not Given Documented by: Diphenhydramine HCl (Benadryl) Confirm Administered Dose 50 mg .ROUTE .STK-MED ONE Stop: 09/21/19 20:15 Last Admin: 09/22/19 06:38 Dose: Not Given Documented by: Fentanyl (Sublimaze) 25 mcg IVPUSH ONETIME ONE Stop: 09/21/19 16:26 Last Admin: 09/21/19 16:26 Dose: 25 mcg Documented by: Gabapentin (Neurontin) 100 mg PO BID [facility] Haloperidol Lactate (Haldol) Confirm Administered Dose 5 mg .ROUTE .STK-MED ONE Stop: 09/21/19 20:15 Last Admin: 09/22/19 06:36 Dose: Not Given Documented by: Haloperidol Lactate (Haldol) 5 mg IM ONETIME ONE Stop: 09/21/19 20:35 Last Admin: 09/21/19 20:34 Dose: 5 mg Documented by: Sodium Chloride (Normal Saline) 1,000 mls @ 999 mls/hr IV .BOLUS ONE Stop: 09/20/19 15:19 Last Admin: 09/20/19 14:20 Dose: 999 mls/hr Documented by: Ceftriaxone Sodium 1 gm/ (Sodium Chloride) 50 mls @ 100 mls/hr IV ONETIME ONE Stop: 09/20/19 15:19 Last Admin: 09/20/19 15:15 Dose: 100 mls/hr Documented by: Sodium Chloride (Normal Saline) 1,000 mls @ 75 mls/hr IV ASDIRECTED [facility] Last Admin: 09/20/19 15:24 Dose: 999 mls/hr Documented by: Azithromycin 500 mg/ Sodium (Chloride) 250 mls @ 250 mls/hr IV ONETIME ONE Stop: 09/20/19 19:07 Last Admin: 09/20/19 18:25 Dose: 250 mls/hr Documented by: Ceftriaxone Sodium 1 gm/ (Sodium Chloride) 50 mls @ 100 mls/hr IV Q24H [facility] Last Admin: 09/26/19 19:42 Dose: 100 mls/hr Documented by: Azithromycin 250 mg/ Sodium (Chloride) 250 mls @ 250 mls/hr IV Q24H [facility] Last Admin: 09/26/19 20:53 Dose: 250 mls/hr Documented by: Dextrose/Sodium Chloride (Dextrose 5%-1/2 Ns) 1,000 mls @ 75 mls/hr IV ASDIRECTED [facility] Last Admin: 09/21/19 11:00 Dose: 75 mls/hr Documented by: Dextrose/Sodium Chloride (Dextrose 5%-1/2 Ns) 1,000 mls @ 125 mls/hr IV ASDIRECTED [facility] Last Admin: 09/22/19 11:15 Dose: 125 mls/hr Documented by: Potassium Chloride/Sodium Chloride (1/2 Ns With 20 Meq Kcl) 1,000 mls @ 100 mls/hr IV ASDIRECTED [facility] Last Admin: 09/25/19 20:20 Dose: 100 mls/hr Documented by: Potassium Chloride/Sodium Chloride (1/2 Ns With 20 Meq Kcl) 1,000 mls @ 75 mls/hr IV ASDIRECTED [facility] Last Admin: 09/26/19 18:30 Dose: 75 mls/hr Documented by: Latanoprost (Xalatan 0.005% Ophth Soln) 0 ml EYELF BEDTIME [facility] Last Admin: 09/22/19 22:36 Dose: Not Given Documented by: Lorazepam (Ativan) 1 mg IVPUSH Q4H PRN PRN Reason: Agitation Last Admin: 09/22/19 11:13 Dose: 1 mg Documented by: Lorazepam (Ativan) 1 mg IVPUSH ONETIME ONE Stop: 09/22/19 13:55 Last Admin: 09/22/19 15:15 Dose: 1 mg Documented by: [Carbidopa-Levodopa (25-250] *Pt Own Med*) 1 each PO Q2HR [facility] Last Admin: 09/27/19 23:15 Dose: Not Given Documented by: Omeprazole (Omeprazole) 20 mg PO ACBREAKFAST [facility] Last Admin: 09/27/19 07:57 Dose: Not Given Documented by: Polyethylene Glycol (Miralax) 17 gm PO DAILY PRN PRN Reason: Constipation Last Admin: 09/23/19 16:58 Dose: 17 gm Documented by: Quetiapine Fumarate (Seroquel) 25 mg PO DAILY [facility] Last Admin: 09/27/19 07:57 Dose: Not Given Documented by: Sodium Chloride (Saline Flush) 10 ml FLUSH ASDIRECTED PRN PRN Reason: Keep Vein Open Last Admin: 09/26/19 18:33 Dose: 10 ml Documented by: Sodium Chloride (Saline Flush) 10 ml FLUSH BID [facility] Last Admin: 09/27/19 20:40 Dose: Not Given Documented by: - Exam General: Obtunded HEENT: Pupils Equal, Pupils Reactive, EOMI Neck: Supple Lungs: Normal Respiratory Effort, Decreased Breath Sounds, Rales Cardiovascular: Regular Rate, Regular Rhythm GI/Abdominal Exam: Abnormal Bowel Sounds (decreased) Extremities: Normal Inspection Sepsis Event Note - Evaluation Sepsis Screening Result: No Definite Risk - Focused Exam Vital Signs: Vital Signs Temp Pulse Resp BP Pulse Ox 09/28/19 08:00 36.8 C 65 20 156/52 H 98 - Problem List & Annotations (1) Severe muscle deconditioning SNOMED Code(s): 843442143 Code(s): R29.898 - OTH SYMPTOMS AND SIGNS INVOLVING THE MUSCULOSKELETAL S YSTEM Status: Acute Current Visit: Yes (2) Decubitus skin ulcer SNOMED Code(s): 986158715 Code(s): L89.90 - PRESSURE ULCER OF UNSPECIFIED SITE, UNSPECIFIED STAGE Status: Acute Current Visit: Yes (3) Pneumonia SNOMED Code(s): 691199054 Code(s): J18.9 - PNEUMONIA, UNSPECIFIED ORGANISM Status: Acute Current Visit: Yes (4) Comfort measures only status SNOMED Code(s): 34464208054011 Code(s): Z51.5 - ENCOUNTER FOR PALLIATIVE CARE Status: Acute Current Visit: Yes - Problem List Review Problem List Initiated/Reviewed/Updated: Yes - My Orders Last 24 Hours: My Active Orders 09/27/19 18:24 Resuscitation Status Routine - Assessment Assessment:: See plan - Plan Plan:: Ehospitalist collaboration: 84-year-old male admitted to the emergency room for left lower lobe pneumonia, hypotension, dehydration/volume depletion. Patient presented to the ED initially unresponsive, genearlized weakness, lethargy, and hypotension with blood pressure 71/39. Patient has past medical history of Parkinson's, hypertension, chronic pain. He is also nonverbal at baseline. He lives at home with his and his son. He was found to have leukocytosis of 14. Lactic acid was 1.8. Chest x-ray left lower lobe pneumonia . COVID negative. Initial respiratory rate was 28 and he had acute hypoxic respiratory failure with O2 sat 84% on room air. Since receiving 2 L of IV fluid blood pressure is improved to 119/42. Heart rate 69. Respiratory rate 16. O2 sat 95% on 2 L nasal cannula. He has been given 1 g of Rocephin, also is receiving azithromycin. On telemedicine camera evaluation, at this time the controls for stethoscope are not working. But, I was still able to evaluate the patient over camera, no respiratory distress via video view, he was lying in bed, he is nonverbal at baseline. He appeared calm. He was cooperative. He does have a right lower leg dixon wound that has been following with wound care outpatient. We will continue Vaseline and gauze and follow-up with physical therapy wound care tomorrow. No signs of surrounding cellulitis. Abd soft for nursing palpation. Assessment and plan: Hypotension related to pneumonia, volume depletion/dehydration. Responded well to IV fluids and now resolved with blood pressure 119/42, hold his antihypertensive medications tonite, reassess tomorrow. Continue IV fluids normal saline at 75 mL/h. Had decreased mentation on arrival to ED, but is better, now, hold Melatonin and tramadol for now. Held Gabapentin with his renal function, reassess in the am to resume to avoid withdrawal. Community-acquired pneumonia, left lower lobe,acute hypoxic resp failure: Continue Rocephin and Azithromycin. R. leg wound: continue wound care, no signs of cellulitis. Parkinson's: continue home meds. LONA on CKD, baseline cr 1.3, today 2.47, he is making urine. Avoid hypotension or nephrotoxic meds. Monitor uop and repeat renal function in the AM. K was not elevated. Please call E hospitalist with any questions. 09/26/19 Decubitus ulcerations - Continue wound care and management. Dressing to be changed daily and as needed. Parkinsons - medications as tolerated - continue management if able to ingest meds. Leg wound - continue wound care and dressings. Pneumonia - finish course of IV antibiotics - resolving. Delirium - patient remains obtunded at this time. Plan of care to be discussed with family when they arrive today. May discuss comfort cares as patient was changed to DNR/DNI this weekend by provider and family. Follow up labs today for management plan. 09/27/19 - Patient placed into comfort cares. Discussed with family regarding plan of care and all are present and in agreement with comfort cares. DC all oral meds. We can initiate hospice medications as needed. Family to be present per protocols. 09/28/19 - Patient has no changes in comfort cares. Continue current management.
--- NOTE | 2019-09-29 08:06 | PCM.PN ---
- General Info Date of Service: 09/29/19 Subjective Update: Patient continues to remain weak, not eating but does respond to family at times when they are present. He will try to grasp 's hand. Functional Status: Reports: Other (Patient on comfort cares. ) - Review of Systems General: Reports: Weakness - Patient Data Vitals - Most Recent: Last Vital Signs Temp 36.4 C 09/28/19 20:00 Pulse 68 09/28/19 20:00 Resp 20 09/28/19 20:00 BP 168/61 H 09/28/19 20:00 Pulse Ox 96 09/28/19 20:00 Weight - Most Recent: 63.503 kg Med Orders - Current: Current Medications Diphenhydramine HCl (Benadryl) 25 mg IVPUSH BEDTIME PRN PRN Reason: Anxiety Last Admin: 09/26/19 02:52 Dose: 25 mg Documented by: Haloperidol Lactate (Haldol) 5 mg IM Q4H PRN PRN Reason: Agitation Last Admin: 09/24/19 01:19 Dose: 5 mg Documented by: Lorazepam (Ativan) 1 mg SUBCUT Q4H PRN PRN Reason: Agitation Last Admin: 09/24/19 22:14 Dose: 1 mg Documented by: Discontinued Medications Acetaminophen (Tylenol) 650 mg PO Q4H PRN PRN Reason: Pain (Mild 1-3)/fever Albuterol/Ipratropium (Duoneb 3.0-0.5 Mg/3 Ml) 3 ml NEB Q4H PRN PRN Reason: sob Allopurinol (Zyloprim) 100 mg PO DAILY PRN PRN Reason: pain Aspirin (Halfprin) 81 mg PO DAILY [facility] Last Admin: 09/27/19 07:57 Dose: Not Given Documented by: Bisacodyl (Dulcolax) 10 mg RECTAL ONETIME ONE Stop: 09/23/19 16:29 Last Admin: 09/23/19 16:59 Dose: 10 mg Documented by: Carbidopa/Levodopa (Sinemet Cr 50-200 Mg) 1 tab PO BEDTIME [facility] Carbidopa/Levodopa (Sinemet Cr 50-200 Mg) 1 tab PO DAILY@2200 [facility] Last Admin: 09/26/19 23:10 Dose: Not Given Documented by: Ceftriaxone Sodium (Rocephin) Confirm Administered Dose 1 gm .ROUTE .ST-MED ONE Stop: 09/20/19 15:01 Last Admin: 09/20/19 14:54 Dose: Not Given Documented by: Diphenhydramine HCl (Benadryl) Confirm Administered Dose 50 mg .ROUTE .STK-MED ONE Stop: 09/21/19 20:15 Last Admin: 09/22/19 06:38 Dose: Not Given Documented by: Fentanyl (Sublimaze) 25 mcg IVPUSH ONETIME ONE Stop: 09/21/19 16:26 Last Admin: 09/21/19 16:26 Dose: 25 mcg Documented by: Gabapentin (Neurontin) 100 mg PO BID [facility] Haloperidol Lactate (Haldol) Confirm Administered Dose 5 mg .ROUTE .STK-MED ONE Stop: 09/21/19 20:15 Last Admin: 09/22/19 06:36 Dose: Not Given Documented by: Haloperidol Lactate (Haldol) 5 mg IM ONETIME ONE Stop: 09/21/19 20:35 Last Admin: 09/21/19 20:34 Dose: 5 mg Documented by: Sodium Chloride (Normal Saline) 1,000 mls @ 999 mls/hr IV .BOLUS ONE Stop: 09/20/19 15:19 Last Admin: 09/20/19 14:20 Dose: 999 mls/hr Documented by: Ceftriaxone Sodium 1 gm/ (Sodium Chloride) 50 mls @ 100 mls/hr IV ONETIME ONE Stop: 09/20/19 15:19 Last Admin: 09/20/19 15:15 Dose: 100 mls/hr Documented by: Sodium Chloride (Normal Saline) 1,000 mls @ 75 mls/hr IV ASDIRECTED [facility] Last Admin: 09/20/19 15:24 Dose: 999 mls/hr Documented by: Azithromycin 500 mg/ Sodium (Chloride) 250 mls @ 250 mls/hr IV ONETIME ONE Stop: 09/20/19 19:07 Last Admin: 09/20/19 18:25 Dose: 250 mls/hr Documented by: Ceftriaxone Sodium 1 gm/ (Sodium Chloride) 50 mls @ 100 mls/hr IV Q24H [facility] Last Admin: 09/26/19 19:42 Dose: 100 mls/hr Documented by: Azithromycin 250 mg/ Sodium (Chloride) 250 mls @ 250 mls/hr IV Q24H [facility] Last Admin: 09/26/19 20:53 Dose: 250 mls/hr Documented by: Dextrose/Sodium Chloride (Dextrose 5%-1/2 Ns) 1,000 mls @ 75 mls/hr IV ASDIRECTED [facility] Last Admin: 09/21/19 11:00 Dose: 75 mls/hr Documented by: Dextrose/Sodium Chloride (Dextrose 5%-1/2 Ns) 1,000 mls @ 125 mls/hr IV ASDIRECTED [facility] Last Admin: 09/22/19 11:15 Dose: 125 mls/hr Documented by: Potassium Chloride/Sodium Chloride (1/2 Ns With 20 Meq Kcl) 1,000 mls @ 100 mls/hr IV ASDIRECTED [facility] Last Admin: 09/25/19 20:20 Dose: 100 mls/hr Documented by: Potassium Chloride/Sodium Chloride (1/2 Ns With 20 Meq Kcl) 1,000 mls @ 75 mls/hr IV ASDIRECTED [facility] Last Admin: 09/26/19 18:30 Dose: 75 mls/hr Documented by: Latanoprost (Xalatan 0.005% Oph Soln) 0 ml EYELF BEDTIME [facility] Last Admin: 09/22/19 22:36 Dose: Not Given Documented by: Lorazepam (Ativan) 1 mg IVPUSH Q4H PRN PRN Reason: Agitation Last Admin: 09/22/19 11:13 Dose: 1 mg Documented by: Lorazepam (Ativan) 1 mg IVPUSH ONETIME ONE Stop: 09/22/19 13:55 Last Admin: 09/22/19 15:15 Dose: 1 mg Documented by: [Carbidopa-Levodopa (25-250] *Pt Own Med*) 1 each PO Q2HR [facility] Last Admin: 09/27/19 23:15 Dose: Not Given Documented by: Omeprazole (Omeprazole) 20 mg PO ACBREAKFAST [facility] Last Admin: 09/27/19 07:57 Dose: Not Given Documented by: Polyethylene Glycol (Miralax) 17 gm PO DAILY PRN PRN Reason: Constipation Last Admin: 09/23/19 16:58 Dose: 17 gm Documented by: Quetiapine Fumarate (Seroquel) 25 mg PO DAILY [facility] Last Admin: 09/27/19 07:57 Dose: Not Given Documented by: Sodium Chloride (Saline Flush) 10 ml FLUSH ASDIRECTED PRN PRN Reason: Keep Vein Open Last Admin: 09/26/19 18:33 Dose: 10 ml Documented by: Sodium Chloride (Saline Flush) 10 ml FLUSH BID [facility] Last Admin: 09/27/19 20:40 Dose: Not Given Documented by: - Exam General: Lethargic (limited response to verbal communication, some response to touch, does respond to family minimally) Sepsis Event Note - Evaluation Sepsis Screening Result: No Definite Risk - Problem List & Annotations (1) Severe muscle deconditioning SNOMED Code(s): 093475613 Code(s): R29.898 - OT SYMPTOMS AND SIGNS INVOLVING THE MUSCULOSKELETAL SYSTEM Status: Acute Current Visit: Yes (2) Decubitus skin ulcer SNOMED Code(s): 941007076 Code(s): L89.90 - PRESSURE ULCER OF UNSPECIFIED SITE, UNSPECIFIED STAGE Status: Acute Current Visit: Yes (3) Pneumonia SNOMED Code(s): 529818320 Code(s): J18.9 - PNEUMONIA, UNSPECIFIED ORGANISM Status: Acute Current Visit: Yes (4) Comfort measures only status SNOMED Code(s): 67340764070885 Code(s): Z51.5 - ENCOUNTER FOR PALLIATIVE CARE Status: Acute Priority: High Current Visit: Yes - Problem List Review Problem List Initiated/Reviewed/Updated: Yes - Assessment Assessment:: See plan - Plan Plan:: Ehospitalist collaboration: 84-year-old male admitted to the emergency room for left lower lobe pneumonia, hypotension, dehydration/volume depletion. Patient presented to the ED initially unresponsive, genearlized weakness, lethargy, and hypotension with blood pressure 71/39. Patient has past medical history of Parkinson's, hypertension, chronic pain. He is also nonverbal at baseline. He lives at home with his and his son. He was found to have leukocytosis of 14. Lactic acid was 1.8. Chest x-ray left lower lobe pneumonia. COVID negative. Initial respiratory rate was 28 and he had acute hypoxic respiratory failure with O2 sat 84% on room air. Since receiving 2 L of IV fluid blood pressure is improved to 119/42. Heart rate 69. Respiratory rate 16. O2 sat 95% on 2 L nasal cannula. He has been given 1 g of Rocephin, also is receiving azithromycin. On telemedicine camera evaluation, at this time the controls for stethoscope are not working. But, I was still able to evaluate the patient over camera, no respiratory distress via video view, he was lying in bed, he is nonverbal at baseline. He appeared calm. He was cooperative. He does have a right lower leg dixon wound that has been following with wound care outpatient. We will continue Vaseline and gauze and follow-up with physical therapy wound care tomorrow. No signs of surrounding cellulitis. Abd soft for nursing palpation. Assessment and plan: Hypotension related to pneumonia, volume depletion/dehydration. Responded well to IV fluids and now resolved with blood pressure 119/42, hold his antihypertensive medications tonite, reassess tomorrow. Continue IV fluids normal saline at 75 mL/h. Had decreased mentation on arrival to ED, but is better, now, hold Melatonin and tramadol for now. Held Gabapentin with his renal function, reassess in the am to resume to avoid withdrawal. Community-acquired pneumonia, left lower lobe,acute hypoxic resp failure: Continue Rocephin and Azithromycin. R. leg wound: continue wound care, no signs of cellulitis. Parkinson's: continue home meds. LONA on CKD, baseline cr 1.3, today 2.47, he is making urine. Avoid hypotension or nephrotoxic meds. Monitor uop and repeat renal function in the AM. K was not elevated. Please call E hospitalist with any questions. 09/26/19 Decubitus ulcerations - Continue wound care and management. Dressing to be changed daily and as needed. Parkinsons - medications as tolerated - continue management if able to ingest meds. Leg wound - continue wound care and dressings. Pneumonia - finish course of IV antibiotics - resolving. Delirium - patient remains obtunded at this time. Plan of care to be discussed with family when they arrive today. May discuss comfort cares as patient was changed to DNR/DNI this weekend by provider and family. Follow up labs today for management plan. 09/27/19 - Patient placed into comfort cares. Discussed with family regarding plan of care and all are present and in agreement with comfort cares. DC all oral meds. We can initiate hospice medications as needed. Family to be present per protocols. 09/28/19 - Patient has no changes in comfort cares. Continue current management. 09/29/19 - Patient on comfort cares. No changes in management. Will sign out to weekend provider today.
--- NOTE | 2019-09-30 08:57 | PCM.PN ---
- General Info Date of Service: 09/30/19 Admission Dx/Problem (Free Text): pneumonia Subjective Update: Pt remains in critical condition, DNR orders in place Family aware and accepting of end of life situation. Pt appears to remain comfortable and non communitive Functional Status: Reports: Pain Controlled - Patient Data Vitals - Most Recent: Last Vital Signs Temp 97.8 F 09/30/19 08:42 Pulse 70 09/30/19 08:42 Resp 16 09/30/19 08:42 BP 176/70 H 09/30/19 08:42 Pulse Ox 95 09/29/19 20:00 Weight - Most Recent: 140 lb Lab Results Last 24 Hours: Laboratory Results - last 24 hr 09/23/19 Range/Units 07:25 Reverse T3 29.2 H (9.2-24.1) ng/dL Med Orders - Current: Current Medications Diphenhydramine HCl (Benadryl) 25 mg IVPUSH BEDTIME PRN PRN Reason: Anxiety Last Admin: 09/26/19 02:52 Dose: 25 mg Documented by: Haloperidol Lactate (Haldol) 5 mg IM Q4H PRN PRN Reason: Agitation Last Admin: 09/24/19 01:19 Dose: 5 mg Documented by: Lorazepam (Ativan) 1 mg SUBCUT Q4H PRN PRN Reason: Agitation Last Admin: 09/24/19 22:14 Dose: 1 mg Documented by: Discontinued Medications Acetaminophen (Tylenol) 650 mg PO Q4H PRN PRN Reason: Pain (Mild 1-3)/fever Albuterol/Ipratropium (Duoneb 3.0-0.5 Mg/3 Ml) 3 ml NEB Q4H PRN PRN Reason: sob Allopurinol (Zyloprim) 100 mg PO DAILY PRN PRN Reason: pain Aspirin (Halfprin) 81 mg PO DAILY [facility] Last Admin: 09/27/19 07:57 Dose: Not Given Documented by: Bisacodyl (Dulcolax) 10 mg RECTAL ONETIME ONE Stop: 09/23/19 16:29 Last Admin: 09/23/19 16:59 Dose: 10 mg Documented by: Carbidopa/Levodopa (Sinemet Cr 50-200 Mg) 1 tab PO BEDTIME [facility] Carbidopa/Levodopa (Sinemet Cr 50-200 Mg) 1 tab PO DAILY@2200 [facility] Last Admin: 09/26/19 23:10 Dose: Not Given Documented by: Ceftriaxone Sodium (Rocephin) Confirm Administered Dose 1 gm .ROUTE .STK-MED ONE Stop: 09/20/19 15:01 Last Admin: 09/20/19 14:54 Dose: Not Given Documented by: Diphenhydramine HCl (Benadryl) Confirm Administered Dose 50 mg .ROUTE .STK-MED ONE Stop: 09/21/19 20:15 Last Admin: 09/22/19 06:38 Dose: Not Given Documented by: Fentanyl (Sublimaze) 25 mcg IVPUSH ONETIME ONE Stop: 09/21/19 16:26 Last Admin: 09/21/19 16:26 Dose: 25 mcg Documented by: Gabapentin (Neurontin) 100 mg PO BID [facility] Haloperidol Lactate (Haldol) Confirm Administered Dose 5 mg .ROUTE .STK-MED ONE Stop: 09/21/19 20:15 Last Admin: 09/22/19 06:36 Dose: Not Given Documented by: Haloperidol Lactate (Haldol) 5 mg IM ONETIME ONE Stop: 09/21/19 20:35 Last Admin: 09/21/19 20:34 Dose: 5 mg Documented by: Sodium Chloride (Normal Saline) 1,000 mls @ 999 mls/hr IV .BOLUS ONE Stop: 09/20/19 15:19 Last Admin: 09/20/19 14:20 Dose: 999 mls/hr Documented by: Ceftriaxone Sodium 1 gm/ (Sodium Chloride) 50 mls @ 100 mls/hr IV ONETIME ONE Stop: 09/20/19 15:19 Last Admin: 09/20/19 15:15 Dose: 100 mls/hr Documented by: Sodium Chloride (Normal Saline) 1,000 mls @ 75 mls/hr IV ASDIRECTED [facility] Last Admin: 09/20/19 15:24 Dose: 999 mls/hr Documented by: Azithromycin 500 mg/ Sodium (Chloride) 250 mls @ 250 mls/hr IV ONETIME ONE Stop: 09/20/19 19:07 Last Admin: 09/20/19 18:25 Dose: 250 mls/hr Documented by: Ceftriaxone Sodium 1 gm/ (Sodium Chloride) 50 mls @ 100 mls/hr IV Q24H [facility] Last Admin: 09/26/19 19:42 Dose: 100 mls/hr Documented by: Azithromycin 250 mg/ Sodium (Chloride) 250 mls @ 250 mls/hr IV Q24H [facility] Last Admin: 09/26/19 20:53 Dose: 250 mls/hr Documented by: Dextrose/Sodium Chloride (Dextrose 5%-1/2 Ns) 1,000 mls @ 75 mls/hr IV ASDIRECTED [facility] Last Admin: 09/21/19 11:00 Dose: 75 mls/hr Documented by: Dextrose/Sodium Chloride (Dextrose 5%-1/2 Ns) 1,000 mls @ 125 mls/hr IV ASDIRECTED [facility] Last Admin: 09/22/19 11:15 Dose: 125 mls/hr Documented by: Potassium Chloride/Sodium Chloride (1/2 Ns With 20 Meq Kcl) 1,000 mls @ 100 mls/hr IV ASDIRECTED [facility] Last Admin: 09/25/19 20:20 Dose: 100 mls/hr Documented by: Potassium Chloride/Sodium Chloride (1/2 Ns With 20 Meq Kcl) 1,000 mls @ 75 mls/hr IV ASDIRECTED [facility] Last Admin: 09/26/19 18:30 Dose: 75 mls/hr Documented by: Latanoprost (Xalatan 0.005% Oph Soln) 0 ml EYELF BEDTIME [facility] Last Admin: 09/22/19 22:36 Dose: Not Given Documented by: Lorazepam (Ativan) 1 mg IVPUSH Q4H PRN PRN Reason: Agitation Last Admin: 09/22/19 11:13 Dose: 1 mg Documented by: Lorazepam (Ativan) 1 mg IVPUSH ONETIME ONE Stop: 09/22/19 13:55 Last Admin: 09/22/19 15:15 Dose: 1 mg Documented by: [Carbidopa-Levodopa (25-250] *Pt Own Med*) 1 each PO Q2HR [facility] Last Admin: 09/27/19 23:15 Dose: Not Given Documented by: Omeprazole (Omeprazole) 20 mg PO ACBREAKFAST [facility] Last Admin: 09/27/19 07:57 Dose: Not Given Documented by: Polyethylene Glycol (Miralax) 17 gm PO DAILY PRN PRN Reason: Constipation Last Admin: 09/23/19 16:58 Dose: 17 gm Documented by: Quetiapine Fumarate (Seroquel) 25 mg PO DAILY [facility] Last Admin: 09/27/19 07:57 Dose: Not Given Documented by: Sodium Chloride (Saline Flush) 10 ml FLUSH ASDIRECTED PRN PRN Reason: Keep Vein Open Last Admin: 09/26/19 18:33 Dose: 10 ml Documented by: Sodium Chloride (Saline Flush) 10 ml FLUSH BID [facility] Last Admin: 09/27/19 20:40 Dose: Not Given Documented by: Sepsis Event Note - Evaluation Sepsis Screening Result: No Definite Risk - Focused Exam Vital Signs: Vital Signs Temp Pulse Resp BP 09/30/19 08:42 97.8 F 70 16 176/70 H - Problem List Review Problem List Initiated/Reviewed/Updated: No - Assessment Assessment:: See plan - Plan Plan:: Ehospitalist collaboration: 84-year-old male admitted to the emergency room for left lower lobe pneumonia, hypotension, dehydration/volume depletion. Patient presented to the ED initially unresponsive, genearlized weakness, lethargy, and hypotension with blood pressure 71/39. Patient has past medical history of Parkinson's, hypertension, chronic pain. He is also nonverbal at baseline. He lives at home with his and his son. He was found to have leukocytosis of 14. Lactic acid was 1.8. Chest x-ray left lower lobe pneumonia. COVID negative. Initial respiratory rate was 28 and he had acute hypoxic respiratory failure with O2 sat 84% on room air. Since receiving 2 L of IV fluid blood pressure is improved to 119/42. Heart rate 69. Respiratory rate 16. O2 sat 95% on 2 L nasal cannula. He has been given 1 g of Rocephin, also is receiving azithromycin. On telemedicine camera evaluation, at this time the controls for stethoscope are not working. But, I was still able to evaluate the patient over camera, no respiratory distress via video view, he was lying in bed, he is nonverbal at baseline. He appeared calm. He was cooperative. He does have a right lower leg dixon wound that has been following with wound care outpatient. We will continue Vaseline and gauze and follow-up with physical therapy wound care tomorrow. No signs of surrounding cellulitis. Abd soft for nursing palpation. Assessment and plan: Hypotension related to pneumonia, volume depletion/dehydration. Responded well to IV fluids and now resolved with blood pressure 119/42, hold his antihyperte nsive medications tonite, reassess tomorrow. Continue IV fluids normal saline at 75 mL/h. Had decreased mentation on arrival to ED, but is better, now, hold Melatonin and tramadol for now. Held Gabapentin with his renal function, reassess in the am to resume to avoid withdrawal. Community-acquired pneumonia, left lower lobe,acute hypoxic resp failure: Continue Rocephin and Azithromycin. R. leg wound: continue wound care, no signs of cellulitis. Parkinson's: continue home meds. LONA on CKD, baseline cr 1.3, today 2.47, he is making urine. Avoid hypotension or nephrotoxic meds. Monitor uop and repeat renal function in the AM. K was not elevated. Please call E hospitalist with any questions. 09/26/19 Decubitus ulcerations - Continue wound care and management. Dressing to be changed daily and as needed. Parkinsons - medications as tolerated - continue management if able to ingest meds. Leg wound - continue wound care and dressings. Pneumonia - finish course of IV antibiotics - resolving. Delirium - patient remains obtunded at this time. Plan of care to be discussed with family when they arrive today. May discuss comfort cares as patient was changed to DNR/DNI this weekend by provider and family. Follow up labs today for management plan. 09/27/19 - Patient placed into comfort cares. Discussed with family regarding plan of care and all are present and in agreement with comfort cares. DC all oral meds. We can initiate hospice medications as needed. Family to be present per protocols. 09/28/19 - Patient has no changes in comfort cares. Continue current management.
--- NOTE | 2019-10-01 09:35 | PCM.PN ---
- General Info Date of Service: 10/01/19 Functional Status: Reports: Pain Controlled - Review of Systems Systems Review Comment:: Pt has remained baseline, will occasionally follow with his eyes. No new sx. Decreased po, and uo - Patient Data Vitals - Most Recent: Last Vital Signs Temp 97.7 F 09/30/19 21:57 Pulse 74 09/30/19 21:57 Resp 18 09/30/19 21:57 BP 145/56 H 09/30/19 21:57 Pulse Ox 98 09/30/19 21:57 Weight - Most Recent: 140 lb Med Orders - Current: Current Medications Diphenhydramine HCl (Benadryl) 25 mg IVPUSH BEDTIME PRN PRN Reason: Anxiety Last Admin: 09/26/19 02:52 Dose: 25 mg Documented by: Haloperidol Lactate (Haldol) 5 mg IM Q4H PRN PRN Reason: Agitation Last Admin: 09/24/19 01:19 Dose: 5 mg Documented by: Lorazepam (Ativan) 1 mg SUBCUT Q4H PRN PRN Reason: Agitation Last Admin: 09/24/19 22:14 Dose: 1 mg Documented by: Discontinued Medications Acetaminophen (Tylenol) 650 mg PO Q4H PRN PRN Reason: Pain (Mild 1-3)/fever Albuterol/Ipratropium (Duoneb 3.0-0.5 Mg/3 Ml) 3 ml NEB Q4H PRN PRN Reason: sob Allopurinol (Zyloprim) 100 mg PO DAILY PRN PRN Reason: pain Aspirin (Halfprin) 81 mg PO DAILY [facility] Last Admin: 09/27/19 07:57 Dose: Not Given Documented by: Bisacodyl (Dulcolax) 10 mg RECTAL ONETIME ONE Stop: 09/23/19 16:29 Last Admin: 09/23/19 16:59 Dose: 10 mg Documented by: Carbidopa/Levodopa (Sinemet Cr 50-200 Mg) 1 tab PO BEDTIME [facility] Carbidopa/Levodopa (Sinemet Cr 50-200 Mg) 1 tab PO DAILY@2200 [facility] Last Admin: 09/26/19 23:10 Dose: Not Given Documented by: Ceftriaxone Sodium (Rocephin) Confirm Administered Dose 1 gm .ROUTE .STK-MED ONE Stop: 09/20/19 15:01 Last Admin: 09/20/19 14:54 Dose: Not Given Documented by: Diphenhydramine HCl (Benadryl) Confirm Administered Dose 50 mg .ROUTE .STK-MED ONE Stop: 09/21/19 20:15 Last Admin: 09/22/19 06:38 Dose: Not Given Documented by: Fentanyl (Sublimaze) 25 mcg IVPUSH ONETIME ONE Stop: 09/21/19 16:26 Last Admin: 09/21/19 16:26 Dose: 25 mcg Documented by: Gabapentin (Neurontin) 100 mg PO BID [facility] Haloperidol Lactate (Haldol) Confirm Administered Dose 5 mg .ROUTE .STK-MED ONE Stop: 09/21/19 20:15 Last Admin: 09/22/19 06:36 Dose: Not Given Documented by: Haloperidol Lactate (Haldol) 5 mg IM ONETIME ONE Stop: 09/21/19 20:35 Last Admin: 09/21/19 20:34 Dose: 5 mg Documented by: Sodium Chloride (Normal Saline) 1,000 mls @ 999 mls/hr IV .BOLUS ONE Stop: 09/20/19 15:19 Last Admin: 09/20/19 14:20 Dose: 999 mls/hr Documented by: Ceftriaxone Sodium 1 gm/ (Sodium Chloride) 50 mls @ 100 mls/hr IV ONETIME ONE Stop: 09/20/19 15:19 Last Admin: 09/20/19 15:15 Dose: 100 mls/hr Documented by: Sodium Chloride (Normal Saline) 1,000 mls @ 75 mls/hr IV ASDIRECTED [facility] Last Admin: 09/20/19 15:24 Dose: 999 mls/hr Documented by: Azithromycin 500 mg/ Sodium (Chloride) 250 mls @ 250 mls/hr IV ONETIME ONE Stop: 09/20/19 19:07 Last Admin: 09/20/19 18:25 Dose: 250 mls/hr Documented by: Ceftriaxone Sodium 1 gm/ (Sodium Chloride) 50 mls @ 100 mls/hr IV Q24H [facility] Last Admin: 09/26/19 19:42 Dose: 100 mls/hr Documented by: Azithromycin 250 mg/ Sodium (Chloride) 250 mls @ 250 mls/hr IV Q24H [facility] Last Admin: 09/26/19 20:53 Dose: 250 mls/hr Documented by: Dextrose/Sodium Chloride (Dextrose 5%-1/2 Ns) 1,000 mls @ 75 mls/hr IV ASDIRECTED [facility] Last Admin: 09/21/19 11:00 Dose: 75 mls/hr Documented by: Dextrose/Sodium Chloride (Dextrose 5%-1/2 Ns) 1,000 mls @ 125 mls/hr IV ASDIRECTED [facility] Last Admin: 09/22/19 11:15 Dose: 125 mls/hr Documented by: Potassium Chloride/Sodium Chloride (1/2 Ns With 20 Meq Kcl) 1,000 mls @ 100 mls/hr IV ASDIRECTED [facility] Last Admin: 09/25/19 20:20 Dose: 100 mls/hr Documented by: Potassium Chloride/Sodium Chloride (1/2 Ns With 20 Meq Kcl) 1,000 mls @ 75 mls/hr IV ASDIRECTED [facility] Last Admin: 09/26/19 18:30 Dose: 75 mls/hr Documented by: Latanoprost (Xalatan 0.005% Ophth Soln) 0 ml EYELF BEDTIME [facility] Last Admin: 09/22/19 22:36 Dose: Not Given Documented by: Lorazepam (Ativan) 1 mg IVPUSH Q4H PRN PRN Reason: Agitation Last Admin: 09/22/19 11:13 Dose: 1 mg Documented by: Lorazepam (Ativan) 1 mg IVPUSH ONETIME ONE Stop: 09/22/19 13:55 Last Admin: 09/22/19 15:15 Dose: 1 mg Documented by: [Carbidopa-Levodopa (25-250] *Pt Own Med*) 1 each PO Q2HR [facility] Last Admin: 09/27/19 23:15 Dose: Not Given Documented by: Omeprazole (Omeprazole) 20 mg PO ACBREAKFAST [facility] Last Admin: 09/27/19 07:57 Dose: Not Given Documented by: Polyethylene Glycol (Miralax) 17 gm PO DAILY PRN PRN Reason: Constipation Last Admin: 09/23/19 16:58 Dose: 17 gm Documented by: Quetiapine Fumarate (Seroquel) 25 mg PO DAILY [facility] Last Admin: 09/27/19 07:57 Dose: Not Given Documented by: Sodium Chloride (Saline Flush) 10 ml FLUSH ASDIRECTED PRN PRN Reason: Keep Vein Open Last Admin: 09/26/19 18:33 Dose: 10 ml Documented by: Sodium Chloride (Saline Flush) 10 ml FLUSH BID [facility] Last Admin: 09/27/19 20:40 Dose: Not Given Documented by: Comments:: Pt has remained baseline, will occasionally follow with his eyes. No new sx. Decreased po, and uo Sepsis Event Note - Evaluation Sepsis Screening Result: No Definite Risk - Focused Exam Vital Signs: Vital Signs Temp Pulse Resp BP Pulse Ox 09/30/19 21:57 97.7 F 74 18 145/56 H 98 - Problem List Review Problem List Initiated/Reviewed/Updated: Yes - Assessment Assessment:: See plan Remains in DNR/DNI/Comfort Measures only - Plan Plan:: Ehospitalist collaboration: 84-year-old male admitted to the emergency room for left lower lobe pneumonia, hypotension, dehydration/volume depletion. Patient presented to the ED initially unresponsive, genearlized weakness, lethargy, and hypotension with blood pressure 71/39. Patient has past medical history of Parkinson's, hypertension, chronic pain. He is also nonverbal at baseline. He lives at home with his and his son. He was found to have leukocytosis of 14. Lactic acid was 1.8. Chest x-ray left lower lobe pneumonia. COVID negative. Initial respiratory rate was 28 and he had acute hypoxic respiratory failure with O2 sat 84% on room air. Since receiving 2 L of IV fluid blood pressure is improved to 119/42. Heart rate 69. Respiratory rate 16. O2 sat 95% on 2 L nasal cannula. He has been given 1 g of Rocephin, also is receiving azithromycin. On telemedicine camera evaluation, at this time the controls for stethoscope are not working. But, I was still able to evaluate the patient over camera, no respiratory distress via video view, he was lying in bed, he is nonverbal at baseline. He appeared calm. He was cooperative. He does have a right lower leg dixon wound that has been following with wound care outpatient. We will co ntinue Vaseline and gauze and follow-up with physical therapy wound care tomorrow. No signs of surrounding cellulitis. Abd soft for nursing palpation. Assessment and plan: Hypotension related to pneumonia, volume depletion/dehydration. Responded well to IV fluids and now resolved with blood pressure 119/42, hold his antihypertensive medications tonite, reassess tomorrow. Continue IV fluids nor mal saline at 75 mL/h. Had decreased mentation on arrival to ED, but is better, now, hold Melatonin and tramadol for now. Held Gabapentin with his renal function, reassess in the am to resume to avoid withdrawal. Community-acquired pneumonia, left lower lobe,acute hypoxic resp failure: Continue Rocephin and Azithromycin. R. leg wound: continue wound care, no signs of cellulitis. Parkinson's: continue home meds. LONA on CKD, baseline cr 1.3, today 2.47, he is making urine. Avoid hypotension or nephrotoxic meds. Monitor uop and repeat renal function in the AM. K was not elevated. Please call E hospitalist with any questions. 09/26/19 Decubitus ulcerations - Continue wound care and management. Dressing to be changed daily and as needed. Parkinsons - medications as tolerated - continue management if able to ingest meds. Leg wound - continue wound care and dressings. Pneumonia - finish course of IV antibiotics - resolving. Delirium - patient remains obtunded at this time. Plan of care to be discussed with family when they arrive today. May discuss comfort cares as patient was changed to DNR/DNI this weekend by provider and family. Follow up labs today for management plan. 09/27/19 - Patient placed into comfort cares. Discussed with family regarding plan of care and all are present and in agreement with comfort cares. DC all oral meds. We can initiate hospice medications as needed. Family to be present per protocols. 09/28/19 - Patient has no changes in comfort cares. Continue current management.
[2019-10-01] MEDS ORDERED: diphenhydrAMINE 50 MG/ML SDV IM PRN (09:38)
[2019-10-01] MEDS: LORazepam 2 MG/ML SDV SUBCUT PRN (10:12)
[2019-10-01] MEDS ORDERED: Morphine 2 MG/ML SYRINGE IM PRN (11:32)
--- NOTE | 2019-10-02 07:49 | PCM.PN ---
- General Info Date of Service: 10/02/19 Functional Status: Reports: Pain Controlled (Pt remains DNR, Little po intake and urine output, last bm 3 days ago. ) - Review of Systems Pulmonary: Reports: Shortness of Breath Gastrointestinal: Reports: Decreased Appetite Genitourinary: Reports: Other (little urine output) - Patient Data Vitals - Most Recent: Last Vital Signs Temp 97.8 F 10/01/19 08:00 Pulse 67 10/01/19 08:00 Resp 20 10/01/19 20:00 BP 133/55 L 10/01/19 08:00 Pulse Ox 95 10/01/19 19:35 Weight - Most Recent: 140 lb Med Orders - Current: Current Medications Diphenhydramine HCl (Benadryl) 25 mg IM Q6H PRN PRN Reason: Anxiety Haloperidol Lactate (Haldol) 5 mg IM Q4H PRN PRN Reason: Agitation Last Admin: 09/24/19 01:19 Dose: 5 mg Documented by: Lorazepam (Ativan) 1 mg SUBCUT Q4H PRN PRN Reason: Agitation Last Admin: 10/01/19 10:12 Dose: 1 mg Documented by: Morphine Sulfate (Morphine) 2 mg IM Q2H PRN PRN Reason: Pain (severe 7-10) Last Admin: 10/01/19 18:45 Dose: 2 mg Documented by: Discontinued Medications Acetaminophen (Tylenol) 650 mg PO Q4H PRN PRN Reason: Pain (Mild 1-3)/fever Albuterol/Ipratropium (Duoneb 3.0-0.5 Mg/3 Ml) 3 ml NEB Q4H PRN PRN Reason: sob Allopurinol (Zyloprim) 100 mg PO DAILY PRN PRN Reason: pain Aspirin (Halfprin) 81 mg PO DAILY [facility] Last Admin: 09/27/19 07:57 Dose: Not Given Documented by: Bisacodyl (Dulcolax) 10 mg RECTAL ONETIME ONE Stop: 09/23/19 16:29 Last Admin: 09/23/19 16:59 Dose: 10 mg Documented by: Carbidopa/Levodopa (Sinemet Cr 50-200 Mg) 1 tab PO BEDTIME [facility] Carbidopa/Levodopa (Sinemet Cr 50-200 Mg) 1 tab PO DAILY@2200 [facility] Last Admin: 09/26/19 23:10 Dose: Not Given Documented by: Ceftriaxone Sodium (Rocephin) Confirm Administered Dose 1 gm .ROUTE .STK-MED ONE Stop: 09/20/19 15:01 Last Admin: 09/20/19 14:54 Dose: Not Given Documented by: Diphenhydramine HCl (Benadryl) Confirm Administered Dose 50 mg .ROUTE .STK-MED ONE Stop: 09/21/19 20:15 Last Admin: 09/22/19 06:38 Dose: Not Given Documented by: Diphenhydramine HCl (Benadryl) 25 mg IVPUSH BEDTIME PRN PRN Reason: Anxiety Last Admin: 09/26/19 02:52 Dose: 25 mg Documented by: Fentanyl (Sublimaze) 25 mcg IVPUSH ONETIME ONE Stop: 09/21/19 16:26 Last Admin: 09/21/19 16:26 Dose: 25 mcg Documented by: Gabapentin (Neurontin) 100 mg PO BID [facility] Haloperidol Lactate (Haldol) Confirm Administered Dose 5 mg .ROUTE .STK-MED ONE Stop: 09/21/19 20:15 Last Admin: 09/22/19 06:36 Dose: Not Given Documented by: Haloperidol Lactate (Haldol) 5 mg IM ONETIME ONE Stop: 09/21/19 20:35 Last Admin: 09/21/19 20:34 Dose: 5 mg Documented by: Sodium Chloride (Normal Saline) 1,000 mls @ 999 mls/hr IV .BOLUS ONE Stop: 09/20/19 15:19 Last Admin: 09/20/19 14:20 Dose: 999 mls/hr Documented by: Ceftriaxone Sodium 1 gm/ (Sodium Chloride) 50 mls @ 100 mls/hr IV ONETIME ONE Stop: 09/20/19 15:19 Last Admin: 09/20/19 15:15 Dose: 100 mls/hr Documented by: Sodium Chloride (Normal Saline) 1,000 mls @ 75 mls/hr IV ASDIRECTED [facility] Last Admin: 09/20/19 15:24 Dose: 999 mls/hr Documented by: Azithromycin 500 mg/ Sodium (Chloride) 250 mls @ 250 mls/hr IV ONETIME ONE Stop: 09/20/19 19:07 Last Admin: 09/20/19 18:25 Dose: 250 mls/hr Documented by: Ceftriaxone Sodium 1 gm/ (Sodium Chloride) 50 mls @ 100 mls/hr IV Q24H [facility] Last Admin: 09/26/19 19:42 Dose: 100 mls/hr Documented by: Azithromycin 250 mg/ Sodium (Chloride) 250 mls @ 250 mls/hr IV Q24H [facility] Last Admin: 09/26/19 20:53 Dose: 250 mls/hr Documented by: Dextrose/Sodium Chloride (Dextrose 5%-1/2 Ns) 1,000 mls @ 75 mls/hr IV ASDIRECTED [facility] Last Admin: 09/21/19 11:00 Dose: 75 mls/hr Documented by: Dextrose/Sodium Chloride (Dextrose 5%-1/2 Ns) 1,000 mls @ 125 mls/hr IV ASDIRECTED [facility] Last Admin: 09/22/19 11:15 Dose: 125 mls/hr Documented by: Potassium Chloride/Sodium Chloride (1/2 Ns With 20 Meq Kcl) 1,000 mls @ 100 mls/hr IV ASDIRECTED [facility] Last Admin: 09/25/19 20:20 Dose: 100 mls/hr Documented by: Potassium Chloride/Sodium Chloride (1/2 Ns With 20 Meq Kcl) 1,000 mls @ 75 mls/hr IV ASDIRECTED [facility] Last Admin: 09/26/19 18:30 Dose: 75 mls/hr Documented by: Latanoprost (Xalatan 0.005% Ophth Soln) 0 ml EYELF BEDTIME [facility] Last Admin: 09/22/19 22:36 Dose: Not Given Documented by: Lorazepam (Ativan) 1 mg IVPUSH Q4H PRN PRN Reason: Agitation Last Admin: 09/22/19 11:13 Dose: 1 mg Documented by: Lorazepam (Ativan) 1 mg IVPUSH ONETIME ONE Stop: 09/22/19 13:55 Last Admin: 09/22/19 15:15 Dose: 1 mg Documented by: [Carbidopa-Levodopa (25-250] *Pt Own Med*) 1 each PO Q2HR [facility] Last Admin: 09/27/19 23:15 Dose: Not Given Documented by: Omeprazole (Omeprazole) 20 mg PO ACBREAKFAST [facility] Last Admin: 09/27/19 07:57 Dose: Not Given Documented by: Polyethylene Glycol (Miralax) 17 gm PO DAILY PRN PRN Reason: Constipation Last Admin: 09/23/19 16:58 Dose: 17 gm Documented by: Quetiapine Fumarate (Seroquel) 25 mg PO DAILY [facility] Last Admin: 09/27/19 07:57 Dose: Not Given Documented by: Sodium Chloride (Saline Flush) 10 ml FLUSH ASDIRECTED PRN PRN Reason: Keep Vein Open Last Admin: 09/26/19 18:33 Dose: 10 ml Documented by: Sodium Chloride (Saline Flush) 10 ml FLUSH BID [facility] Last Admin: 09/27/19 20:40 Dose: Not Given Documented by: Sepsis Event Note - Evaluation Sepsis Screening Result: No Definite Risk - Focused Exam Vital Signs: Vital Signs Resp 10/01/19 20:00 20 - Problem List Review Problem List Initiated/Reviewed/Updated: Yes - My Orders Last 24 Hours: My Active Orders 10/01/19 09:38 diphenhydrAMINE [Benadryl] 25 mg IM Q6H PRN 10/01/19 11:32 Morphine 2 mg IM Q2H PRN - Assessment Assessment:: See plan Remains in DNR/DNI/Comfort Measures only - Plan Plan:: Ehospitalist collaboration: 84-year-old male admitted to the emergency room for left lower lobe pneumonia, hypotension, dehydration/volume depletion. Patient presented to the ED initially unresponsive, genearlized weakness, lethargy, and hypotension with blood pressure 71/39. Patient has past medical history of Parkinson's, hypertension, chronic pain. He is also nonverbal at baseline. He lives at home with his and his son. He was found to have leukocytosis of 14. Lactic acid was 1.8. Chest x-ray left lower lobe pneumonia. COVID negative. Initial respiratory rate was 28 and he had acute hypoxic respiratory failure with O2 sat 84% on room air. Since receiving 2 L of IV fluid blood pressure is improved to 119/42. Heart rate 69. Respiratory rate 16. O2 sat 95% on 2 L nasal cannula. He has been given 1 g of Rocephin, also is receiving azithromycin. On telemedicine camera evaluation, at this time the controls for stethoscope are not working. But, I was still able to evaluate the patient over camera, no respiratory distress via video view, he was lying in bed, he is nonverbal at baseline. He appeared calm. He was cooperative. He does have a right lower leg dixon wound that has been following with wound care outpatient. We will continue Vaseline and gauze and follow-up with physical therapy wound care tomorrow. No signs of surrounding cellulitis. Abd soft for nursing palpation. Assessment and plan: Hypotension related to pneumonia, volume depletion/dehydration. Responded well to IV fluids and now resolved with blood pressure 119/42, hold his antihypertensive medications tonite, reassess tomorrow. Continue IV fluids normal saline at 75 mL/h. Had decreased mentation on arrival to ED, but is better, now, hold Melatonin and tramadol for now. Held Gabapentin with his renal function, reassess in the am to resume to avoid withdrawal. Community-acquired pneumonia, left lower lobe,acute hypoxic resp failure: Continue Rocephin and Azithromycin. R. leg wound: continue wound care, no signs of cellulitis. Parkinson's: continue home meds. LONA on CKD, baseline cr 1.3, today 2.47, he is making urine. Avoid hypotension or nephrotoxic meds. Monitor uop and repeat renal function in the AM. K was not elevated. Please call E hospitalist with any questions. 09/26/19 Decubitus ulcerations - Continue wound care and management. Dressing to be changed daily and as needed. Parkinsons - medications as tolerated - continue management if able to ingest meds. Leg wound - continue wound care and dressings. Pneumonia - finish course of IV antibiotics - resolving. Delirium - patient remains obtunded at this time. Plan of care to be discussed with family when they arrive today. May discuss comfort cares as patient was changed to DNR/DNI this weekend by provider and family. Follow up labs today for management plan. 09/27/19 - Patient placed into comfort cares. Discussed with family regarding plan of care and all are present and in agreement with comfort cares. DC all oral meds. We can initiate hospice medications as needed. Family to be present per protocols. 09/28/19 - Patient has no changes in comfort cares. Continue current management.
--- NOTE | 2019-10-03 07:54 | PCM.PN ---
- General Info Date of Service: 10/03/19 Functional Status: Reports: Pain Controlled - Review of Systems General: Reports: Other (No new sx) - Patient Data Vitals - Most Recent: Last Vital Signs Temp 97 F 10/02/19 20:00 Pulse 88 10/02/19 20:00 Resp 22 H 10/02/19 20:00 BP 132/67 10/02/19 20:00 Pulse Ox 97 10/02/19 20:00 Weight - Most Recent: 140 lb Med Orders - Current: Current Medications Diphenhydramine HCl (Benadryl) 25 mg IM Q6H PRN PRN Reason: Anxiety Haloperidol Lactate (Haldol) 5 mg IM Q4H PRN PRN Reason: Agitation Last Admin: 09/24/19 01:19 Dose: 5 mg Documented by: Lorazepam (Ativan) 1 mg SUBCUT Q4H PRN PRN Reason: Agitation Last Admin: 10/01/19 10:12 Dose: 1 mg Documented by: Morphine Sulfate (Morphine) 2 mg IM Q2H PRN PRN Reason: Pain (severe 7-10) Last Admin: 10/01/19 18:45 Dose: 2 mg Documented by: Discontinued Medications Acetaminophen (Tylenol) 650 mg PO Q4H PRN PRN Reason: Pain (Mild 1-3)/fever Albuterol/Ipratropium (Duoneb 3.0-0.5 Mg/3 Ml) 3 ml NEB Q4H PRN PRN Reason: sob Allopurinol (Zyloprim) 100 mg PO DAILY PRN PRN Reason: pain Aspirin (Halfprin) 81 mg PO DAILY [facility] Last Admin: 09/27/19 07:57 Dose: Not Given Documented by: Bisacodyl (Dulcolax) 10 mg RECTAL ONETIME ONE Stop: 09/23/19 16:29 Last Admin: 09/23/19 16:59 Dose: 10 mg Documented by: Carbidopa/Levodopa (Sinemet Cr 50-200 Mg) 1 tab PO BEDTIME [facility] Carbidopa/Levodopa (Sinemet Cr 50-200 Mg) 1 tab PO DAILY@2200 [facility] Last Admin: 09/26/19 23:10 Dose: Not Given Documented by: Ceftriaxone Sodium (Rocephin) Confirm Administered Dose 1 gm .ROUTE .STK-MED ONE Stop: 09/20/19 15:01 Last Admin: 09/20/19 14:54 Dose: Not Given Documented by: Diphenhydramine HCl (Benadryl) Confirm Administered Dose 50 mg .ROUTE .STK-MED ONE Stop: 09/21/19 20:15 Last Admin: 09/22/19 06:38 Dose: Not Given Documented by: Diphenhydramine HCl (Benadryl) 25 mg IVPUSH BEDTIME PRN PRN Reason: Anxiety Last Admin: 09/26/19 02:52 Dose: 25 mg Documented by: Fentanyl (Sublimaze) 25 mcg IVPUSH ONETIME ONE Stop: 09/21/19 16:26 Last Admin: 09/21/19 16:26 Dose: 25 mcg Documented by: Gabapentin (Neurontin) 100 mg PO BID [facility] Haloperidol Lactate (Haldol) Confirm Administered Dose 5 mg .ROUTE .STK-MED ONE Stop: 09/21/19 20:15 Last Admin: 09/22/19 06:36 Dose: Not Given Documented by: Haloperidol Lactate (Haldol) 5 mg IM ONETIME ONE Stop: 09/21/19 20:35 Last Admin: 09/21/19 20:34 Dose: 5 mg Documented by: Sodium Chloride (Normal Saline) 1,000 mls @ 999 mls/hr IV .BOLUS ONE Stop: 09/20/19 15:19 Last Admin: 09/20/19 14:20 Dose: 999 mls/hr Documented by: Ceftriaxone Sodium 1 gm/ (Sodium Chloride) 50 mls @ 100 mls/hr IV ONETIME ONE Stop: 09/20/19 15:19 Last Admin: 09/20/19 15:15 Dose: 100 mls/hr Documented by: Sodium Chloride (Normal Saline) 1,000 mls @ 75 mls/hr IV ASDIRECTED [facility] Last Admin: 09/20/19 15:24 Dose: 999 mls/hr Documented by: Azithromycin 500 mg/ Sodium (Chloride) 250 mls @ 250 mls/hr IV ONETIME ONE Stop: 09/20/19 19:07 Last Admin: 09/20/19 18:25 Dose: 250 mls/hr Documented by: Ceftriaxone Sodium 1 gm/ (Sodium Chloride) 50 mls @ 100 mls/hr IV Q24H [facility] Last Admin: 09/26/19 19:42 Dose: 100 mls/hr Documented by: Azithromycin 250 mg/ Sodium (Chloride) 250 mls @ 250 mls/hr IV Q24H [facility] Last Admin: 09/26/19 20:53 Dose: 250 mls/hr Documented by: Dextrose/Sodium Chloride (Dextrose 5%-1/2 Ns) 1,000 mls @ 75 mls/hr IV ASDIRECTED [facility] Last Admin: 09/21/19 11:00 Dose: 75 mls/hr Documented by: Dextrose/Sodium Chloride (Dextrose 5%-1/2 Ns) 1,000 mls @ 125 mls/hr IV ASDIR ECTED [facility] Last Admin: 09/22/19 11:15 Dose: 125 mls/hr Documented by: Potassium Chloride/Sodium Chloride (1/2 Ns With 20 Meq Kcl) 1,000 mls @ 100 mls/hr IV ASDIRECTED [facility] Last Admin: 09/25/19 20:20 Dose: 100 mls/hr Documented by: Potassium Chloride/Sodium Chloride (1/2 Ns With 20 Meq Kcl) 1,000 mls @ 75 mls/hr IV ASDIRECTED [facility] Last Admin: 09/26/19 18:30 Dose: 75 mls/hr Documented by: Latanoprost (Xalatan 0.005% Ophth Soln) 0 ml EYELF BEDTIME [facility] Last Admin: 09/22/19 22:36 Dose: Not Given Documented by: Lorazepam (Ativan) 1 mg IVPUSH Q4H PRN PRN Reason: Agitation Last Admin: 09/22/19 11:13 Dose: 1 mg Documented by: Lorazepam (Ativan) 1 mg IVPUSH ONETIME ONE Stop: 09/22/19 13:55 Last Admin: 09/22/19 15:15 Dose: 1 mg Documented by: [Carbidopa-Levodopa (25-250] *Pt Own Med*) 1 each PO Q2HR [facility] Last Admin: 09/27/19 23:15 Dose: Not Given Documented by: Omeprazole (Omeprazole) 20 mg PO ACBREAKFAST [facility] Last Admin: 09/27/19 07:57 Dose: Not Given Documented by: Polyethylene Glycol (Miralax) 17 gm PO DAILY PRN PRN Reason: Constipation Last Admin: 09/23/19 16:58 Dose: 17 gm Documented by: Quetiapine Fumarate (Seroquel) 25 mg PO DAILY [facility] Last Admin: 09/27/19 07:57 Dose: Not Given Documented by: Sodium Chloride (Saline Flush) 10 ml FLUSH ASDIRECTED PRN PRN Reason: Keep Vein Open Last Admin: 09/26/19 18:33 Dose: 10 ml Documented by: Sodium Chloride (Saline Flush) 10 ml FLUSH BID [facility] Last Admin: 09/27/19 20:40 Dose: Not Given Documented by: - Exam Neurological: No New Focal Deficit Sepsis Event Note - Evaluation Sepsis Screening Result: No Definite Risk - Focused Exam Vital Signs: Vital Signs Temp Pulse Resp BP Pulse Ox 10/02/19 20:00 97 F 88 22 H 132/67 97 - Problem List Review Problem List Initiated/Reviewed/Updated: Yes - Assessment Assessment:: See plan Remains in DNR/DNI/Comfort Measures only Pt with no significant changes in his health condition. Of incidental note pt decubitus ulcers on his buttocks seem to be improving - Plan Plan:: Ehospitalist collaboration: 84-year-old male admitted to the emergency room for left lower lobe pneumonia, hypotension, dehydration/volume depletion. Patient presented to the ED initially unresponsive, genearlized weakness, lethargy, and hypotension with blood pressure 71/39. Patient has past medical history of Parkinson's, hypertension, chronic pain. He is also nonverbal at baseline. He lives at home with his and his son. He was found to have leukocytosis of 14. Lactic acid was 1.8. Chest x-ray left lower lobe pneumonia. COVID negative. Initial respiratory rate was 28 and he had acute hypoxic respiratory failure with O2 sat 84% on room air. Since receiving 2 L of IV fluid blood pressure is improved to 119/42. Heart rate 69. Respiratory rate 16. O2 sat 95% on 2 L nasal cannula. He has been given 1 g of Rocephin, also is receiving azithromycin. On telemedicine camera evaluation, at this time the controls for stethoscope are not working. But, I was still able to evaluate the patient over camera, no respiratory distress via video view, he was lying in bed, he is nonverbal at baseline. He appeared calm. He was cooperative. He does have a right lower leg dixon wound that has been following with wound care outpatient. We will continue Vaseline and gauze and follow-up with physical therapy wound care tomorrow. No signs of surrounding cellulitis. Abd soft for nursing palpation. Assessment and plan: Hypotension related to pneumonia, volume depletion/dehydration. Responded well to IV fluids and now resolved with blood pressure 119/42, hold his antihypertensive medications tonite, reassess tomorrow. Continue IV fluids normal saline at 75 mL/h. Had decreased mentation on arrival to ED, but is better, now, hold Melatonin and tramadol for now. Held Gabapentin with his renal function, reassess in the am to resume to avoid withdrawal. Community-acquired pneumonia, left lower lobe,acute hypoxic resp failure: Continue Rocephin and Azithromycin. R. leg wound: continue wound care, no signs of cellulitis. Parkinson's: continue home meds. LONA on CKD, baseline cr 1.3, today 2.47, he is making urine. Avoid hypotension or nephrotoxic meds. Monitor uop and repeat renal function in the AM. K was not elevated. Please call E hospitalist with any questions. 09/26/19 Decubitus ulcerations - Continue wound care and management. Dressing to be changed daily and as needed. Parkinsons - medications as tolerated - continue management if able to ingest meds. Leg wound - continue wound care and dressings. Pneumonia - finish course of IV antibiotics - resolving. Delirium - patient remains obtunded at this time. Plan of care to be discussed with family when they arrive today. May discuss comfort cares as patient was changed to DNR/DNI this weekend by provider and family. Follow up labs today for management plan. 09/27/19 - Patient placed into comfort cares. Discussed with family regarding plan of care and all are present and in agreement with comfort cares. DC all oral meds. We can initiate hospice medications as needed. Family to be present per protocols. 09/28/19 - Patient has no changes in comfort cares. Continue current management. 10/03/19 Pt remains DNR No changes in condition
[2019-10-03 09:13] VITALS: BP 161/59; PULSE 71
[2019-10-03] MEDS ORDERED: Morphine 2 MG/ML SYRINGE ONE (18:02)
[2019-10-03] MEDS: Morphine Solution 10 MG/5 ML UD Cup PO PRN (18:05)
[2019-10-03] MEDS: Morphine 2 MG/ML SYRINGE ONE (23:45)
[2019-10-04] MEDS ORDERED: Morphine 2 MG/ML SYRINGE ONE ×2 (02:27→07:02)
[2019-10-04] MEDS: Morphine Solution 10 MG/5 ML UD Cup PO PRN ×2 (07:09→09:13)
--- NOTE | 2019-10-04 08:44 | PCM.PN ---
- General Info Date of Service: 10/04/19 Subjective Update: Patient continues with comfort cares and does appear comfortable. Family do not have any concerns or questions at this time. Patient respirations have increased but no agitation or discomfort with this change. Patient is not restless but resting comfortably in bed. Patient's and son have been present daily and understand that he is comfort cares and prognosis is poor. Functional Status: Reports: Pain Controlled, Other (no changes to patient systems except increased rate of breathing) - Patient Data Vitals - Most Recent: Last Vital Signs Temp 36.4 C 10/03/19 08:00 Pulse 71 10/03/19 08:00 Resp 22 H 10/03/19 08:00 BP 161/59 H 10/03/19 08:00 Pulse Ox 98 10/03/19 08:00 Weight - Most Recent: 63.503 kg Med Orders - Current: Current Medications Diphenhydramine HCl (Benadryl) 25 mg IM Q6H PRN PRN Reason: Anxiety Haloperidol Lactate (Haldol) 5 mg IM Q4H PRN PRN Reason: Agitation Last Admin: 09/24/19 01:19 Dose: 5 mg Documented by: Lorazepam (Ativan) 1 mg SUBCUT Q4H PRN PRN Reason: Agitation Last Admin: 10/01/19 10:12 Dose: 1 mg Documented by: Morphine Sulfate (Morphine 10 Mg/5 Ml) 1 mg PO Q2H PRN PRN Reason: Dyspnea Last Admin: 10/04/19 07:09 Dose: 1 mg Documented by: Discontinued Medications Acetaminophen (Tylenol) 650 mg PO Q4H PRN PRN Reason: Pain (Mild 1-3)/fever Albuterol/Ipratropium (Duoneb 3.0-0.5 Mg/3 Ml) 3 ml NEB Q4H PRN PRN Reason: sob Allopurinol (Zyloprim) 100 mg PO DAILY PRN PRN Reason: pain Aspirin (Halfprin) 81 mg PO DAILY [facility] Last Admin: 09/27/19 07:57 Dose: Not Given Documented by: Bisacodyl (Dulcolax) 10 mg RECTAL ONETIME ONE Stop: 09/23/19 16:29 Last Admin: 09/23/19 16:59 Dose: 10 mg Documented by: Carbidopa/Levodopa (Sinemet Cr 50-200 Mg) 1 tab PO BEDTIME [facility] Carbidopa/Levodopa (Sinemet Cr 50-200 Mg) 1 tab PO DAILY@2200 [facility] Last Admin: 09/26/19 23:10 Dose: Not Given Documented by: Ceftriaxone Sodium (Rocephin) Confirm Administered Dose 1 gm .ROUTE .STK-MED ONE Stop: 09/20/19 15:01 Last Admin: 09/20/19 14:54 Dose: Not Given Documented by: Diphenhydramine HCl (Benadryl) Confirm Administered Dose 50 mg .ROUTE .STK-MED ONE Stop: 09/21/19 20:15 Last Admin: 09/22/19 06:38 Dose: Not Given Documented by: Diphenhydramine HCl (Benadryl) 25 mg IVPUSH BEDTIME PRN PRN Reason: Anxiety Last Admin: 09/26/19 02:52 Dose: 25 mg Documented by: Fentanyl (Sublimaze) 25 mcg IVPUSH ONETIME ONE Stop: 09/21/19 16:26 Last Admin: 09/21/19 16:26 Dose: 25 mcg Documented by: Gabapentin (Neurontin) 100 mg PO BID [facility] Haloperidol Lactate (Haldol) Confirm Administered Dose 5 mg .ROUTE .STK-MED ONE Stop: 09/21/19 20:15 Last Admin: 09/22/19 06:36 Dose: Not Given Documented by: Haloperidol Lactate (Haldol) 5 mg IM ONETIME ONE Stop: 09/21/19 20:35 Last Admin: 09/21/19 20:34 Dose: 5 mg Documented by: Sodium Chloride (Normal Saline) 1,000 mls @ 999 mls/hr IV .BOLUS ONE Stop: 09/20/19 15:19 Last Admin: 09/20/19 14:20 Dose: 999 mls/hr Documented by: Ceftriaxone Sodium 1 gm/ (Sodium Chloride) 50 mls @ 100 mls/hr IV ONETIME ONE Stop: 09/20/19 15:19 Last Admin: 09/20/19 15:15 Dose: 100 mls/hr Documented by: Sodium Chloride (Normal Saline) 1,000 mls @ 75 mls/hr IV ASDIRECTED [facility] Last Admin: 09/20/19 15:24 Dose: 999 mls/hr Documented by: Azithromycin 500 mg/ Sodium (Chloride) 250 mls @ 250 mls/hr IV ONETIME ONE Stop: 09/20/19 19:07 Last Admin: 09/20/19 18:25 Dose: 250 mls/hr Documented by: Ceftriaxone Sodium 1 gm/ (Sodium Chloride) 50 mls @ 100 mls/hr IV Q24H [facility] Last Admin: 09/26/19 19:42 Dose: 100 mls/hr Documented by: Azithromycin 250 mg/ Sodium (Chloride) 250 mls @ 250 mls/hr IV Q24H [facility] Last Admin: 09/26/19 20:53 Dose: 250 mls/hr Documented by: Dextrose/Sodium Chloride (Dextrose 5%-1/2 Ns) 1,000 mls @ 75 mls/hr IV ASDIRECTED [facility] Last Admin: 09/21/19 11:00 Dose: 75 mls/hr Documented by: Dextrose/Sodium Chloride (Dextrose 5%-1/2 Ns) 1,000 mls [facility] Admin: 09/22/19 11:15 Dose: 125 mls/hr Documented by: Potassium Chloride/Sodium Chloride (1/2 Ns With 20 Meq Kcl) 1,000 mls @ 100 mls/hr IV ASDIRECTED [facility] Last Admin: 09/25/19 20:20 Dose: 100 mls/hr Documented by: Potassium Chloride/Sodium Chloride (1/2 Ns With 20 Meq Kcl) 1,000 mls @ 75 mls/hr IV ASDIRECTED [facility] Last Admin: 09/26/19 18:30 Dose: 75 mls/hr Documented by: Latanoprost (Xalatan 0.005% Ophth Soln) 0 ml EYELF BEDTIME [facility] Last Admin: 09/22/19 22:36 Dose: Not Given Documented by: Lorazepam (Ativan) 1 mg IVPUSH Q4H PRN PRN Reason: Agitation Last Admin: 09/22/19 11:13 Dose: 1 mg Documented by: Lorazepam (Ativan) 1 mg IVPUSH ONETIME ONE Stop: 09/22/19 13:55 Last Admin: 09/22/19 15:15 Dose: 1 mg Documented by: Morphine Sulfate (Morphine) 2 mg IM Q2H PRN PRN Reason: Pain (severe 7-10) Last Admin: 10/01/19 18:45 Dose: 2 mg Documented by: Morphine Sulfate (Morphine) Confirm Administered Dose 2 mg .ROUTE .STK-MED ONE Stop: 10/03/19 18:03 Last Admin: 10/04/19 07:13 Dose: Not Given Documented by: Morphine Sulfate (Morphine) Confirm Administered Dose 2 mg .ROUTE .STK-MED ONE Stop: 10/03/19 23:35 Last Admin: 10/03/19 23:45 Dose: 1 mg Documented by: Morphine Sulfate (Morphine) Confirm Administered Dose 2 mg .ROUTE .STK-MED ONE Stop: 10/04/19 02:28 Last Admin: 10/04/19 02:30 Dose: 1 mg Documented by: Morphine Sulfate (Morphine) Confirm Administered Dose 2 mg .ROUTE .STK-MED ONE Stop: 10/04/19 07:03 Last Admin: 10/04/19 07:09 Dose: Not Given Documented by: [Carbidopa-Levodopa (25-250] *Pt Own Med*) 1 each PO Q2HR [facility] Last Admin: 09/27/19 23:15 Dose: Not Given Documented by: Omeprazole (Omeprazole) 20 mg PO ACBREAKFAST [facility] Last Admin: 09/27/19 07:57 Dose: Not Given Documented by: Polyethylene Glycol (Miralax) 17 gm PO DAILY PRN PRN Reason: Constipation Last Admin: 09/23/19 16:58 Dose: 17 gm Documented by: Quetiapine Fumarate (Seroquel) 25 mg PO DAILY [facility] Last Admin: 09/27/19 07:57 Dose: Not Given Documented by: Sodium Chloride (Saline Flush) 10 ml FLUSH ASDIRECTED PRN PRN Reason: Keep Vein Open Last Admin: 09/26/19 18:33 Dose: 10 ml Documented by: Sodium Chloride (Saline Flush) 10 ml FLUSH BID [facility] Last Admin: 09/27/19 20:40 Dose: Not Given Documented by: - Exam General: Obtunded Lungs: Rales Cardiovascular: Regular Rate, Murmurs Sepsis Event Note - Evaluation Sepsis Screening Result: Sepsis Risk - Problem List & Annotations (1) Severe muscle deconditioning SNOMED Code(s): 976097854 Code(s): R29.898 - OTH SYMPTOMS AND SIGNS INVOLVING THE MUSCULOSKELETAL SYSTEM Status: Acute Current Visit: Yes (2) Decubitus skin ulcer SNOMED Code(s): 560188177 Code(s): L89.90 - PRESSURE ULCER OF UNSPECIFIED SITE, UNSPECIFIED STAGE Status: Acute Current Visit: Yes (3) Pneumonia SNOMED Code(s): 820038616 Code(s): J18.9 - PNEUMONIA, UNSPECIFIED ORGANISM Status: Acute Current Visit: Yes (4) Comfort measures only status SNOMED Code(s): 07223064584600 Code(s): Z51.5 - ENCOUNTER FOR PALLIATIVE CARE Status: Acute Priority: High Current Visit: Yes - Problem List Review Problem List Initiated/Reviewed/Updated: Yes - My Orders Last 24 Hours: My Active Orders 10/03/19 17:30 Morphine [Morphine 10 MG/5 ML] 1 mg PO Q2H PRN - Assessment Assessment:: See plan Remains in DNR/DNI/Comfort Measures only Pt with no significant changes in his health condition. Of incidental note pt decubitus ulcers on his buttocks seem to be improving - Plan Plan:: Ehospitalist collaboration: 84-year-old male admitted to the emergency room for left lower lobe pneumonia, hypotension, dehydration/volume depletion. Patient presented to the ED initially unresponsive, genearlized weakness, lethargy, and hypotension with blood pressure 71/39. Patient has past medical history of Parkinson's, hypertension, chronic pain. He is also nonverbal at baseline. He lives at home with his and his son. He was found to have leukocytosis of 14. Lactic acid was 1.8. Chest x-ray left lower lobe pneumonia. COVID negative. Initial respiratory rate was 28 and he had acute hypoxic respiratory failure with O2 sat 84% on room air. Since receiving 2 L of IV fluid blood pressure is improved to 119/42. Heart rate 69. Respiratory rate 16. O2 sat 95% on 2 L nasal cannula. He has been given 1 g of Rocephin, also is receiving azithromycin. On telemedicine camera evaluation, at this time the controls for stethoscope are not working. But, I was still able to evaluate the patient over camera, no respiratory distress via video view, he was lying in bed, he is nonverbal at baseline. He appeared calm. He was cooperative. He does have a right lower leg dixon wound that has been following with wound care outpatient. We will c ontinue Vaseline and gauze and follow-up with physical therapy wound care tomorrow. No signs of surrounding cellulitis. Abd soft for nursing palpation. Assessment and plan: Hypotension related to pneumonia, volume depletion/dehydration. Responded well to IV fluids and now resolved with blood pressure 119/42, hold his antihypertensive medications tonite, reassess tomorrow. Continue IV fluids no rmal saline at 75 mL/h. Had decreased mentation on arrival to ED, but is better, now, hold Melatonin and tramadol for now. Held Gabapentin with his renal function, reassess in the am to resume to avoid withdrawal. Community-acquired pneumonia, left lower lobe,acute hypoxic resp failure: Continue Rocephin and Azithromycin. R. leg wound: continue wound care, no signs of cellulitis. Parkinson's: continue home meds. LONA on CKD, baseline cr 1.3, today 2.47, he is making urine. Avoid hypotension or nephrotoxic meds. Monitor uop and repeat renal function in the AM. K was not elevated. Please call E hospitalist with any questions. 09/26/19 Decubitus ulcerations - Continue wound care and management. Dressing to be changed daily and as needed. Parkinsons - medications as tolerated - continue management if able to ingest meds. Leg wound - continue wound care and dressings. Pneumonia - finish course of IV antibiotics - resolving. Delirium - patient remains obtunded at this time. Plan of care to be discussed with family when they arrive today. May discuss comfort cares as patient was changed to DNR/DNI this weekend by provider and family. Follow up labs today for management plan. 09/27/19 - Patient placed into comfort cares. Discussed with family regarding plan of care and all are present and in agreement with comfort cares. DC all oral meds. We can initiate hospice medications as needed. Family to be present per protocols. 09/28/19 - Patient has no changes in comfort cares. Continue current management. 10/03/19 Pt remains DNR No changes in condition 10/04/19 Patient has increased respirations. Morphine added for comfort. We will monitor any distress and keep breathing comfortable. Continue to monitor secretions. No other changes at this time. Patient continues to get weaker with decreased movement and no agitation. Continue mouth swabs and scopolamine patch as needed. Please contact e-hospitalist if any concerns or acute questions today or tonight until rounding tomorrow.
[2019-10-04] MEDS ORDERED: Morphine Oral Concentrate 20 MG/ML 30 ML Bottle PO PRN (09:38)
[2019-10-04] MEDS: Morphine Oral Concentrate 20 MG/ML 30 ML Bottle PO PRN ×3 (13:11→16:35)
[2019-10-05] MEDS: Morphine Oral Concentrate 20 MG/ML 30 ML Bottle PO PRN ×8 (02:30→21:30)
--- NOTE | 2019-10-05 18:44 | PCM.PN ---
- General Info Date of Service: 10/05/19 Subjective Update: Patient has decreased responsiveness. He continues to get weaker but remains comfortable. Family have been present daily and monitoring plan and care. Family are still in consensus on comfort care plan and do not have any concerns at this time. Functional Status: Reports: Other (Comfort cares, patient obtunded - minimal to no response.) - Patient Data Vitals - Most Recent: Last Vital Signs Temp 36.4 C 10/03/19 08:00 Pulse 71 10/03/19 08:00 Resp 22 H 10/03/19 08:00 BP 161/59 H 10/03/19 08:00 Pulse Ox 93 L 10/05/19 17:20 Weight - Most Recent: 63.503 kg Med Orders - Current: Current Medications Diphenhydramine HCl (Benadryl) 25 mg IM Q6H PRN PRN Reason: Anxiety Haloperidol Lactate (Haldol) 5 mg IM Q4H PRN PRN Reason: Agitation Last Admin: 09/24/19 01:19 Dose: 5 mg Documented by: Lorazepam (Ativan) 1 mg SUBCUT Q4H PRN PRN Reason: Agitation Last Admin: 10/01/19 10:12 Dose: 1 mg Documented by: Morphine Sulfate (Morphine 20 Mg/Ml Soln) 4 mg PO Q2H PRN PRN Reason: Other Last Admin: 10/05/19 17:05 Dose: 4 mg Documented by: Discontinued Medications Acetaminophen (Tylenol) 650 mg PO Q4H PRN PRN Reason: Pain (Mild 1-3)/fever Albuterol/Ipratropium (Duoneb 3.0-0.5 Mg/3 Ml) 3 ml NEB Q4H PRN PRN Reason: sob Allopurinol (Zyloprim) 100 mg PO DAILY PRN PRN Reason: pain Aspirin (Halfprin) 81 mg PO DAILY [facility] [place] Last Admin: 09/27/19 07:57 Dose: Not Given Documented by: Bisacodyl (Dulcolax) 10 mg RECTAL ONETIME ONE Stop: 09/23/19 16:29 Last Admin: 09/23/19 16:59 Dose: 10 mg Documented by: Carbidopa/Levodopa (Sinemet Cr 50-200 Mg) 1 tab PO BEDTIME [facility] Carbidopa/Levodopa (Sinemet Cr 50-200 Mg) 1 tab PO DAILY@2200 [facility] [place] Last Admin: 09/26/19 23:10 Dose: Not Given Documented by: Ceftriaxone Sodium (Rocephin) Confirm Administered Dose 1 gm .ROUTE .STK-MED ONE Stop: 09/20/19 15:01 Last Admin: 09/20/19 14:54 Dose: Not Given Documented by: Diphenhydramine HCl (Benadryl) Confirm Administered Dose 50 mg .ROUTE .STK-MED ONE Stop: 09/21/19 20:15 Last Admin: 09/22/19 06:38 Dose: Not Given Documented by: Diphenhydramine HCl (Benadryl) 25 mg IVPUSH BEDTIME PRN PRN Reason: Anxiety Last Admin: 09/26/19 02:52 Dose: 25 mg Documented by: Fentanyl (Sublimaze) 25 mcg IVPUSH ONETIME ONE Stop: 09/21/19 16:26 Last Admin: 09/21/19 16:26 Dose: 25 mcg Documented by: Gabapentin (Neurontin) 100 mg PO BID [facility] [place] Haloperidol Lactate (Haldol) Confirm Administered Dose 5 mg .ROUTE .STK-MED ONE Stop: 09/21/19 20:15 Last Admin: 09/22/19 06:36 Dose: Not Given Documented by: Haloperidol Lactate (Haldol) 5 mg IM ONETIME ONE Stop: 09/21/19 20:35 Last Admin: 09/21/19 20:34 Dose: 5 mg Documented by: Sodium Chloride (Normal Saline) 1,000 mls @ 999 mls/hr IV .BOLUS ONE Stop: 09/20/19 15:19 Last Admin: 09/20/19 14:20 Dose: 999 mls/hr Documented by: Ceftriaxone Sodium 1 gm/ (Sodium Chloride) 50 mls @ 100 mls/hr IV ONETIME ONE Stop: 09/20/19 15:19 Last Admin: 09/20/19 15:15 Dose: 100 mls/hr Documented by: Sodium Chloride (Normal Saline) 1,000 mls @ 75 mls/hr IV ASDIRECTED [facility] [place] Last Admin: 09/20/19 15:24 Dose: 999 mls/hr Documented by: Azithromycin 500 mg/ Sodium (Chloride) 250 mls @ 250 mls/hr IV ONETIME ONE Stop: 09/20/19 19:07 Last Admin: 08/04/20 18:25 Dose: 250 mls/hr Documented by: Ceftriaxone Sodium 1 gm/ (Sodium Chloride) 50 mls @ 100 mls/hr IV Q24H [facility] [place] Last Admin: 09/26/19 19:42 Dose: 100 mls/hr Documented by: Azithromycin 250 mg/ Sodium (Chloride) 250 mls @ 250 mls/hr IV Q24H [facility] [place] Last Admin: 09/26/19 20:53 Dose: 250 mls/hr Documented by: Dextrose/Sodium Chloride (Dextrose 5%-1/2 Ns) 1,000 mls @ 75 mls/hr IV ASDIRECTED [facility] [place] Last Admin: 09/21/19 11:00 Dose: 75 mls/hr Documented by: Dextrose/Sodium Chloride (Dextrose 5%-1/2 Ns) 1,000 mls @ 125 mls/hr IV ASDIRECTED [facility] [place] Last Admin: 09/22/19 11:15 Dose: 125 mls/hr Documented by: Potassium Chloride/Sodium Chloride (1/2 Ns With 20 Meq Kcl) 1,000 mls @ 100 mls/hr IV ASDIRECTED [facility] [place] Last Admin: 09/25/19 20:20 Dose: 100 mls/hr Documented by: Potassium Chloride/Sodium Chloride (1/2 Ns With 20 Meq Kcl) 1,000 mls @ 75 mls/hr IV ASDIRECTED [facility] [place] Last Admin: 09/26/19 18:30 Dose: 75 mls/hr Documented by: Latanoprost (Xalatan 0.005% Ophth Soln) 0 ml EYELF BEDTIME [facility] [place] Last Admin: 09/22/19 22:36 Dose: Not Given Documented by: Lorazepam (Ativan) 1 mg IVPUSH Q4H PRN PRN Reason: Agitation Last Admin: 09/22/19 11:13 Dose: 1 mg Documented by: Lorazepam (Ativan) 1 mg IVPUSH ONETIME ONE Stop: 09/22/19 13:55 Last Admin: 09/22/19 15:15 Dose: 1 mg Documented by: Morphine Sulfate (Morphine) 2 mg IM Q2H PRN PRN Reason: Pain (severe 7-10) Last Admin: 10/01/19 18:45 Dose: 2 mg Documented by: Morphine Sulfate (Morphine 10 Mg/5 Ml) 1 mg PO Q2H PRN PRN Reason: Dyspnea Last Admin: 08/18/20 09:13 Dose: 1 mg Documented by: Morphine Sulfate (Morphine) Confirm Administered Dose 2 mg .ROUTE .STK-MED ONE Stop: 10/03/19 18:03 Last Admin: 10/04/19 07:13 Dose: Not Given Documented by: Morphine Sulfate (Morphine) Confirm Administered Dose 2 mg .ROUTE .STK-MED ONE Stop: 10/03/19 23:35 Last Admin: 10/03/19 23:45 Dose: 1 mg Documented by: Morphine Sulfate (Morphine) Confirm Administered Dose 2 mg .ROUTE .STK-MED ONE Stop: 10/04/19 02:28 Last Admin: 10/04/19 02:30 Dose: 1 mg Documented by: Morphine Sulfate (Morphine) Confirm Administered Dose 2 mg .ROUTE .STK-MED ONE Stop: 10/04/19 07:03 Last Admin: 10/04/19 07:09 Dose: Not Given Documented by: Morphine Sulfate (Morphine 20 Mg/Ml Soln) 1 mg PO Q2H PRN PRN Reason: IV Use [Carbidopa-Levodopa (25-250] *Pt Own Med*) 1 each PO Q2HR [facility] [place] Last Admin: 09/27/19 23:15 Dose: Not Given Documented by: Omeprazole (Omeprazole) 20 mg PO ACBREAKFAST [facility] [place] Last Admin: 09/27/19 07:57 Dose: Not Given Documented by: Polyethylene Glycol (Miralax) 17 gm PO DAILY PRN PRN Reason: Constipation Last Admin: 09/23/19 16:58 Dose: 17 gm Documented by: Quetiapine Fumarate (Seroquel) 25 mg PO DAILY [facility] [place] Last Admin: 09/27/19 07:57 Dose: Not Given Documented by: Sodium Chloride (Saline Flush) 10 ml FLUSH ASDIRECTED PRN PRN Reason: Keep Vein Open Last Admin: 09/26/19 18:33 Dose: 10 ml Documented by: Sodium Chloride (Saline Flush) 10 ml FLUSH BID [facility] [place] Last Admin: 09/27/19 20:40 Dose: Not Given Documented by: - Exam General: Obtunded Lungs: Decreased Breath Sounds, Rales, Rhonchi Cardiovascular: Tachycardia GI/Abdominal Exam: Soft, Abnormal Bowel Sounds (decreased) Sepsis Event Note - Evaluation Sepsis Screening Result: Sepsis Risk - Focused Exam Vital Signs: Vital Signs Pulse Ox 10/05/19 17:20 93 L - Problem List & Annotations (1) Severe muscle deconditioning SNOMED Code(s): 241623380 Code(s): R29.898 - OTH SYMPTOMS AND SIGNS INVOLVING THE MUSCULOSKELETAL SYSTEM Status: Acute Current Visit: Yes (2) Decubitus skin ulcer SNOMED Code(s): 724979034 Code(s): L89.90 - PRESSURE ULCER OF UNSPECIFIED SITE, UNSPECIFIED STAGE Status: Acute Current Visit: Yes (3) Pneumonia SNOMED Code(s): 818332837 Code(s): J18.9 - PNEUMONIA, UNSPECIFIED ORGANISM Status: Acute Current Visit: Yes (4) Comfort measures only status SNOMED Code(s): 54024490994172 Code(s): Z51.5 - ENCOUNTER FOR PALLIATIVE CARE Status: Acute Priority: High Current Visit: Yes - Problem List Review Problem List Initiated/Reviewed/Updated: Yes - Assessment Assessment:: See plan Remains in DNR/DNI/Comfort Measures only Pt with no significant changes in his health condition. Of incidental note pt decubitus ulcers on his buttocks seem to be improving - Plan Plan:: Ehospitalist collaboration: 84-year-old male admitted to the emergency room for left lower lobe pneumonia, hypotension, dehydration/volume depletion. Patient presented to the ED initially unresponsive, genearlized weakness, lethargy, and hypotension with blood pressure 71/39. Patient has past medical history of Parkinson's, hypertension, chronic pain. He is also nonverbal at baseline. He lives at home with his and his son. He was found to have leukocytosis of 14. Lactic acid was 1.8. Chest x-ray left lower lobe pneumonia. COVID negative. Initial respiratory rate was 28 and he had acute hypoxic respiratory failure with O2 sat 84% on room air. Since receiving 2 L of IV fluid blood pressure is improved to 119/42. Heart rate 69. Respiratory rate 16. O2 sat 95% on 2 L nasal cannula. He has been given 1 g of Rocephin, also is receiving azithromycin. On telemedicine camera evaluation, at this time the controls for stethoscope are not working. But, I was still able to evaluate the patient over camera, no respiratory distress via video view, he was lying in bed, he is nonverbal at baseline. He appeared calm. He was cooperative. He does have a right lower leg dixon wound that has been following with wound care outpatient. We will continue Vaseline and gauze and follow-up with physical therapy wound care tomorrow. No signs of surrounding cellulitis. Abd soft for nursing palpation. Assessment and plan: Hypotension related to pneumonia, volume depletion/dehydration. Responded well to IV fluids and now resolved with blood pressure 119/42, hold his antihypertensive medications tonite, reassess tomorrow. Continue IV fluids normal saline at 75 mL/h. Had decreased mentation on arrival to ED, but is better, now, hold Melatonin and tramadol for now. Held Gabapentin with his renal function, reassess in the am to resume to avoid withdrawal. Community-acquired pneumonia, left lower lobe,acute hypoxic resp failure: Continue Rocephin and Azithromycin. R. leg wound: continue wound care, no signs of cellulitis. Parkinson's: continue home meds. LONA on CKD, baseline cr 1.3, today 2.47, he is making urine. Avoid hypotension or nephrotoxic meds. Monitor uop and repeat renal function in the AM. K was not elevated. Please call E hospitalist with any questions. 09/26/19 Decubitus ulcerations - Continue wound care and management. Dressing to be changed daily and as needed. Parkinsons - medications as tolerated - continue management if able to ingest meds. Leg wound - continue wound care and dressings. Pneumonia - finish course of IV antibiotics - resolving. Delirium - patient remains obtunded at this time. Plan of care to be discussed with family when they arrive today. May discuss comfort cares as patient was changed to DNR/DNI this weekend by provider and family. Follow up labs today for management plan. 09/27/19 - Patient placed into comfort cares. Discussed with family regarding plan of care and all are present and in agreement with comfort cares. DC all oral meds. We can initiate hospice medications as needed. Family to be present per protocols. 09/28/19 - Patient has no changes in comfort cares. Continue current management. 10/03/19 Pt remains DNR No changes in condition 10/04/19 Patient has increased respirations. Morphine added for comfort. We will monitor any distress and keep breathing comfortable. Continue to monitor secretions. No other changes at this time. Patient continues to get weaker with decreased movement and no agitation. Continue mouth swabs and scopolamine patch as needed. Please contact e-hospitalist if any concerns or acute questions today or tonight until rounding tomorrow. 10/05/19 Patient continues to have increased respirations. He is obtunded and continues to get weaker. We will continue with morphine at this time for comfort and family are in agreement.
[2019-10-06] MEDS: Morphine Oral Concentrate 20 MG/ML 30 ML Bottle PO PRN ×14 (01:00→22:21)
[2019-10-06] MEDS ORDERED: Acetaminophen 650 MG Supp RECTAL PRN (09:53)
--- NOTE | 2019-10-06 10:06 | PCM.PN ---
- General Info Date of Service: 10/06/19 Subjective Update: Patient continues to have rapid shallow respirations. Family have been present daily. Patient has increased mottling of the extremities and trunk. Patient appears comfortable with morphine administration but does get agitated at sooner intervals. Functional Status: Reports: Pain Controlled, Other (Patient on comfort cares and has been getting repositioned and dressings changed. ) - Patient Data Vitals - Most Recent: Last Vital Signs Temp 36.4 C 10/03/19 08:00 Pulse 71 10/03/19 08:00 Resp 22 H 10/03/19 08:00 BP 161/59 H 10/03/19 08:00 Pulse Ox 93 L 10/05/19 17:20 Weight - Most Recent: 63.503 kg Med Orders - Current: Current Medications Acetaminophen (Tylenol) 650 mg RECTAL Q6H PRN PRN Reason: Other Diphenhydramine HCl (Benadryl) 25 mg IM Q6H PRN PRN Reason: Anxiety Haloperidol Lactate (Haldol) 5 mg IM Q4H PRN PRN Reason: Agitation Last Admin: 09/24/19 01:19 Dose: 5 mg Documented by: Lorazepam (Ativan) 1 mg SUBCUT Q4H PRN PRN Reason: Agitation Last Admin: 10/01/19 10:12 Dose: 1 mg Documented by: Morphine Sulfate (Morphine 20 Mg/Ml Soln) 4 mg PO Q2H PRN PRN Reason: Other Last Admin: 10/06/19 06:13 Dose: 4 mg Documented by: Discontinued Medications Acetaminophen (Tylenol) 650 mg PO Q4H PRN PRN Reason: Pain (Mild 1-3)/fever Albuterol/Ipratropium (Duoneb 3.0-0.5 Mg/3 Ml) 3 ml NEB Q4H PRN PRN Reason: sob Allopurinol (Zyloprim) 100 mg PO DAILY PRN PRN Reason: pain Aspirin (Halfprin) 81 mg PO DAILY [facility] Last Admin: 09/27/19 07:57 Dose: Not Given Documented by: Bisacodyl (Dulcolax) 10 mg RECTAL ONETIME ONE Stop: 09/23/19 16:29 Last Admin: 09/23/19 16:59 Dose: 10 mg Documented by: Carbidopa/Levodopa (Sinemet Cr 50-200 Mg) 1 tab PO BEDTIME [facility] Carbidopa/Levodopa (Sinemet Cr 50-200 Mg) 1 tab PO DAILY@2200 [facility] Last Admin: 09/26/19 23:10 Dose: Not Given Documented by: Ceftriaxone Sodium (Rocephin) Confirm Administered Dose 1 gm .ROUTE .STK-MED ONE Stop: 09/20/19 15:01 Last Admin: 09/20/19 14:54 Dose: Not Given Documented by: Diphenhydramine HCl (Benadryl) Confirm Administered Dose 50 mg .ROUTE .STK-MED ONE Stop: 09/21/19 20:15 Last Admin: 09/22/19 06:38 Dose: Not Given Documented by: Diphenhydramine HCl (Benadryl) 25 mg IVPUSH BEDTIME PRN PRN Reason: Anxiety Last Admin: 09/26/19 02:52 Dose: 25 mg Documented by: Fentanyl (Sublimaze) 25 mcg IVPUSH ONETIME ONE Stop: 09/21/19 16:26 Last Admin: 09/21/19 16:26 Dose: 25 mcg Documented by: Gabapentin (Neurontin) 100 mg PO BID [facility] Haloperidol Lactate (Haldol) Confirm Administered Dose 5 mg .ROUTE .STK-MED ONE Stop: 09/21/19 20:15 Last Admin: 09/22/19 06:36 Dose: Not Given Documented by: Haloperidol Lactate (Haldol) 5 mg IM ONETIME ONE Stop: 09/21/19 20:35 Last Admin: 09/21/19 20:34 Dose: 5 mg Documented by: Sodium Chloride (Normal Saline) 1,000 mls @ 999 mls/hr IV .BOLUS ONE Stop: 09/20/19 15:19 Last Admin: 09/20/19 14:20 Dose: 999 mls/hr Documented by: Ceftriaxone Sodium 1 gm/ (Sodium Chloride) 50 mls @ 100 mls/hr IV ONETIME ONE Stop: 09/20/19 15:19 Last Admin: 09/20/19 15:15 Dose: 100 mls/hr Documented by: Sodium Chloride (Normal Saline) 1,000 mls @ 75 mls/hr IV ASDIRECTED [facility] Last Admin: 09/20/19 15:24 Dose: 999 mls/hr Documented by: Azithromycin 500 mg/ Sodium (Chloride) 250 mls @ 250 mls/hr IV ONETIME ONE Stop: 09/20/19 19:07 Last Admin: 09/20/19 18:25 Dose: 250 mls/hr Documented by: Ceftriaxone Sodium 1 gm/ (Sodium Chloride) 50 mls @ 100 mls/hr IV Q24H [facility] Last Admin: 09/26/19 19:42 Dose: 100 mls/hr Documented by: Azithromycin 250 mg/ Sodium (Chloride) 250 mls @ 250 mls/hr IV Q24H [facility] Last Admin: 09/26/19 20:53 Dose: 250 mls/hr Documented by: Dextrose/Sodium Chloride (Dextrose 5%-1/2 Ns) 1,000 mls @ 75 mls/hr IV ASDIRECTED [facility] Last Admin: 09/21/19 11:00 Dose: 75 mls/hr Documented by: Dextrose/Sodium Chloride (Dextrose 5%-1/2 Ns) 1,000 mls @ 125 mls/hr IV ASDIRECTED [facility] Last Admin: 09/22/19 11:15 Dose: 125 mls/hr Documented by: Potassium Chloride/Sodium Chloride (1/2 Ns With 20 Meq Kcl) 1,000 mls @ 100 mls/hr IV ASDIRECTED [facility] Last Admin: 09/25/19 20:20 Dose: 100 mls/hr Documented by: Potassium Chloride/Sodium Chloride (1/2 Ns With 20 Meq Kcl) 1,000 mls @ 75 mls/hr IV ASDIRECTED [facility] Last Admin: 09/26/19 18:30 Dose: 75 mls/hr Documented by: Latanoprost (Xalatan 0.005% Ophth Soln) 0 ml EYELF BEDTIME [facility] Last Admin: 09/22/19 22:36 Dose: Not Given Documented by: Lorazepam (Ativan) 1 mg IVPUSH Q4H PRN PRN Reason: Agitation Last Admin: 09/22/19 11:13 Dose: 1 mg Documented by: Lorazepam (Ativan) 1 mg IVPUSH ONETIME ONE Stop: 09/22/19 13:55 Last Admin: 09/22/19 15:15 Dose: 1 mg Documented by: Morphine Sulfate (Morphine) 2 mg IM Q2H PRN PRN Reason: Pain (severe 7-10) Last Admin: 10/01/19 18:45 Dose: 2 mg Documented by: Morphine Sulfate (Morphine 10 Mg/5 Ml) 1 mg PO Q2H PRN PRN Reason: Dyspnea Last Admin: 10/04/19 09:13 Dose: 1 mg Documented by: Morphine Sulfate (Morphine) Confirm Administered Dose 2 mg .ROUTE .STK-MED ONE Stop: 10/03/19 18:03 Last Admin: 10/04/19 07:13 Dose: Not Given Documented by: Morphine Sulfate (Morphine) Confirm Administered Dose 2 mg .ROUTE .STK-MED ONE Stop: 10/03/19 23:35 Last Admin: 10/03/19 23:45 Dose: 1 mg Documented by: Morphine Sulfate (Morphine) Confirm Administered Dose 2 mg .ROUTE .STK-MED ONE Stop: 10/04/19 02:28 Last Admin: 10/04/19 02:30 Dose: 1 mg Documented by: Morphine Sulfate (Morphine) Confirm Administered Dose 2 mg .ROUTE .STK-MED ONE Stop: 10/04/19 07:03 Last Admin: 10/04/19 07:09 Dose: Not Given Documented by: Morphine Sulfate (Morphine 20 Mg/Ml Soln) 1 mg PO Q2H PRN PRN Reason: IV Use [Carbidopa-Levodopa (25-250] *Pt Own Med*) 1 each PO Q2HR [facility] Last Admin: 09/27/19 23:15 Dose: Not Given Documented by: Omeprazole (Omeprazole) 20 mg PO ACBREAKFAST [facility] Last Admin: 09/27/19 07:57 Dose: Not Given Documented by: Polyethylene Glycol (Miralax) 17 gm PO DAILY PRN PRN Reason: Constipation Last Admin: 09/23/19 16:58 Dose: 17 gm Documented by: Quetiapine Fumarate (Seroquel) 25 mg PO DAILY [facility] Last Admin: 09/27/19 07:57 Dose: Not Given Documented by: Sodium Chloride (Saline Flush) 10 ml FLUSH ASDIRECTED PRN PRN Reason: Keep Vein Open Last Admin: 09/26/19 18:33 Dose: 10 ml Documented by: Sodium Chloride (Saline Flush) 10 ml FLUSH BID [facility] Last Admin: 09/27/19 20:40 Dose: Not Given Documented by: - Exam General: Obtunded Lungs: Decreased Breath Sounds Cardiovascular: Tachycardia Sepsis Event Note - Evaluation Sepsis Screening Result: Sepsis Risk - Problem List & Annotations (1) Severe muscle deconditioning SNOMED Code(s): 486677035 Code(s): R29.898 - [facility] SYMPTOMS AND SIGNS INVOLVING THE MUSCULOSKELETAL SYSTEM Status: Acute Current Visit: Yes (2) Decubitus skin ulcer SNOMED Code(s): 545321269 Code(s): L89.90 - PRESSURE ULCER OF UNSPECIFIED SITE, UNSPECIFIED STAGE Status: Acute Current Visit: Yes (3) Pneumonia SNOMED Code(s): 747496608 Code(s): J18.9 - PNEUMONIA, UNSPECIFIED ORGANISM Status: Acute Current Visit: Yes (4) Comfort measures only status SNOMED Code(s): 49967395869970 Code(s): Z51.5 - ENCOUNTER FOR PALLIATIVE CARE Status: Acute Priority: High Current Visit: Yes - Problem List Review Problem List Initiated/Reviewed/Updated: Yes - Assessment Assessment:: See plan Remains in DNR/DNI/Comfort Measures only Pt with no significant changes in his health condition. Of incidental note pt decubitus ulcers on his buttocks seem to be improving - Plan Plan:: Ehospitalist collaboration: 84-year-old male admitted to the emergency room for left lower lobe pneumonia, hypotension, dehydration/volume depletion. Patient presented to the ED initially unresponsive, genearlized weakness, lethargy, and hypotension with blood pressure 71/39. Patient has past medical history of Parkinson's, hypertension, chronic pain. He is also nonverbal at baseline. He lives at home with his and his son. He was found to have leukocytosis of 14. Lactic acid was 1.8. Chest x-ray left lower lobe pneumonia. COVID negative. Initial respiratory rate was 28 and he had acute hypoxic respiratory failure with O2 sat 84% on room air. Since receiving 2 L of IV fluid blood pressure is improved to 119/42. Heart rate 69. Respiratory rate 16. O2 sat 95% on 2 L nasal cannula. He has been given 1 g of Rocephin, also is receiving azithromycin. On telemedicine camera evaluation, at this time the controls for stethoscope are not working. But, I was still able to evaluate the patient over camera, no respiratory distress via video view, he was lying in bed, he is nonverbal at baseline. He appeared calm. He was cooperative. He does have a right lower leg dixon wound that has been following with wound care outpatient. We will continue Vaseline and gauze and follow-up with physical therapy wound care tomorrow. No signs of surrounding cellulitis. Abd soft for nursing palpation. Assessment and plan: Hypotension related to pneumonia, volume depletion/dehydration. Responded well to IV fluids and now resolved with blood pressure 119/42, hold his antihypertensive medications tonite, reassess tomorrow. Continue IV fluids normal saline at 75 mL/h. Had decreased mentation on arrival to ED, but is better, now, hold Melatonin and tramadol for now. Held Gabapentin with his renal function, reassess in the am to resume to avoid withdrawal. Community-acquired pneumonia, left lower lobe,acute hypoxic resp failure: Continue Rocephin and Azithromycin. R. leg wound: continue wound care, no signs of cellulitis. Parkinson's: continue home meds. LONA on CKD, baseline cr 1.3, today 2.47, he is making urine. Avoid hypotension or nephrotoxic meds. Monitor uop and repeat renal function in the AM. K was not elevated. Please call E hospitalist with any questions. 09/26/19 Decubitus ulcerations - Continue wound care and management. Dressing to be changed daily and as needed. Parkinsons - medications as tolerated - continue management if able to ingest meds. Leg wound - continue wound care and dressings. Pneumonia - finish course of IV antibiotics - resolving. Delirium - patient remains obtunded at this time. Plan of care to be discussed with family when they arrive today. May discuss comfort cares as patient was changed to DNR/DNI this weekend by provider and family. Follow up labs today for management plan. 09/27/19 - Patient placed into comfort cares. Discussed with family regarding plan of care and all are present and in agreement with comfort cares. DC all oral meds. We can initiate hospice medications as needed. Family to be present per protocols. 09/28/19 - Patient has no changes in comfort cares. Continue current management. 10/03/19 Pt remains DNR No changes in condition 10/04/19 Patient has increased respirations. Morphine added for comfort. We will monitor any distress and keep breathing comfortable. Continue to monitor secretions. No other changes at this time. Patient continues to get weaker with decreased movement and no agitation. Continue mouth swabs and scopolamine patch as needed. Please contact e-hospitalist if any concerns or acute questions today or tonight until rounding tomorrow. 10/05/19 Patient continues to have increased respirations. He is obtunded and continues to get weaker. We will continue with morphine at this time for comfort and family are in agreement. 10/06/19 Patient has increased mottling and shallower respirations. We will continue comfort cares. Patient may pass in the next few days.
--- NOTE | 2019-10-07 09:57 | PCM.DCSUM1 ---
Discharge Summary - Discharge Data Discharge Date: 10/07/19 Discharge Disposition: 20 Condition: Serious - Referral to Home Health Primary Care Physician: PCP None - Discharge Diagnosis/Problem(s) (1) Severe muscle deconditioning SNOMED Code(s): 303800588 ICD Code: R29.898 - OTH SYMPTOMS AND SIGNS INVOLVING THE MUSCULOSKELETAL SYSTEM Status: Acute (2) Decubitus skin ulcer SNOMED Code(s): 670971065 ICD Code: L89.90 - PRESSURE ULCER OF UNSPECIFIED SITE, UNSPECIFIED STAGE Status: Acute (3) Pneumonia SNOMED Code(s): 106783309 ICD Code: J18.9 - PNEUMONIA, UNSPECIFIED ORGANISM Status: Acute (4) Comfort measures only status SNOMED Code(s): 22943928939484 ICD Code: Z51.5 - ENCOUNTER FOR PALLIATIVE CARE Status: Acute Priority: High - Patient Summary/Data Consults: Consultations 09/21/19 09:57 Consult to Speech Language Pathology [BUSINESS QUALITY ASSURANCE ANALYST Evaluation and Treatment] [CONS] Routine Please Evaluate and Treat BUSINESS QUALITY ASSURANCE ANALYST Reason for Consult: Swallow This query below is only for informational purposes and is not editable. Admission Diagnosis/Problem: Pneumonia 09/21/19 14:19 PT Evaluation and Treatment [CONS] Routine Please Evaluate and Treat. PT Reason for Consult: Wound Care This query below is only for informational purposes and is not editable. Admission Diagnosis/Problem: Pneumonia - Patient Instructions Diet: Pureed Driving: Do Not Drive - Discharge Plan Home Medications: Home Meds Carbidopa/Levodopa [Carbidopa-Levodopa 25-250] 1 each PO Q2HR 11/29/12 [History] Carbidopa/Levodopa [Sinemet CR 50-200] 1 each PO BEDTIME 11/29/12 [History] Losartan [Cozaar] 50 mg PO DAILY 11/29/12 [History] Omeprazole 20 mg PO DAILY 11/29/12 [History] allopurinoL [Zyloprim] 100 mg PO DAILY PRN 11/29/12 [History] amLODIPine Besylate [Norvasc] 10 mg PO DAILY 11/29/12 [History] atenoloL [Atenolol] 25 mg PO DAILY 11/29/12 [History] hydroCHLOROthiazide [Hydrochlorothiazide] 12.5 mg PO DAILY 11/29/12 [History] Acetaminophen [Acetaminophen Extra Strength] 1,000 mg PO Q6HR PRN 11/12/18 [History] Aspirin [Halfprin] 81 mg PO DAILY 11/12/18 [History] Gabapentin [Neurontin] 100 mg PO BID 11/12/18 [History] Latanoprost/Pf [Latanoprost 0.005% Eye Drop] 7.5 ml EYELF BEDTIME 11/12/18 [History] Melatonin 3 mg PO BEDTIME PRN 11/12/18 [History] polyethylene glycoL 3350 [MiraLAX] 17 gm PO DAILY PRN 11/12/18 [History] traMADol [Ultram] 50 mg PO QID PRN 11/12/18 [History] Forms: ED Department Discharge Referrals: PCP,None [Primary Care Provider] - - Discharge Summary/Plan Comment DC Time >30 min.: No Discharge Summary/Plan Comment: Patient passed at 0207 hrs. Family notified and came in for final visit prior to transfer to home. - Patient Data Vitals - Most Recent: Last Vital Signs Temp 36.4 C 10/03/19 08:00 Pulse 71 10/03/19 08:00 Resp 22 H 10/03/19 08:00 BP 161/59 H 10/03/19 08:00 Pulse Ox 93 L 10/05/19 18:00 Weight - Most Recent: 63.503 kg Med Orders - Current: Current Medications Discontinued Medications Acetaminophen (Tylenol) 650 mg PO Q4H PRN PRN Reason: Pain (Mild 1-3)/fever Acetaminophen (Tylenol) 650 mg RECTAL Q6H PRN PRN Reason: Other Last Admin: 10/06/19 10:34 Dose: 650 mg Documented by: Albuterol/Ipratropium (Duoneb 3.0-0.5 Mg/3 Ml) 3 ml NEB Q4H PRN PRN Reason: sob Allopurinol (Zyloprim) 100 mg PO DAILY PRN PRN Reason: pain Aspirin (Halfprin) 81 mg PO DAILY [facility] Last Admin: 09/27/19 07:57 Dose: Not Given Documented by: Bisacodyl (Dulcolax) 10 mg RECTAL ONETIME ONE Stop: 09/23/19 16:29 Last Admin: 09/23/19 16:59 Dose: 10 mg Documented by: Carbidopa/Levodopa (Sinemet Cr 50-200 Mg) 1 tab PO BEDTIME [facility] Carbidopa/Levodopa (Sinemet Cr 50-200 Mg) 1 tab PO DAILY@2200 [facility] Last Admin: 09/26/19 23:10 Dose: Not Given Documented by: Ceftriaxone Sodium (Rocephin) Confirm Administered Dose 1 gm .ROUTE .STK-MED ONE Stop: 09/20/19 15:01 Last Admin: 09/20/19 14:54 Dose: Not Given Documented by: Diphenhydramine HCl (Benadryl) Confirm Administered Dose 50 mg .ROUTE .STK-MED ONE Stop: 09/21/19 20:15 Last Admin: 09/22/19 06:38 Dose: Not Given Documented by: Diphenhydramine HCl (Benadryl) 25 mg IVPUSH BEDTIME PRN PRN Reason: Anxiety Last Admin: 09/26/19 02:52 Dose: 25 mg Documented by: Diphenhydramine HCl (Benadryl) 25 mg IM Q6H PRN PRN Reason: Anxiety Fentanyl (Sublimaze) 25 mcg IVPUSH ONETIME ONE Stop: 09/21/19 16:26 Last Admin: 09/21/19 16:26 Dose: 25 mcg Documented by: Gabapentin (Neurontin) 100 mg PO BID [facility] Haloperidol Lactate (Haldol) Confirm Administered Dose 5 mg .ROUTE .STK-MED ONE Stop: 09/21/19 20:15 Last Admin: 09/22/19 06:36 Dose: Not Given Documented by: Haloperidol Lactate (Haldol) 5 mg IM ONETIME ONE Stop: 09/21/19 20:35 Last Admin: 09/21/19 20:34 Dose: 5 mg Documented by: Haloperidol Lactate (Haldol) 5 mg IM Q4H PRN PRN Reason: Agitation Last Admin: 09/24/19 01:19 Dose: 5 mg Documented by: Sodium Chloride (Normal Saline) 1,000 mls @ 999 mls/hr IV .BOLUS ONE Stop: 09/20/19 15:19 Last Admin: 09/20/19 14:20 Dose: 999 mls/hr Documented by: Ceftriaxone Sodium 1 gm/ (Sodium Chloride) 50 mls @ 100 mls/hr IV ONETIME ONE Stop: 09/20/19 15:19 Last Admin: 09/20/19 15:15 Dose: 100 mls/hr Documented by: Sodium Chloride (Normal Saline) 1,000 mls @ 75 mls/hr IV ASDIRECTED [facility] Last Admin: 09/20/19 15:24 Dose: 999 mls/hr Documented by: Azithromycin 500 mg/ Sodium (Chloride) 250 mls @ 250 mls/hr IV ONETIME ONE Stop: 09/20/19 19:07 Last Admin: 09/20/19 18:25 Dose: 250 mls/hr Documented by: Ceftriaxone Sodium 1 gm/ (Sodium Chloride) 50 mls @ 100 mls/hr IV Q24H [facility] Last Admin: 09/26/19 19:42 Dose: 100 mls/hr Documented by: Azithromycin 250 mg/ Sodium (Chloride) 250 mls @ 250 mls/hr IV Q24H [facility] Last Admin: 09/26/19 20:53 Dose: 250 mls/hr Documented by: Dextrose/Sodium Chloride (Dextrose 5%-1/2 Ns) 1,000 mls @ [facility] Admin: 09/21/19 11:00 Dose: 75 mls/hr Documented by: Dextrose/Sodium Chloride (Dextrose 5%-1/2 Ns) 1,000 mls @ 125 mls/hr IV ASDIRECTED [facility] Last Admin: 09/22/19 11:15 Dose: 125 mls/hr Documented by: Potassium Chloride/Sodium Chloride (1/2 Ns With 20 Meq Kcl) 1,000 mls @ 100 mls/hr IV ASDIRECTED [facility] Last Admin: 09/25/19 20:20 Dose: 100 mls/hr Documented by: Potassium Chloride/Sodium Chloride (1/2 Ns With 20 Meq Kcl) 1,000 mls @ 75 mls/hr IV ASDIRECTED [facility] Last Admin: 09/26/19 18:30 Dose: 75 mls/hr Documented by: Latanoprost (Xalatan 0.005% Oph Soln) 0 ml EYELF BEDTIME [facility] Last Admin: 09/22/19 22:36 Dose: Not Given Documented by: Lorazepam (Ativan) 1 mg IVPUSH Q4H PRN PRN Reason: Agitation Last Admin: 09/22/19 11:13 Dose: 1 mg Documented by: Lorazepam (Ativan) 1 mg IVPUSH ONETIME ONE Stop: 09/22/19 13:55 Last Admin: 09/22/19 15:15 Dose: 1 mg Documented by: Lorazepam (Ativan) 1 mg SUBCUT Q4H PRN PRN Reason: Agitation Last Admin: 10/01/19 10:12 Dose: 1 mg Documented by: Morphine Sulfate (Morphine) 2 mg IM Q2H PRN PRN Reason: Pain (severe 7-10) Last Admin: 10/01/19 18:45 Dose: 2 mg Documented by: Morphine Sulfate (Morphine 10 Mg/5 Ml) 1 mg PO Q2H PRN PRN Reason: Dyspnea Last Admin: 10/04/19 09:13 Dose: 1 mg Documented by: Morphine Sulfate (Morphine) Confirm Administered Dose 2 mg .ROUTE .STK-MED ONE Stop: 10/03/19 18:03 Last Admin: 10/04/19 07:13 Dose: Not Given Documented by: Morphine Sulfate (Morphine) Confirm Administered Dose 2 mg .ROUTE .STK-MED ONE Stop: 10/03/19 23:35 Last Admin: 10/03/19 23:45 Dose: 1 mg Documented by: Morphine Sulfate (Morphine) Confirm Administered Dose 2 mg .ROUTE .STK-MED ONE Stop: 10/04/19 02:28 Last Admin: 10/04/19 02:30 Dose: 1 mg Documented by: Morphine Sulfate (Morphine) Confirm Administered Dose 2 mg .ROUTE .STK-MED ONE Stop: 10/04/19 07:03 Last Admin: 10/04/19 07:09 Dose: Not Given Documented by: Morphine Sulfate (Morphine 20 Mg/Ml Soln) 1 mg PO Q2H PRN PRN Reason: IV Use Morphine Sulfate (Morphine 20 Mg/Ml Soln) 4 mg PO Q2H PRN PRN Reason: Other Last Admin: 10/06/19 12:55 Dose: 4 mg Documented by: Morphine Sulfate (Morphine 20 Mg/Ml Soln) 5 mg PO Q1H PRN PRN Reason: Other Last Admin: 10/06/19 18:50 Dose: 5 mg Documented by: Morphine Sulfate (Morphine 20 Mg/Ml Soln) 10 mg PO Q2H PRN PRN Reason: Other Last Admin: 10/06/19 22:21 Dose: 10 mg Documented by: [Carbidopa-Levodopa (25-250] *Pt Own Med*) 1 each PO Q2HR [facility] Last Admin: 09/27/19 23:15 Dose: Not Given Documented by: Omeprazole (Omeprazole) 20 mg PO ACBREAKFAST [facility] Last Admin: 09/27/19 07:57 Dose: Not Given Documented by: Polyethylene Glycol (Miralax) 17 gm PO DAILY PRN PRN Reason: Constipation Last Admin: 09/23/19 16:58 Dose: 17 gm Documented by: Quetiapine Fumarate (Seroquel) 25 mg PO DAILY [facility] Last Admin: 09/27/19 07:57 Dose: Not Given Documented by: Sodium Chloride (Saline Flush) 10 ml FLUSH ASDIRECTED PRN PRN Reason: Keep Vein Open Last Admin: 09/26/19 18:33 Dose: 10 ml Documented by: Sodium Chloride (Saline Flush) 10 ml FLUSH BID [facility] Last Admin: 09/27/19 20:40 Dose: Not Given Documented by: *Q Meaningful Use (DIS) - VTE *Q VTE Mechanical Contraindications *Q: Bilat Sensory Neuropathy
== END 2019-10-07 02:07 | disposition expired | DRG 193 ==
LOC: LB.ED 13:57 → LB.MS 16:28
PROVIDERS: ADMIT Physician Assistant Surgical; ATTEND Family Medicine
DX: J18.9 Pneumonia, unspecified organism (principal); J96.01 Acute respiratory failure with hypoxia; N17.9 Acute kidney failure, unspecified; Z51.5 Encounter for palliative care; Z66 Do not resuscitate; I95.9 Hypotension, unspecified; E86.0 Dehydration; G20 Parkinson's disease; G89.29 Other chronic pain; L89.322 Pressure ulcer of left buttock, stage 2; L89.312 Pressure ulcer of right buttock, stage 2; Z20.828 Contact with and (suspected) exposure to other viral communicable diseases; S81.801A Unspecified open wound, right lower leg, initial encounter; I12.9 Hypertensive chronic kidney disease with stage 1 through stage 4 chronic kidney disease, or unspecified chronic kidney disease; G62.9 Polyneuropathy, unspecified; H26.8 Other specified cataract; N18.9 Chronic kidney disease, unspecified; R41.0 Disorientation, unspecified; Z79.82 Long term (current) use of aspirin; Z79.899 Other long term (current) drug therapy; Z88.6 Allergy status to analgesic agent; Z88.5 Allergy status to narcotic agent; Z88.8 Allergy status to other drugs, medicaments and biological substances
CPT/HCPCS: 36415; 51702; 71045; 80048; 80053; 81001; 81003; 83605; 84439; 84443; 84482; 85025; 87040; 87086; 92526-GN; 92610-GN; 93005; 96361; 96365; 97161-GP; 97597-GP; 99231; 99232; 99238; 99285-25; A9270-GY; J0456; J0696; J1200; J1630; J2060; J2270; J3010; J3480; J7030; J7042; J7050; U0002